=== PATIENT | female | born 1940 | race Caucasian/White ===

== ENCOUNTER → 2019-01-05 | Day surgery (SDC) | payer MEDICARE, BC ==
[~2019-01-05] MED LIST: Tropicamide 0.5% Ophth Soln 15 ML Bottle EYERT SCH
[2019-01-05] MEDS: Brimonidine 0.2% Ophth Soln 5 ML Bottle EYERT SCH ×2 (12:22→13:08)
[2019-01-05] MEDS: Tropicamide 1% Ophth Soln 15 ML Bottle EYERT SCH ×4 (12:23→12:35)
[2019-01-05] MEDS: Phenylephrine 2.5% Ophth Soln 2 ML Bot EYERT SCH ×4 (12:25→12:37)
== END ==
LOC: JD.SDS 11:11
PROVIDERS: ATTEND Ophthalmology
DX: H26.491 Other secondary cataract, right eye (principal); H16.223 Keratoconjunctivitis sicca, not specified as Sjogren's, bilateral; H16.103 Unspecified superficial keratitis, bilateral; H02.834 Dermatochalasis of left upper eyelid; H02.831 Dermatochalasis of right upper eyelid; M19.90 Unspecified osteoarthritis, unspecified site; E78.00 Pure hypercholesterolemia, unspecified; I10 Essential (primary) hypertension; Z98.41 Cataract extraction status, right eye; Z98.42 Cataract extraction status, left eye; Z96.1 Presence of intraocular lens; Z79.02 Long term (current) use of antithrombotics/antiplatelets; Z79.899 Other long term (current) drug therapy; Z87.891 Personal history of nicotine dependence; Z83.518 Family history of other specified eye disorder

== ENCOUNTER 2019-10-16 12:50 | Emergency (ER) | payer MEDICARE, BC ==
[2019-10-16] MEDS ORDERED: Sodium Chloride 0.9% 10 ML Syringe FLUSH PRN (12:59)
[2019-10-16 13:03] VITALS: BP 128/77; PULSE 55
--- NOTE | 2019-10-16 13:44 | CT ---
Head CT Technique: Multiple axial sections through the brain were obtained. Intravenous contrast was not utilized. Comparison: Prior head CT study of 02/27/16. Findings: Aneurysm clip is seen causing artifact. Cystic lesion is noted within the left thalamus measuring 2.5 cm x 2.0 cm. On prior head CT exam this measures 2.3 cm x 1.8 cm. This causes mass effect upon the adjacent left frontal horn as well as slight midline shift. Mild diminished density is noted within portions of the periventricular white matter compatible with small vessel ischemic demyelination change. No other abnormal parenchymal densities are seen. No evidence of intracranial hemorrhage. No midline shift or mass effect is seen. Bone window settings were reviewed which show no acute calvarial abnormality. Mastoid sinuses are clear. Slight mucosal thickening seen within the ethmoid sinuses felt to be chronic. Impression: 1. Aneurysm clip causing artifact. 2. Cystic lesion within the left thalamus identified on prior study and felt to be minimally increased in size. This causes mass effect upon the left frontal horn and mild midline shift. 3. Small vessel ischemic demyelination change. 4. Nothing acute is appreciated on noncontrast head CT exam. Diagnostic code #3 This report was dictated in [place] Standard Time
--- NOTE | 2019-10-16 14:32 | EDM.PDOC ---
ED HPI GENERAL MEDICAL PROBLEM - General Chief Complaint: Neurological Problem Stated Complaint: POSSIBLE STROKE SYMPTOMS Time Seen by Provider: 10/16/19 12:59 Source of Information: Reports: Patient, Family History Limitations: Reports: No Limitations - History of Present Illness INITIAL COMMENTS - FREE TEXT/NARRATIVE: The patient presents with confusion, left sided facial droop and left arm weakness. This has been going on for about 2 months. She has a history of an aneurysm in 2004. She was sent to [facility] and she had clips placed. She has been getting follow up CTs since then. She sends them to the clinic. Her last one was last year and she does not need another one for about 7 years. Her daughter is with her and her family has noticed some left arm weakness and facial drooping. The symptoms will come and go and for the past few days it is more constant. She will also walk with a shuffling gate. She was confused today and that is what prompted her family to bring her in. She denies a headache, fever, chills, cough, congestion, runny nose, chest pain, shortness of breath, abdominal pain, nausea, vomiting or dysuria. Onset: Gradual Duration: Week(s): Location: Reports: Face, Upper Extremity, Left, Lower Extremity, Left Severity: Moderate Improves with: Reports: None Worsens with: Reports: None Associated Symptoms: Reports: No Other Symptoms - Related Data Allergies Allergy/AdvReac Type Severity Reaction Status Date / Time No Known Allergies Allergy Verified 10/16/19 13:02 Home Meds: Home Meds Gabapentin 300 mg PO BEDTIME 06/01/16 [History] Anastrozole [Arimidex] 1 mg PO DAILY 01/04/19 [History] Clopidogrel Bisulfate [Clopidogrel] 75 mg PO DAILY 01/04/19 [History] Diltiazem HCl [Cardizem] 120 mg PO DAILY 01/04/19 [History] Imipramine HCl [Imipramine] 25 mg PO BEDTIME 01/04/19 [History] Lisinopril 30 mg PO DAILY 01/04/19 [History] Rosuvastatin [Crestor] 20 mg PO DAILY 01/04/19 [History] Sertraline [Zoloft] 100 mg PO DAILY 01/04/19 [History] Ascorbic Acid/Vitamin E/Biotin [Hair Skin Nails-Biotin Gummies] 1 tab PO TID [History] Aspirin 81 mg PO BEDTIME 10/16/19 [History] Calcium Carbonate [Calcium] 600 mg PO BID 10/16/19 [History] Dextrin [Fiber] 1 pack PO BID 10/16/19 [History] Fish Oil/Borage/Flax/Om3,6,9 1 [[place] 3-6-9 Complex Softgel] 1 tab PO DAILY [History] L.acidoph,Paracasei, B.lactis [Probiotic] 1 cap PO BID 10/16/19 [History] Metoprolol Succinate [Toprol Xl] 50 mg PO DAILY 10/16/19 [History] Multivitamin [Multivitamins] 1 cap PO DAILY 10/16/19 [History] Past Medical History HEENT History: Reports: Cataract, Impaired Vision Other HEENT History: wears glasses Cardiovascular History: Reports: High Cholesterol, Hypertension Respiratory History: Reports: COPD Genitourinary History: Reports: Urinary Incontinence 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: Musculoskeletal History: Reports: Arthritis, Neck Pain, Chronic Neurological History: Reports: Cerebral Aneurysms, CVA, Other (See Below) Other Neuro History: aneursym Psychiatric History: Reports: Anxiety Oncologic (Cancer) History: Reports: Breast - Infectious Disease History Infectious Disease History: Reports: Chicken Pox, Measles, Mumps - Past Surgical History HEENT Surgical History: Reports: Naso-Sinus Surgery GI Surgical History: Reports: Appendectomy, Cholecystectomy, Colonoscopy Neurological Surgical History: Reports: Other (See Below) Other Neurological Surgeries/Procedures: coil Musculoskeletal Surgical History: Reports: Shoulder Surgery, Other (See Below) Oncologic Surgical History: Reports: Mastectomy Social & Family History - Family History Family Medical History: Noncontributory - Tobacco Use Smoking Status *Q: Former Smoker Used Tobacco, but Quit: Yes Month/Year Tobacco Last Used: 1994 - Caffeine Use Caffeine Use: Reports: Coffee - Recreational Drug Use Recreational Drug Use: No - Living Situation & Occupation Living situation: Reports: Occupation: Retired ED ROS GENERAL - Review of Systems Review Of Systems: See Below Constitutional: Reports: No Symptoms HEENT: Reports: No Symptoms Respiratory: Reports: No Symptoms Cardiovascular: Reports: No Symptoms Endocrine: Reports: No Symptoms GI/Abdominal: Reports: No Symptoms : Reports: No Symptoms Musculoskeletal: Reports: No Symptoms Skin: Reports: No Symptoms Neurological: Reports: Weakness (Moderate weakness to left hand, mild weakness to left arm and left leg with mild facial droop) ED EXAM, NEURO - Physical Exam Exam: See Below Exam Limited By: No Limitations General Appearance: Alert, No Apparent Distress Ears: Normal External Exam Nose: Normal Inspection Head Exam: Atraumatic, Normocephalic Neck: Normal Inspection Respiratory/Chest: No Respiratory Distress, Lungs Clear, Normal Breath Sounds Cardiovascular: Regular Rate, Rhythm, No Edema, No Murmur GI/Abdominal: Soft, Non-Tender, No Organomegaly Neurological: Alert, Oriented x 3, Other (Moderate weakness to the left hand, mild weakness to the left arm and leg) Extremities: Normal Inspection EKG INTERPRETATION EKG Date: 10/16/19 Time: 13:50 Rhythm: Other (sinus bradycardia) Rate (Beats/Min): 58 [place]: Normal P-Wave: Present QRS: Normal ST-T: Normal QT: Normal Course - Vital Signs Last Recorded V/S: Last Vital Signs Temp 98.2 F 10/16/19 12:58 Pulse 55 L 10/16/19 12:58 Resp 19 10/16/19 12:58 BP 128/77 10/16/19 12:58 Pulse Ox 98 10/16/19 12:58 - Orders/Labs/Meds Orders: Active Orders 24 hr Category Date Time Status Cardiac Monitoring [RC] . DIRECTED Care 10/16/19 12:59 Active EKG Documentation Completion [RC] STAT Care 10/16/19 13:00 Active Peripheral IV Care [RC] . DIRECTED Care 10/16/19 13:00 Active Sodium Chloride 0.9% [Saline Flush] Med 10/16/19 12:59 Active 10 ml FLUSH ASDIRECTED PRN Peripheral IV Insertion Adult [OM.PC] Stat Oth 10/16/19 12:59 Ordered Medication Orders Sodium Chloride (Saline Flush) 10 ml FLUSH ASDIRECTED PRN PRN Reason: Keep Vein Open Last Admin: 10/16/19 13:37 Dose: 10 ml Labs: Laboratory Tests 10/16/19 10/16/19 10/16/19 Range/Units 13:35 13:35 13:35 WBC 3.58 L (3.98-10.04) K/mm3 RBC 4.04 (3.98-5.22) M/mm3 Hgb 10.9 L D (11.2-15.7) gm/dl Hct 34.3 (34.1-44.9) % MCV 84.9 (79.4-94.8) fl MCH 27.0 (25.6-32.2) pg MCHC 31.8 L (32.2-35.5) g/dl RDW Std Deviation 42.4 (36.4-46.3) fL Plt Count 154 L (182-369) K/mm3 MPV 9.6 (9.4-12.3) fl Neut % (Auto) 54.1 (34.0-71.1) % Lymph % (Auto) 31.3 (19.3-51.7) % [place] % (Auto) 11.2 (4.7-12.5) % Eos % (Auto) 2.5 (0.7-5.8) Baso % (Auto) 0.6 (0.1-1.2) % Neut # (Auto) 1.94 (1.56-6.13) K/mm3 Lymph # (Auto) 1.12 L (1.18-3.74) K/mm3 [place] # (Auto) 0.40 H (0.24-0.36) K/mm3 Eos # (Auto) 0.09 (0.04-0.36) K/mm3 Baso # (Auto) 0.02 (0.01-0.08) K/mm3 PT 12.6 H (9.7-12.0) SECONDS INR 1.17 APTT 24 (22-31) SECONDS Sodium 144 (136-145) mEq/L Potassium 3.2 L (3.5-5.1) mEq/L Chloride 108 H (98-107) mEq/L Carbon Dioxide 26 (21-32) mEq/L Anion Gap 13.2 (5-15) BUN 15 (7-18) mg/dL Creatinine 0.9 (0.55-1.02) mg/dL Est Cr Clr Drug Dosing TNP Estimated GFR (MDRD) > 60 (>60) mL/min BUN/Creatinine Ratio 16.7 (14-18) Glucose 123 H (83-115) mg/dL Calcium 8.7 (8.5-10.1) mg/dL Total Bilirubin 0.2 (0.2-1.0) mg/dL AST 20 (15-37) U/L ALT 21 (14-59) U/L Alkaline Phosphatase 90 (46-116) U/L Total Protein 6.5 (6.4-8.2) g/dl Albumin 3.2 L (3.4-5.0) g/dl Globulin 3.3 gm/dL Albumin/Globulin Ratio 1.0 (1-2) Urine Color (Yellow) Urine Appearance (Clear) Urine pH (5.0-8.0) Ur Specific [place] (1.005-1.030) Urine Protein (Negative) Urine Glucose (UA) (Negative) Urine Ketones (Negative) Urine Occult Blood (Negative) Urine Nitrite (Negative) Urine Bilirubin (Negative) Urine Urobilinogen (0.2-1.0) Ur Leukocyte Esterase (Negative) Urine RBC (0-5) /hpf Urine WBC (0-5) /hpf Ur Epithelial Cells (0-5) /hpf Urine Bacteria (FEW) /hpf Urine Mucus (FEW) /hpf 10/16/19 Range/Units 14:42 WBC (3.98-10.04) K/mm3 RBC (3.98-5.22) M/mm3 Hgb (11.2-15.7) gm/dl Hct (34.1-44.9) % MCV (79.4-94.8) fl MCH (25.6-32.2) pg MCHC (32.2-35.5) g/dl RDW Std Deviation (36.4-46.3) fL Plt Count (182-369) K/mm3 MPV (9.4-12.3) fl Neut % (Auto) (34.0-71.1) % Lymph % (Auto) (19.3-51.7) % [place] % (Auto) (4.7-12.5) % Eos % (Auto) (0.7-5.8) Baso % (Auto) (0.1-1.2) % Neut # (Auto) (1.56-6.13) K/mm3 Lymph # (Auto) (1.18-3.74) K/mm3 [place] # (Auto) (0.24-0.36) K/mm3 Eos # (Auto) (0.04-0.36) K/mm3 Baso # (Auto) (0.01-0.08) K/mm3 PT (9.7-12.0) SECONDS INR APTT (22-31) SECONDS Sodium (136-145) mEq/L Potassium (3.5-5.1) mEq/L Chloride (98-107) mEq/L Carbon Dioxide (21-32) mEq/L Anion Gap (5-15) BUN (7-18) mg/dL Creatinine (0.55-1.02) mg/dL Est Cr Clr Drug Dosing Estimated GFR (MDRD) (>60) mL/min BUN/Creatinine Ratio (14-18) Glucose (83-115) mg/dL Calcium (8.5-10.1) mg/dL Total Bilirubin (0.2-1.0) mg/dL AST (15-37) U/L ALT (14-59) U/L Alkaline Phosphatase (46-116) U/L Total Protein (6.4-8.2) g/dl Albumin (3.4-5.0) g/dl Globulin gm/dL Albumin/Globulin Ratio (1-2) Urine Color Yellow (Yellow) Urine Appearance Clear (Clear) Urine pH 7.0 (5.0-8.0) Ur Specific [place] 1.020 (1.005-1.030) Urine Protein Negative (Negative) Urine Glucose (UA) Negative (Negative) Urine Ketones Negative (Negative) Urine Occult Blood Negative (Negative) Urine Nitrite Negative (Negative) Urine Bilirubin Negative (Negative) Urine Urobilinogen 0.2 (0.2-1.0) Ur Leukocyte Esterase 2+ H (Negative) Urine RBC 0-5 (0-5) /hpf Urine WBC 5-10 H (0-5) /hpf Ur Epithelial Cells 5-10 H (0-5) /hpf Urine Bacteria Few (FEW) /hpf Urine Mucus Not seen (FEW) /hpf Meds: Medications Generic Name Dose Route Start Last Admin Trade Name Freq PRN Reason Stop Dose Admin Sodium Chloride 10 ml 10/16/19 12:59 10/16/19 13:37 Saline Flush FLUSH 10 ml ASDIRECTED PRN Administration Keep Vein Open - Re-Assessments/Exams Free Text/Narrative Re-Assessment/Exam: 10/16/19 14:39 A stroke alert was called and I went right into the room. Her last time known wall was about 2 months ago. These symptoms have been coming and going and more constant the past few days. She had some confusion this morning and that is what convinced her to come to the hospital. I have ordered labs, CT of her head and an EKG. The EKG shows a NSR with no acute changes. 10/16/19 14:41 Her CBC looks good. Her INR is 1.17. Her K was low at 3.2. Her glucose was elevated at 123. Her CT of her head shows aneurysm clip causing artifact. Cystic lesion within the left thalamus identified on prior study and felt to be minimally increased in size. This causes mass effect upon the left frontal horn and mild midline shift. Small vessel ischemic demyelination change. Nothing acute is appreciated on noncontrast head CT exam. I am concerned this cyst is causing the symptoms. I have called [facility] in [place] and they will call me back. 10/16/19 15:[address] Amaya the neurologist thermostatic controls supervisor and Dr Amaral the neurosurgeon. Neither of them felt that the cyst was the cause of her symptoms. Dr Amaral would not do anything surgical with her. Dr Amaya felt this could have been a stroke she had 2 months ago. What does not make sense is the waxing and waning of symptoms she had and now her symptoms are constant the past couple of days. I do not feel she is a candidate to stay here. They did accept her in [place]. I will be sending her to [facility] in [place]. Departure - Departure Time of Disposition: 15:40 Disposition: DC/Tfer to Acute Hospital 02 Condition: Fair Clinical Impression: Left-sided weakness, Intracranial arachnoid cyst - Discharge Information Referrals: Eliot Samuels MD [Primary Care Provider] - Forms: ED Department Discharge Sepsis Event Note - Evaluation Sepsis Screening Result: No Definite Risk - Focused Exam Vital Signs: Vital Signs Temp Pulse Resp BP Pulse Ox 10/16/19 12:58 98.2 F 55 L 19 128/77 98 Date Exam was Performed: 10/16/19 Time Exam was Performed: 15:37 - My Orders Last 24 Hours: My Active Orders 10/16/19 12:59 Cardiac Monitoring [RC] . DIRECTED Sodium Chloride 0.9% [Saline Flush] 10 ml FLUSH ASDIRECTED PRN Peripheral IV Insertion Adult [OM.PC] Stat 10/16/19 13:00 EKG Documentation Completion [RC] STAT Peripheral IV Care [RC] . DIRECTED - Assessment/Plan Last 24 Hours: My Active Orders 10/16/19 12:59 Cardiac Monitoring [RC] . DIRECTED Sodium Chloride 0.9% [Saline Flush] 10 ml FLUSH ASDIRECTED PRN Peripheral IV Insertion Adult [OM.PC] Stat 10/16/19 13:00 EKG Documentation Completion [RC] STAT Peripheral IV Care [RC] . DIRECTED
== END 2019-10-16 17:02 ==
LOC: JD.ED 12:50
DX: G93.0 Cerebral cysts (principal); R53.1 Weakness; I10 Essential (primary) hypertension; E78.00 Pure hypercholesterolemia, unspecified; J44.9 Chronic obstructive pulmonary disease, unspecified; M19.90 Unspecified osteoarthritis, unspecified site; F41.9 Anxiety disorder, unspecified; Z86.73 Personal history of transient ischemic attack (TIA), and cerebral infarction without residual deficits; Z87.891 Personal history of nicotine dependence; Z79.82 Long term (current) use of aspirin; Z79.02 Long term (current) use of antithrombotics/antiplatelets; Z79.899 Other long term (current) drug therapy
CPT/HCPCS: 36415; 70450; 70450-26; 80053; 81001; 82962; 85025; 85610; 85730; 93005; 93010; 99285; 99285-25

== ENCOUNTER 2019-11-05 21:48 | Emergency (ER) | payer MEDICARE, BC ==
[2019-11-05 22:13] VITALS: BP 129/78; PULSE 72
--- NOTE | 2019-11-05 23:06 | EDM.PDOC ---
ED HPI GENERAL MEDICAL PROBLEM - General Chief Complaint: Lower Extremity Injury/Pain Stated Complaint: FALL AT HOME CONFUSED Time Seen by Provider: 11/05/19 22:45 Source of Information: Reports: Patient, Family (Daughter, grandaukarena) History Limitations: Reports: No Limitations - History of Present Illness INITIAL COMMENTS - FREE TEXT/NARRATIVE: Mrs. 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 She states that she was getting up out of a chair, lost her balance, and slid to the floor, landing on her buttocks, around 20:00 this evening. She was able to get up, with difficulty, but now presents to the ED with a complaint of bilateral hip pain. No prior hip or pelvis fracture. She is otherwise uninjured. Her PCP is Dr. Eliot Foley. She does not recall the name of her Neurologist. Her Oncologist is Dr. Domenico Simental. She received an influenza vaccine this season. Left Hip Pain Score (Numeric/FACES): 7 - Related Data Allergies Allergy/AdvReac Type Severity Reaction Status Date / Time No Known Allergies Allergy Verified 10/16/19 13:02 Home Meds: Home Meds Gabapentin 300 mg PO BEDTIME 06/01/16 [History] Anastrozole [Arimidex] 1 mg PO DAILY 01/04/19 [History] Clopidogrel Bisulfate [Clopidogrel] 75 mg PO DAILY 01/04/19 [History] Diltiazem HCl [Cardizem] 120 mg PO DAILY 01/04/19 [History] Imipramine HCl [Imipramine] 25 mg PO BEDTIME 01/04/19 [History] Lisinopril 30 mg PO DAILY 01/04/19 [History] Rosuvastatin [Crestor] 20 mg PO DAILY 01/04/19 [History] Sertraline [Zoloft] 100 mg PO DAILY 01/04/19 [History] Ascorbic Acid/Vitamin E/Biotin [Hair Skin Nails-Biotin Gummies] 1 tab PO TID [History] Aspirin 81 mg PO BEDTIME 10/16/19 [History] Calcium Carbonate [Calcium] 600 mg PO BID 10/16/19 [History] Dextrin [Fiber] 1 pack PO BID 10/16/19 [History] Fish Oil/Borage/Flax/Om3,6,9 1 [[place] 3-6-9 Complex Softgel] 1 tab PO DAILY [History] L.acidoph,Paracasei, B.lactis [Probiotic] 1 cap PO BID 10/16/19 [History] Metoprolol Succinate [Toprol Xl] 50 mg PO DAILY 10/16/19 [History] Multivitamin [Multivitamins] 1 cap PO DAILY 10/16/19 [History] Past Medical History HEENT History: Reports: Impaired Vision Other HEENT History: wears glasses Cardiovascular History: Reports: High Cholesterol, Hypertension Respiratory History: Reports: COPD (suspected, not tested) Genitourinary History: Reports: Urinary Incontinence : 3 Para: 3 Musculoskeletal History: Reports: Arthritis, Osteoporosis Neurological History: Reports: Cerebral Aneurysms (s/p subarachnoid hemorrhage 2004 -> aneurysmal clips), Other (See Below) (Corticobasal degeneration) Psychiatric History: Reports: Anxiety Oncologic (Cancer) History: Reports: Breast (left) - Infectious Disease History Infectious Disease History: Reports: Chicken Pox, Measles, Mumps - Past Surgical History Head Surgeries/Procedures: Reports: Craniotomy (Cerebral aneurysmal clips) HEENT Surgical History: Reports: Cataract Surgery (bilateral), Naso-Sinus Surgery GI Surgical History: Reports: Appendectomy, Cholecystectomy (around 2009), Colonoscopy Musculoskeletal Surgical History: Reports: Shoulder Surgery (bilateral, open) Oncologic Surgical History: Reports: Mastectomy (left) Social & Family History - Family History Family Medical History: Noncontributory - Tobacco Use Smoking Status *Q: Former Smoker Years of Tobacco use: 35 Packs/Tins Daily: 3 Month/Year Tobacco Last Used: Quit 1994 - Caffeine Use Caffeine Use: Reports: Coffee - Alcohol Use Alcohol Use History: Yes Alcohol Use Frequency: Rarely - Recreational Drug Use Recreational Drug Use: No - Living Situation & Occupation Living situation: Reports: , Alone Occupation: Retired Review of Systems - Review of Systems Review Of Systems: Comprehensive ROS is negative, except as noted in HPI. Musculoskeletal: Reports: Neck Pain, Back Pain ED EXAM, GENERAL - Physical Exam Exam: See Below Exam Limited By: No Limitations General Appearance: Alert, WD/WN, No Apparent Distress Extremities: Other (No visible abnormality to either hip, such as swelling, erythema, ecchymosis, or abrasion. Minimal tenderness to palpation of the bilateral anterior hips, with no tenderness to palpation over either greater trochanter or to either posterior hip. I was able to flex the patient's left hip to 90, and internally and externally rotate the hip without pain. The patient experienced mild anterior pain when I lowered her hip, however, she was resisting the motion at the time, suggesting a musculoskeletal etiology. No pain with the same ROM on the right. Neurovascular status of both lower extremities is intact. No pain with compression of the pelvis, and no laxity felt.) Course - Vital Signs Last Recorded V/S: Last Vital Signs Temp 38.6 C H 11/05/19 22:11 Pulse 72 11/05/19 22:11 Resp 20 11/05/19 22:11 BP 129/78 11/05/19 22:11 Pulse Ox 94 L 11/05/19 22:11 - Orders/Labs/Meds Orders: Active Orders 24 hr Category Date Time Status Hip Min 2V or 3V Rt [CR] Stat Exams 11/05/19 23:01 Taken Hip Min 2V or 3V w Pelvis Lt [CR] Stat Exams 11/05/19 23:01 Taken - Re-Assessments/Exams Free Text/Narrative Re-Assessment/Exam: 11/05/19 23:04 My suspicion for a hip fracture is very low, although there is a small possibility that she could have a pelvic fracture. I have ordered x-rays of her bilateral hips and pelvis. The patient declined an offer for pain medication. 11/05/19 23:50 Radiographs of the bilateral hips and pelvis appear to demonstrate bilateral hip arthritic changes. There are bilateral trochanteric bone spurs. There is osteopenia. No fractures or dislocations identified. Pelvic phleboliths incidentally noted. Formal read per the Radiologist pending. 11/05/19 23:59 Test results discussed with the patient, her daughter, and granddaughter. The patient appears to have strained her left hip, but I do not see an indication for admission to the hospital. I did discuss that the patient's bones appear to have low density, and the patient confirmed that she has osteoporosis, which is being treated. We discussed the wisdom of her continuing to live alone, and I expressed some concern that because of her fall risk, she may be better off in assisted living. The family agreed that they will discuss this issue with Dr. Allie Jackson. For today's purposes, the patient will be discharged home. She may take [id number] Tylenol as needed for discomfort. Departure - Departure Time of Disposition: 00:01 Disposition: Home, Self-Care 01 Condition: Good Clinical Impression: Strain of left hip, Fall at home - Discharge Information *PRESCRIPTION DRUG MONITORING PROGRAM REVIEWED*: Not Applicable *COPY OF PRESCRIPTION DRUG MONITORING REPORT IN PATIENT FRANCISCA: Not Applicable Instructions: Muscle Strain, [id number] Referrals: Eliot Samuels MD [Primary Care Provider] - Domenico Simental MD [Ordering Only Provider] - Forms: ED Department Discharge Additional Instructions: You were seen in the emergency room after sliding off a chair as you were trying to get up, falling onto your buttocks. Workup in the ER included x-rays of both of her hips and your pelvis. Your x-rays show that you have arthritis in both of your hips, and that your bone density is low, however, no broken bones or dislocations were found. Based on your history, physical exam, and ER x-rays, you have most likely strained your left hip. We recommend that you take [id number] Tylenol as needed for discomfort. Consider using a walker at home. As discussed, we recommend that you follow-up with your PCP, Dr. Eliot Keller, to discuss the possibility of your moving into assisted living. If any other problems, please do not hesitate to return to the ER. Sepsis Event Note - Evaluation Sepsis Screening Result: No Definite Risk - Focused Exam Vital Signs: Vital Signs Temp Pulse Resp BP Pulse Ox 11/05/19 22:11 38.6 C H 72 20 129/78 94 L Date Exam was Performed: 11/06/19 Time Exam was Performed: 02:15 - My Orders Last 24 Hours: My Active Orders 11/05/19 23:01 Hip Min 2V or 3V Rt [CR] Stat Hip Min 2V or 3V w Pelvis Lt [CR] Stat - Assessment/Plan Last 24 Hours: My Active Orders 11/05/19 23:01 Hip Min 2V or 3V Rt [CR] Stat Hip Min 2V or 3V w Pelvis Lt [CR] Stat
--- NOTE | 2019-11-06 07:25 | CR ---
Right hip: AP and frog-leg lateral views of right hip were obtained. Mild degenerative change within the right hip is seen. Osteopenia is noted. No fracture or other bony abnormality is identified. Impression: 1. Mild degenerative change and osteopenia. 2. Nothing acute is seen on two-view right hip exam. Diagnostic code #2 This report was dictated in [place] Standard Time
--- NOTE | 2019-11-06 07:25 | CR ---
Pelvis and left hip: AP view of the pelvis was obtained as well as AP and frog-leg lateral views of the left hip. Comparison: No previous study. Degenerative change and scoliosis partially visualized within the spine. Bony structures are osteopenic. Mild degenerative change is noted within both hips. No acute fracture or dislocation is noted. Impression: 1. Degenerative change as noted above. 2. Osteopenia. Nothing acute is seen. Diagnostic code #2 This report was dictated in [place] Standard Time
== END 2019-11-06 00:10 | disposition home or self-care (01) ==
LOC: JD.ED 21:48
DX: S76.012A Strain of muscle, fascia and tendon of left hip, initial encounter (principal); M25.551 Pain in right hip; I10 Essential (primary) hypertension; Z79.82 Long term (current) use of aspirin; Z79.899 Other long term (current) drug therapy; Z98.49 Cataract extraction status, unspecified eye; Z90.49 Acquired absence of other specified parts of digestive tract; Z85.3 Personal history of malignant neoplasm of breast; Z87.891 Personal history of nicotine dependence; W07.XXXA Fall from chair, initial encounter; Y92.009 Unspecified place in unspecified non-institutional (private) residence as the place of occurrence of the external cause
CPT/HCPCS: 73502-26-LT; 73502-26-RT; 73502-LT; 73502-RT; 99282; 99283-25

== ENCOUNTER 2020-09-27 17:10 | Emergency (ER) | payer MEDICARE, BC ==
[2020-09-27 17:29] VITALS: BP 138/85; PULSE 82
--- NOTE | 2020-09-27 18:31 | EDM.PDOC ---
<Mikhail Calloway Rosita - Last Filed: 09/27/20 19:17> ED HPI GENERAL MEDICAL PROBLEM - General Chief Complaint: Cardiovascular Problem Stated Complaint: NECK PAIN AND NO BALANCE UNABLE TO STAND ALONE Time Seen by Provider: 09/27/20 17:26 Source of Information: Reports: Patient, RN Notes Reviewed - History of Present Illness INITIAL COMMENTS - FREE TEXT/NARRATIVE: 80 yr old female comes in with neck pain, balance difficulty. She does have hx of previous stroke. She also has hx of Parkinsons's Disease that involves her L hand and arm more than the right. She has no headache. Denies anything that sounds like vertigo or near syncope. No cough, chest pain or difficulty breathing. She states she had no neck pain any worse than usual yesterday, and states balance was OK yesterday. Neck Pain Score (Numeric/FACES): 1 - Related Data Allergies Allergy/AdvReac Type Severity Reaction Status Date / Time No Known Allergies Allergy Verified 09/27/20 17:29 Home Meds: Home Meds Gabapentin 300 mg PO BEDTIME 06/01/16 [History] Anastrozole [Arimidex] 1 mg PO DAILY 01/04/19 [History] Clopidogrel Bisulfate [Clopidogrel] 75 mg PO DAILY 01/04/19 [History] Lisinopril 30 mg PO DAILY 01/04/19 [History] Rosuvastatin [Crestor] 20 mg PO DAILY 01/04/19 [History] Sertraline [Zoloft] 100 mg PO DAILY 01/04/19 [History] dilTIAZem HCL [Cardizem] 120 mg PO DAILY 01/04/19 [History] Ascorbic Acid/Vitamin E/Biotin [Hair Skin Nails-Biotin Gummies] 1 tab PO TID 10/16/19 [History] Aspirin 81 mg PO BEDTIME 10/16/19 [History] Calcium Carbonate [Calcium] 600 mg PO BID 10/16/19 [History] Dextrin [Fiber] 1 pack PO BID 10/16/19 [History] Fish Oil/Borage/Flax/Om3,6,9 1 [[place] 3-6-9 Complex Softgel] 1 tab PO DAILY 10/16/19 [History] L.acidoph,Paracasei, B.lactis [Probiotic] 1 cap PO BID 10/16/19 [History] Metoprolol Succinate [Toprol Xl] 50 mg PO DAILY 10/16/19 [History] Multivitamin [Multivitamins] 1 cap PO DAILY 10/16/19 [History] Potassium Chloride 20 meq PO DAILY #30 tablet.er 09/27/20 [Rx] predniSONE [Prednisone] 20 mg PO BID #15 tablet 09/27/20 [Rx] Past Medical History HEENT History: Reports: Impaired Vision Other HEENT History: wears glasses Cardiovascular History: Reports: High Cholesterol, Hypertension Respiratory History: Reports: COPD Genitourinary History: Reports: Urinary Incontinence SUPERVISORY HISTORIAN History: Reports: Other SUPERVISORY HISTORIAN History: Musculoskeletal History: Reports: Arthritis, Osteoporosis Neurological History: Reports: Cerebral Aneurysms, Other (See Below) Other Neuro History: aneursym Psychiatric History: Reports: Anxiety Oncologic (Cancer) History: Reports: Breast - Infectious Disease History Infectious Disease History: Reports: Chicken Pox, Measles, Mumps - Past Surgical History Head Surgeries/Procedures: Reports: Craniotomy HEENT Surgical History: Reports: Cataract Surgery, Naso-Sinus Surgery GI Surgical History: Reports: Appendectomy, Cholecystectomy, Colonoscopy Neurological Surgical History: Reports: Other (See Below) Other Neurological Surgeries/Procedures: coil Musculoskeletal Surgical History: Reports: Shoulder Surgery Other Musculoskeletal Surgeries/Procedures:: left arm rods Oncologic Surgical History: Reports: Mastectomy Other Oncologic Surgeries/Procedures: LEFT Social & Family History - Family History Family Medical History: No Pertinent Family History - Tobacco Use Tobacco Use Status *Q: Never Tobacco User - Caffeine Use Caffeine Use: Reports: Coffee - Recreational Drug Use Recreational Drug Use: No - Living Situation & Occupation Living situation: Reports: , Alone Occupation: Retired ED ROS GENERAL - Review of Systems Review Of Systems: See Below Constitutional: Denies: Fever, Chills HEENT: Reports: No Symptoms Respiratory: Denies: Shortness of Breath, Cough Cardiovascular: Denies: Chest Pain GI/Abdominal: Denies: Abdominal Pain, Diarrhea, Nausea, Vomiting Musculoskeletal: Denies: Neck Pain, Shoulder Pain Skin: Reports: No Symptoms Neurological: Reports: Difficulty Walking (due to balance difficulty). Denies: Headache ED EXAM, GENERAL - Physical Exam Exam: See Below General Appearance: Alert Head: Atraumatic Neck: Supple, Tender Lateral (R post lat. ), Tender Midline Respiratory/Chest: No Respiratory Distress, Lungs Clear, Normal Breath Sounds. No: Rhonchi, Wheezing Cardiovascular: Regular Rate, Rhythm GI/Abdominal: Soft, Non-Tender Extremities: Normal Inspection. No: Leg Pain, Increased Warmth, Redness Neurological: Alert, Oriented, Other (She has contracture (chronic) L hand and to a lesser extent L forearm at the elbow joint. There is no obvious acute focal weakness upper or lower extrem on exam. No facial droop, no speech difficulty. ) Skin Exam: Warm, Dry, Normal Color #1 Interpretation EKG Date: 09/27/20 Rhythm: NSR [place]: Normal P-Wave: Present QRS: Normal ST-T: Other (nonspecific partial t wave inversions V 4-6.) Course - Re-Assessments/Exams Free Text/Narrative Re-Assessment/Exam: 09/27/20 19:[address] shows no acute intracranial process. 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 S/P aneurysm coiling. ] CT of C spine shows a lot degenerative changes. Multiple small CYSTIC LESIONs present, correlate clinically for multiple myeloma. K+ is low at 3.0. Will also check UTI to make sure that she does not have UTI. Change of shift, will transfer care to Dr Batres. Departure - Departure Disposition: Home, Self-Care 01 Clinical Impression: Degenerative arthritis of cervical spine Qualifiers: Spinal osteoarthritis complication: without myelopathy or radiculopathy Qualified Code(s): M47.812 - Spondylosis without myelopathy or radiculopathy, cervical region Prescriptions: Potassium Chloride 20 meq PO DAILY #30 tablet.er predniSONE [Prednisone] 20 mg PO BID #15 tablet Referrals: Eliot Samuels MD [Primary Care Provider] - Forms: ED Department Discharge Additional Instructions: Evaluation in the emergency room today in regards to increasing severe pain left side of the neck. Associated generalized weakness and poor balance. Poor balance appears to be secondary to advanced degenerative arthritis in the cervical spine or neck bones. This is causing some compression of the vertebral arteries that deliver blood supply to the back of the brain which coordinates your balance. Looking upwards will kink the blood vessels and potentially cause you to fall. Similarly looking down a steep stairwell or a deep hole could make you fall forwards. Currently severe inflammation is localized to the left side of your neck. You were given a small dose of pain medication and initial dose of steroid dexamethasone in the emergency room tonight. Suggest continuing prednisone 20 mg tablet with breakfast and supper for 5 days and then once in the morning only for another 5 days to start to realleviate inflammation in the left side of your neck. Your potassium was also found to be quite low in the emergency room and you will need a potassium pill called Slow-K once tablet in the morning daily. Looking at your medication list I would also advise you to discontinue medication called imipramine which you will likely been on for many years. It carries a host of side effects which can include loss of balance and dizziness dry mouth visual changes constipation etc. Suggest stopping this medication for the next 2 to 3 weeks and after visit with your doctor in the next week to 10 days discuss whether you were missing this medication at all. You should make an appointment to follow-up with your doctor in the clinic sometime in the next 7 to 10 days. Before Sig[facility]. Sepsis Event Note (ED) - Evaluation Sepsis Screening Result: No Definite Risk <Angel aBtres - Last Filed: 09/27/20 21:34> Course - Vital Signs Last Recorded V/S: Last Vital Signs Temp 36.8 C 09/27/20 17:22 Pulse 82 09/27/20 17:22 Resp 15 09/27/20 17:22 BP 138/85 09/27/20 17:22 Pulse Ox 98 09/27/20 17:22 - Orders/Labs/Meds Orders: Active Orders 24 hr Category Date Time Status EKG Documentation Completion [RC] STAT Care 09/27/20 17:32 Active Cervical Spine wo Cont [CT] Stat Exams 09/27/20 17:55 Taken Chest 1V Frontal [CR] Stat Exams 09/27/20 20:02 Taken Head wo Cont [CT] Stat Exams 09/27/20 17:52 Taken Sodium Chloride 0.9% [Normal Saline] 1,000 ml Med 09/27/20 18:45 Active IV ASDIRECTED Medication Orders Sodium Chloride (Normal Saline) 1,000 mls @ 75 mls/hr IV ASDIRECTED ANGEL Last Admin: 09/27/20 18:45 Dose: 75 mls/hr Documented by: CHASE Labs: Laboratory Tests 09/27/20 09/27/20 09/27/20 Range/Units 17:30 17:30 17:30 WBC 6.61 (3.98-10.04) K/mm3 RBC 4.29 (3.98-5.22) M/mm3 Hgb 11.2 (11.2-15.7) gm/dl Hct 35.3 (34.1-44.9) % MCV 82.3 (79.4-94.8) fl MCH 26.1 (25.6-32.2) pg MCHC 31.7 L (32.2-35.5) g/dl RDW Std Deviation 39.8 (36.4-46.3) fL Plt Count 190 (182-369) K/mm3 MPV 9.9 (9.4-12.3) fl Neut % (Auto) 80.9 H (34.0-71.1) % Lymph % (Auto) 9.5 L (19.3-51.7) % [place] % (Auto) 9.2 (4.7-12.5) % Eos % (Auto) 0.2 L (0.7-5.8) Baso % (Auto) 0.0 L (0.1-1.2) % Neut # (Auto) 5.35 (1.56-6.13) K/mm3 Lymph # (Auto) 0.63 L (1.18-3.74) K/mm3 [place] # (Auto) 0.61 H (0.24-0.36) K/mm3 Eos # (Auto) 0.01 L (0.04-0.36) K/mm3 Baso # (Auto) 0.00 L (0.01-0.08) K/mm3 Manual Slide Review Abnormal smear D-Dimer, Quantitative (0.19-0.50) mg/L Sodium 136 (136-145) mEq/L Potassium 3.0 L (3.5-5.1) mEq/L Chloride 98 (98-107) mEq/L Carbon Dioxide 28 (21-32) mEq/L Anion Gap 13.0 (5-15) BUN 27 H (7-18) mg/dL Creatinine 1.0 (0.55-1.02) mg/dL Est Cr Clr Drug Dosing 36.08 mL/min Estimated GFR (MDRD) 53 (>60) mL/min BUN/Creatinine Ratio 27.0 H (14-18) Glucose 127 H (83-115) mg/dL Calcium 9.2 (8.5-10.1) mg/dL Magnesium 1.8 (1.8-2.4) mg/dl Ferritin (8-252) ng/ml Total Bilirubin 0.5 (0.2-1.0) mg/dL AST 18 (15-37) U/L ALT 18 (14-59) U/L Alkaline Phosphatase 86 (46-116) U/L Lactate Dehydrogenase (81-234) U/L C-Reactive Protein 14.3 H* (<1.0) mg/dL Total Protein 8.0 (6.4-8.2) g/dl Albumin 3.5 (3.4-5.0) g/dl Globulin 4.5 gm/dL Albumin/Globulin Ratio 0.8 L (1-2) Urine Color (Yellow) Urine Appearance (Clear) Urine pH (5.0-8.0) Ur Specific [place] (1.005-1.030) Urine Protein (Negative) Urine Glucose (UA) (Negative) Urine Ketones (Negative) Urine Occult Blood (Negative) Urine Nitrite (Negative) Urine Bilirubin (Negative) Urine Urobilinogen (0.2-1.0) Ur Leukocyte Esterase (Negative) Urine RBC (0-5) /hpf Urine WBC (0-5) /hpf Ur Epithelial Cells (0-5) /hpf Urine Bacteria (FEW) /hpf Urine Mucus (FEW) /hpf 09/27/20 09/27/20 09/27/20 Range/Units 17:30 17:30 17:30 WBC (3.98-10.04) K/mm3 RBC (3.98-5.22) M/mm3 Hgb (11.2-15.7) gm/dl Hct (34.1-44.9) % MCV (79.4-94.8) fl MCH (25.6-32.2) pg MCHC (32.2-35.5) g/dl RDW Std Deviation (36.4-46.3) fL Plt Count (182-369) K/mm3 MPV (9.4-12.3) fl Neut % (Auto) (34.0-71.1) % Lymph % (Auto) (19.3-51.7) % [place] % (Auto) (4.7-12.5) % Eos % (Auto) (0.7-5.8) Baso % (Auto) (0.1-1.2) % Neut # (Auto) (1.56-6.13) K/mm3 Lymph # (Auto) (1.18-3.74) K/mm3 [place] # (Auto) (0.24-0.36) K/mm3 Eos # (Auto) (0.04-0.36) K/mm3 Baso # (Auto) (0.01-0.08) K/mm3 Manual Slide Review D-Dimer, Quantitative 1.43 H (0.19-0.50) mg/L Sodium (136-145) mEq/L Potassium (3.5-5.1) mEq/L Chloride (98-107) mEq/L Carbon Dioxide (21-32) mEq/L Anion Gap (5-15) BUN (7-18) mg/dL Creatinine (0.55-1.02) mg/dL Est Cr Clr Drug Dosing mL/min Estimated GFR (MDRD) (>60) mL/min BUN/Creatinine Ratio (14-18) Glucose (83-115) mg/dL Calcium (8.5-10.1) mg/dL Magnesium (1.8-2.4) mg/dl Ferritin 331 H (8-252) ng/ml Total Bilirubin (0.2-1.0) mg/dL AST (15-37) U/L ALT (14-59) U/L Alkaline Phosphatase (46-116) U/L Lactate Dehydrogenase 209 (81-234) U/L C-Reactive Protein (<1.0) mg/dL Total Protein (6.4-8.2) g/dl Albumin (3.4-5.0) g/dl Globulin gm/dL Albumin/Globulin Ratio (1-2) Urine Color (Yellow) Urine Appearance (Clear) Urine pH (5.0-8.0) Ur Specific [place] (1.005-1.030) Urine Protein (Negative) Urine Glucose (UA) (Negative) Urine Ketones (Negative) Urine Occult Blood (Negative) Urine Nitrite (Negative) Urine Bilirubin (Negative) Urine Urobilinogen (0.2-1.0) Ur Leukocyte Esterase (Negative) Urine RBC (0-5) /hpf Urine WBC (0-5) /hpf Ur Epithelial Cells (0-5) /hpf Urine Bacteria (FEW) /hpf Urine Mucus (FEW) /hpf 09/27/20 Range/Units 19:35 WBC (3.98-10.04) K/mm3 RBC (3.98-5.22) M/mm3 Hgb (11.2-15.7) gm/dl Hct (34.1-44.9) % MCV (79.4-94.8) fl MCH (25.6-32.2) pg MCHC (32.2-35.5) g/dl RDW Std Deviation (36.4-46.3) fL Plt Count (182-369) K/mm3 MPV (9.4-12.3) fl Neut % (Auto) (34.0-71.1) % Lymph % (Auto) (19.3-51.7) % [place] % (Auto) (4.7-12.5) % Eos % (Auto) (0.7-5.8) Baso % (Auto) (0.1-1.2) % Neut # (Auto) (1.56-6.13) K/mm3 Lymph # (Auto) (1.18-3.74) K/mm3 [place] # (Auto) (0.24-0.36) K/mm3 Eos # (Auto) (0.04-0.36) K/mm3 Baso # (Auto) (0.01-0.08) K/mm3 Manual Slide Review D-Dimer, Quantitative (0.19-0.50) mg/L Sodium (136-145) mEq/L Potassium (3.5-5.1) mEq/L Chloride (98-107) mEq/L Carbon Dioxide (21-32) mEq/L Anion Gap (5-15) BUN (7-18) mg/dL Creatinine (0.55-1.02) mg/dL Est Cr Clr Drug Dosing mL/min Estimated GFR (MDRD) (>60) mL/min BUN/Creatinine Ratio (14-18) Glucose (83-115) mg/dL Calcium (8.5-10.1) mg/dL Magnesium (1.8-2.4) mg/dl Ferritin (8-252) ng/ml Total Bilirubin (0.2-1.0) mg/dL AST (15-37) U/L ALT (14-59) U/L Alkaline Phosphatase (46-116) U/L Lactate Dehydrogenase (81-234) U/L C-Reactive Protein (<1.0) mg/dL Total Protein (6.4-8.2) g/dl Albumin (3.4-5.0) g/dl Globulin gm/dL Albumin/Globulin Ratio (1-2) Urine Color Yellow (Yellow) Urine Appearance Clear (Clear) Urine pH 7.0 (5.0-8.0) Ur Specific [place] 1.020 (1.005-1.030) Urine Protein 1+ H (Negative) Urine Glucose (UA) Negative (Negative) Urine Ketones 2+ H (Negative) Urine Occult Blood Negative (Negative) Urine Nitrite Negative (Negative) Urine Bilirubin Negative (Negative) Urine Urobilinogen 0.2 (0.2-1.0) Ur Leukocyte Esterase Negative (Negative) Urine RBC Not seen (0-5) /hpf Urine WBC Not seen (0-5) /hpf Ur Epithelial Cells 0-5 (0-5) /hpf Urine Bacteria Rare (FEW) /hpf Urine Mucus Not seen (FEW) /hpf Meds: Medications Generic Name Dose Route Start Last Admin Trade Name Rudolph PRN Reason Stop Dose Admin Sodium Chloride 1,000 mls @ 75 mls/hr 09/27/20 18:45 09/27/20 18:45 Normal Saline IV 75 mls/hr ASDIRECTED ANGEL Administration Discontinued Medications Generic Name Dose Route Start Last Admin Trade Name Rudolph PRN Reason Stop Dose Admin Dexamethasone 8 mg 09/27/20 20:20 09/27/20 20:41 Decadron IVPUSH 09/27/20 20:21 8 mg ONETIME ONE Administration Hydromorphone HCl 0.25 mg 09/27/20 20:21 09/27/20 20:42 Dilaudid IVPUSH 09/27/20 20:22 0.25 mg ONETIME ONE Administration Potassium Chloride 10 meq/ 100 mls @ 50 mls/hr 09/27/20 18:35 09/27/20 18:40 Premix IV 09/27/20 20:34 50 mls/hr ASDIRECTED ONE Administration Sodium Chloride Confirm 09/27/20 18:42 09/27/20 18:47 Normal Saline Administered 09/27/20 18:43 Not Given Dose 1,000 mls @ as directed .ROUTE .STK-MED ONE - Re-Assessments/Exams Free Text/Narrative Re-Assessment/Exam: 09/27/20 20:01 Urinalysis shows 1+ proteinuria 2+ ketones. There is no signs of urinary tract infection. CRP is markedly elevated at 14.3. Suggesting underlying infective process. Plan portable chest x-ray to be done. This patient has been assumed from Dr. Calloway at change of shift. A urinalysis was performed by catheterized specimen. I am going to look for a another source of infection due to markedly elevated CRP at 14.3. Serum LDH, D-dimer, serum ferritin will be ordered and a portable chest x-ray. On examination the patient has exquisite tenderness throughout all of the paraspinal musculature adjacent to the left side of her neck. She states intermittently it will generate a severe sharp stabbing lancinating pain that travels into her left upper shoulder in the distribution of the superior belly of the trapezius muscle. She is afraid to look forwards and upwards at times due to setting off the pain. I am going to her 0.25 mg of Dilaudid IV for pain relief with dexamethasone 8 mg IV for relief of acute inflammation. 09/27/20 20:21 portable chest x-ray reveals mildly hyperinflated lung juárez bilaterally. There is absence of the left breast. Cardiac silhouette is upper limits of normal. Tortuous thoracic aorta appreciated. Mediastinum normal. No pleural effusion no pneumothorax. She has multiple screws and plates in her proximal left humerus. 09/27/20 20:39 D-dimer has returned and is elevated at 1.43 presumably due to an under lying inflammatory process or cancer. Less likely would be COVID-19 illness. 09/27/20 21:24 Further lab test revealed a serum ferritin slightly elevated at 331 with normal being up to 52. LDH is normal at 209. Patient has no other risk factors or signs or symptoms of COVID-19 illness and at this time refuses Covid screening. I am therefore going to discharge her to home on Slow-K 20 mEq tablet once daily to improve her potassium and prednisone 20 mg in the a.m. and p.m. for 5 days and then once in the morning only for another 5 days to relieve pain and inflammation of her cervical spine. She will continue to use Tylenol on a as needed basis for pain relief. The other thing we discussed was discontinuing imipramine due to its very severe side effect profile with anticholinergic side effects for elderly folks. She cannot remember why she is taking it it is probably placed to try and help her sleep at night. She states she sleeps great. Therefore imipramine will be discontinued at this time at least on a trial basis for 2 to 3 weeks and it could always be reinstated if she requires it. Insert is identified with an elevated D-dimer and elevated CRP that she may have metastatic cancer. Departure - Departure Time of Disposition: 21:24 Reason for Transfer *Q: Other Condition: Fair Sepsis Event Note (ED) - Focused Exam Vital Signs: Vital Signs Temp Pulse Resp BP Pulse Ox 09/27/20 17:22 36.8 C 82 15 138/85 98 - My Orders Last 24 Hours: My Active Orders 09/27/20 20:02 Chest 1V Frontal [CR] Stat - Assessment/Plan Last 24 Hours: My Active Orders 09/27/20 20:02 Chest 1V Frontal [CR] Stat
[2020-09-27] MEDS ORDERED: Potassium Chloride 10 MEQ in Premix Bag 1 BAG IV ONE (18:35)
[2020-09-27] MEDS ORDERED: Sodium Chloride 0.9% 1,000 ML ONE (18:42)
[2020-09-27] MEDS ORDERED: Sodium Chloride 0.9% 1,000 ML IV SCH (18:45)
[2020-09-27] MEDS ORDERED: Dexamethasone 10 MG/ML SDV IVPUSH ONE (20:20)
[2020-09-27] MEDS ORDERED: HYDROmorphone 0.5 MG/0.5 ML Syringe IVPUSH ONE (20:21)
--- NOTE | 2020-09-28 09:31 | CR ---
Chest: Portable view of the chest was obtained. Comparison: Prior CT study of 06/21/19. Findings: Lungs are slightly hyperinflated presumably due to emphysematous change. Previous left mastectomy is noted with axillary clips being seen within the left side due to axillary lymph node dissection. No acute parenchymal change is seen. Heart size is normal. Slight tortuosity of the thoracic aorta is seen. Previous surgery is noted within the proximal left humerus compatible with healing fracture. No acute osseous finding is appreciated. Impression: 1. Nothing acute is seen on portable chest x-ray. Diagnostic code #2 I agree with preliminary report from [facility], finalized on 09/27/20, 9:32 PM [employer]
--- NOTE | 2020-09-28 09:35 | CT ---
CT cervical spine Technique: Axial sections were obtained above C1 inferiorly through the posterior T2-3 disc. Reconstructed coronal and sagittal images were also obtained. Comparison: Prior MRI cervical spine study of 03/14/14. Findings: Degenerative change is noted between the dens and anterior arch of C1. C3-4: Mild disc space narrowing is seen. Diffuse posterior disc bulge is seen causing minimal central canal stenosis. Left neural foramen is patent. Very minimal right-sided neural foraminal stenosis is seen. C4-5: Moderate right-sided neural foraminal stenosis is seen. Left neural foramen is patent. No central canal stenosis is seen. C5-6: Minimal spondylolisthesis is seen due to degenerative apophyseal change. Severe right-sided and left-sided neural foraminal stenosis. Mild diffuse posterior disc bulge and posterior spurring is seen. Minimal central canal stenosis is noted. C6-7: Moderate disc space narrowing is seen. Moderate left-sided neural foraminal stenosis is noted. Right neural foramen appears patent. No definite central canal stenosis is seen. C7-T1: No central canal stenosis or neural foraminal stenosis is seen. T1-2: No central canal stenosis or neural foraminal stenosis is seen. T2-3: Posterior disc appears maintained. No central canal stenosis or neural foraminal stenosis is seen. Diffuse degenerative apophyseal change is seen throughout the cervical spine. No acute fracture is seen. Impression: 1. Diffuse degenerative change. Multiple levels of neural foraminal stenosis is seen. 2. No acute fracture is appreciated. Diagnostic code #2 I agree with preliminary report from [facility], finalized on 09/27/20, 8:02 PM [employer]
--- NOTE | 2020-09-28 09:36 | CT ---
Head CT Technique: Multiple axial sections through the brain were obtained. Intravenous contrast not utilized. Reconstructed coronal and sagittal images were also obtained. Comparison: Prior head CT study of 10/16/19. Findings: Ventricles along with basal cisterns and sulci over the convexities are prominent. Cystic lesion is seen within the left thalamus. This is believed to cause mass-effect into the left lateral ventricle and is stable from prior study and therefore believed to be incidental. Artifact is noted from prior aneurysm surgery within the right suprasellar cistern. Mild areas of diminished density are scattered within the periventricular and cerebellar white matter which are chronic. There is minimal midline shift being seen which is stable. No acute parenchymal hemorrhage is seen. No additional midline shift or mass-effect is seen. Bone window settings were reviewed. No acute calvarial finding is seen. Mild areas of mucosal thickening are seen within the ethmoid sinuses. Mastoid sinuses are clear. Impression: 1. Cystic lesion as noted above which is stable. 2. Previous aneurysm surgery. 3. Senescent change. Nothing acute is appreciated. Diagnostic code #2 I agree with preliminary report from [facility], finalized on 09/27/20, 7:56 PM ARCHITECT INTERN
== END 2020-09-27 21:55 | disposition home or self-care (01) ==
LOC: JD.ED 17:10
DX: M47.812 Spondylosis without myelopathy or radiculopathy, cervical region (principal); I10 Essential (primary) hypertension; E78.00 Pure hypercholesterolemia, unspecified; J44.9 Chronic obstructive pulmonary disease, unspecified; F41.9 Anxiety disorder, unspecified; G20 Parkinson's disease; Z79.02 Long term (current) use of antithrombotics/antiplatelets; Z79.82 Long term (current) use of aspirin; Z90.49 Acquired absence of other specified parts of digestive tract; Z79.899 Other long term (current) drug therapy
CPT/HCPCS: 36415; 70450; 71045; 72125; 80053; 81001; 82728; 83615; 83735; 85025; 85379; 86140; 93005; 96365; 96366; 96375; 99284; J1100; J1170; J3480; J7030; 93010

== ENCOUNTER 2020-10-14 18:59 | Inpatient (IN) | payer MEDICARE, BC ==
[2020-10-14] MEDS ORDERED: Sodium Chloride 0.9% 1,000 ML IV SCH (20:15)
--- NOTE | 2020-10-14 20:20 | EDM.PDOC ---
ED HPI GENERAL MEDICAL PROBLEM - General Chief Complaint: Fever Stated Complaint: [facility] Time Seen by Provider: 10/14/20 19:16 Source of Information: Reports: Patient History Limitations: Reports: No Limitations - History of Present Illness INITIAL COMMENTS - FREE TEXT/NARRATIVE: Mrs. Santana is a most pleasant 80-year-old woman who is now brought to the ED from [facility] assisted living by EMS after she skipped dinner, then was found to have a fever of 102.9 degrees. She was found to be generally weak, having difficulty drinking out of a straw. The patient states that she is not sure exactly when she started feeling weak, but it was probably sometime after noon today. She denies associated chills, cough, dyspnea, chest pain, palpitations, nausea, vomiting, constipation, diarrhea, abdominal pain, or urinary symptoms. She denies prior similar symptoms. The patient acknowledges that she fell while trying to get into bed this past weekend, bruising her left hip. She denies any other injuries. Here in the ED, the patient is found to have a fever of 101.1 degrees, otherwise, she is hemodynamically stable, with an oxygen saturation of 95% on room air. The patient was diagnosed with COVID-19 in August 2020. Otherwise, prior to noon today, the patient denies having a recent fever, chills, sore throat, ear pain, nasal or sinus congestion, cough, dyspnea, chest pain, palpitations, nausea, vomiting, constipation, diarrhea, abdominal pain, urinary symptoms, recent weight gain or weight loss, recent bloody bowel movements or black bowel movements, recent joint aches, headaches, or rashes. The patient's PCP is Dr. Eliot Foley. Her Oncologist is Dr. Domenico Simental. She does not recall the name of her Neurologist. She already received an influenza vaccine this season. - Related Data Allergies Allergy/AdvReac Type Severity Reaction Status Date / Time No Known Allergies Allergy Verified 10/14/20 19:01 Home Meds: Home Meds Gabapentin 300 mg PO BEDTIME 06/01/16 [History] Clopidogrel Bisulfate [Clopidogrel] 75 mg PO DAILY 01/04/19 [History] Rosuvastatin [Crestor] 20 mg PO DAILY 01/04/19 [History] Sertraline [Zoloft] 100 mg PO DAILY 01/04/19 [History] Ascorbic Acid/Vitamin E/Biotin [Hair Skin Nails-Biotin Gummies] 1 tab PO TID 10/16/19 [History] Aspirin 81 mg PO BEDTIME 10/16/19 [History] Calcium Carbonate [Calcium] 600 mg PO BID 10/16/19 [History] Dextrin [Fiber] 1 pack PO BID 10/16/19 [History] Fish Oil/Borage/Flax/Om3,6,9 1 [Nash 3-6-9 Complex Softgel] 1 tab PO DAILY 10/16/19 [History] L.acidoph,Paracasei, B.lactis [Probiotic] 1 cap PO BID 10/16/19 [History] Metoprolol Succinate [Toprol Xl] 50 mg PO DAILY 10/16/19 [History] Multivitamin [Multivitamins] 1 cap PO DAILY 10/16/19 [History] Potassium Chloride 20 meq PO DAILY #30 tablet.er 09/27/20 [Rx] Acetaminophen [Pain Relief] 650 mg PO ASDIRECTED PRN 10/14/20 [History] Clotrimazole [Clotrimazole 1%] 1 dose TOP DAILY 10/14/20 [History] Imipramine HCl [Imipramine] 25 mg PO QPM PRN 10/14/20 [History] Lactulose [Generlac] 5 ml PO DAILY 10/14/20 [History] Lidocaine [Aspercreme Lidocaine] 1 applic TOP DAILY PRN 10/14/20 [History] Magnesium Oxide 200 mg PO DAILY 10/14/20 [History] Past Medical History HEENT History: Reports: Impaired Vision (wears glasses) Cardiovascular History: Reports: High Cholesterol, Hypertension Respiratory History: Reports: COPD (suspected, not tested) Genitourinary History: Reports: Urinary Incontinence Musculoskeletal History: Reports: Arthritis, Osteoporosis Neurological History: Reports: Cerebral Aneurysms (subarachnoid hemorrhage -> s/p clipping), CVA (right hemiparesis), Other (See Below) (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)) Psychiatric History: Reports: Anxiety Oncologic (Cancer) History: Reports: Breast (left, s/p mastectomy), Lung (dx'd Aug 2020, receiving RTx) - Infectious Disease History Infectious Disease History: Reports: Chicken Pox, Measles, Mumps, Novel Coronavirus (dx'd Aug 2020) - Past Surgical History Head Surgeries/Procedures: Reports: Craniotomy (Cerebral aneurysm clipping) HEENT Surgical History: Reports: Cataract Surgery (bilateral), Naso-Sinus Surgery GI Surgical History: Reports: Appendectomy, Cholecystectomy (around 2009), Colonoscopy Musculoskeletal Surgical History: Reports: Shoulder Surgery (bilateral, open) Oncologic Surgical History: Reports: Mastectomy (left) Social & Family History - Tobacco Use Tobacco Use Status *Q: Never Tobacco User Years of Tobacco use: 35 Packs/Tins Daily: 3 Month/Year Tobacco Last Used: Quit 1994 - Caffeine Use Caffeine Use: Reports: None - Alcohol Use Alcohol Use History: No - Recreational Drug Use Recreational Drug Use: No - Living Situation & Occupation Living situation: Reports: , Assisted Living ([facility]) Occupation: Retired ED ROS GENERAL - Review of Systems Review Of Systems: Comprehensive ROS is negative, except as noted in HPI. ED EXAM, GENERAL - Physical Exam Exam: See Below Exam Limited By: No Limitations General Appearance: Alert, WD/WN, No Apparent Distress Eye Exam: Bilateral Eye: EOMI, Normal Inspection (s/p cataract surgery) Ears: Normal External Exam, Hearing Grossly Normal Nose: Normal Inspection Throat/Mouth: Normal Voice, No Airway Compromise, Other (Wearing a mask) Head: Atraumatic, Normocephalic Neck: Normal Inspection, Full Range of Motion Respiratory/Chest: No Respiratory Distress, Lungs Clear, Normal Breath Sounds, No Accessory Muscle Use Cardiovascular: Normal Peripheral Pulses, No Edema, No Gallop, No JVD, No Murmur, No Rub, Other (Regularly irregular pulse) Peripheral Pulses: 3+: Radial (L), Radial (R) GI/Abdominal: Normal Bowel Sounds, Soft, Non-Tender, No Organomegaly, No Distention, No Abnormal Bruit, No Mass Back Exam: Normal Inspection, Full Range of Motion, NT Extremities: Normal Inspection, Normal Range of Motion, No Pedal Edema, Normal Capillary Refill Neurological: Alert, Oriented, Normal Cognition, Other (Left upper extremity spastic paralysis) Psychiatric: Normal Affect Skin Exam: Warm (tactile fever), Dry, Intact, Normal Color, No Rash #1 Interpretation EKG Date: 10/14/20 Time: 20:31 Rhythm: NSR Rate (Beats/Min): 99 [place]: Normal P-Wave: Variable (NSR with paired PACs) QRS: Normal ST-T: Normal QT: Prolonged (QTc 501 ms) Comparison: Change From Previous EKG (No PACs, QTc WNLs on 09/27/2020) Course - Vital Signs Last Recorded V/S: Last Vital Signs Temp 38.4 C H 10/14/20 19:01 Pulse 93 10/14/20 19:01 Resp 13 10/14/20 19:01 BP 129/75 10/14/20 19:01 Pulse Ox 95 10/14/20 19:01 - Orders/Labs/Meds Orders: Active Orders 24 hr Category Date Time Status EKG Documentation Completion [RC] STAT Care 10/14/20 20:13 Active Ang Chest [CT] Stat Exams 10/14/20 21:28 Taken Chest 1V Frontal [CR] Stat Exams 10/14/20 20:12 Taken CULTURE BLOOD [BC] Stat Lab 10/14/20 20:40 Received CULTURE BLOOD [BC] Stat Lab 10/14/20 20:46 Received Sodium Chloride 0.9% [Normal Saline] 1,000 ml Med 10/14/20 20:15 Active IV ASDIRECTED Blood Culture x2 Reflex Set [OM.PC] Stat Oth 10/14/20 20:14 Ordered Medication Orders Sodium Chloride (Normal Saline) 1,000 mls @ 100 mls/hr IV ASDIRECTED ANGEL Last Admin: 10/14/20 20:41 Dose: 100 mls/hr Documented by: RAFITA Labs: Laboratory Tests 10/14/20 10/14/20 10/14/20 Range/Units 20:40 20:40 20:40 WBC 9.96 (3.98-10.04) K/mm3 RBC 4.23 (3.98-5.22) M/mm3 Hgb 11.2 (11.2-15.7) gm/dl Hct 35.2 (34.1-44.9) % MCV 83.2 (79.4-94.8) fl MCH 26.5 (25.6-32.2) pg MCHC 31.8 L (32.2-35.5) g/dl RDW Std Deviation 43.5 (36.4-46.3) fL Plt Count 148 L (182-369) K/mm3 MPV 10.4 (9.4-12.3) fl Neutrophils % (Manual) 93 H (40-60) % Band Neutrophils % 0 (0-10) % Lymphocytes % (Manual) 5 L (20-40) % Atypical Lymphs % 0 % Monocytes % (Manual) 2 (2-10) % Eosinophils % (Manual) 0 L (0.7-5.8) % Basophils % (Manual) 0 L (0.1-1.2) Platelet Estimate Adequate RBC Morph Comment Normal D-Dimer, Quantitative 2.03 H (0.19-0.50) mg/L Sodium 137 (136-145) mEq/L Potassium 4.0 (3.5-5.1) mEq/L Chloride 102 (98-107) mEq/L Carbon Dioxide 25 (21-32) mEq/L Anion Gap 14.0 (5-15) BUN 20 H (7-18) mg/dL Creatinine 0.9 (0.55-1.02) mg/dL Est Cr Clr Drug Dosing 43.77 mL/min Estimated GFR (MDRD) > 60 (>60) mL/min BUN/Creatinine Ratio 22.2 H (14-18) Glucose 107 (83-115) mg/dL Lactic Acid (0.4-2.0) mmol/L Calcium 9.1 (8.5-10.1) mg/dL Magnesium 2.0 (1.8-2.4) mg/dl Total Bilirubin 0.5 (0.2-1.0) mg/dL AST 34 (15-37) U/L ALT 27 (14-59) U/L Alkaline Phosphatase 73 (46-116) U/L Total Protein 7.9 (6.4-8.2) g/dl Albumin 3.4 (3.4-5.0) g/dl Globulin 4.5 gm/dL Albumin/Globulin Ratio 0.8 L (1-2) Urine Color (Yellow) Urine Appearance (Clear) Urine pH (5.0-8.0) Ur Specific [place] (1.005-1.030) Urine Protein (Negative) Urine Glucose (UA) (Negative) Urine Ketones (Negative) Urine Occult Blood (Negative) Urine Nitrite (Negative) Urine Bilirubin (Negative) Urine Urobilinogen (0.2-1.0) Ur Leukocyte Esterase (Negative) Urine RBC (0-5) /hpf Urine WBC (0-5) /hpf Ur Squamous Epith Cells (0-5) /hpf Urine Bacteria (FEW) /hpf Urine Mucus (FEW) /hpf Influenza Type A RNA (NEGATIVE) Influenza Type B RNA (NEGATIVE) SARS-CoV-2 RNA (DONNY) (NEGATIVE) 10/14/20 10/14/20 10/14/20 Range/Units 20:40 20:45 20:58 WBC (3.98-10.04) K/mm3 RBC (3.98-5.22) M/mm3 Hgb (11.2-15.7) gm/dl Hct (34.1-44.9) % MCV (79.4-94.8) fl MCH (25.6-32.2) pg MCHC (32.2-35.5) g/dl RDW Std Deviation (36.4-46.3) fL Plt Count (182-369) K/mm3 MPV (9.4-12.3) fl Neutrophils % (Manual) (40-60) % Band Neutrophils % (0-10) % Lymphocytes % (Manual) (20-40) % Atypical Lymphs % % Monocytes % (Manual) (2-10) % Eosinophils % (Manual) (0.7-5.8) % Basophils % (Manual) (0.1-1.2) Platelet Estimate RBC Morph Comment D-Dimer, Quantitative (0.19-0.50) mg/L Sodium (136-145) mEq/L Potassium (3.5-5.1) mEq/L Chloride (98-107) mEq/L Carbon Dioxide (21-32) mEq/L Anion Gap (5-15) BUN (7-18) mg/dL Creatinine (0.55-1.02) mg/dL Est Cr Clr Drug Dosing mL/min Estimated GFR (MDRD) (>60) mL/min BUN/Creatinine Ratio (14-18) Glucose (83-115) mg/dL Lactic Acid 1.0 (0.4-2.0) mmol/L Calcium (8.5-10.1) mg/dL Magnesium (1.8-2.4) mg/dl Total Bilirubin (0.2-1.0) mg/dL AST (15-37) U/L ALT (14-59) U/L Alkaline Phosphatase (46-116) U/L Total Protein (6.4-8.2) g/dl Albumin (3.4-5.0) g/dl Globulin gm/dL Albumin/Globulin Ratio (1-2) Urine Color Yellow (Yellow) Urine Appearance Clear (Clear) Urine pH 7.0 (5.0-8.0) Ur Specific [place] 1.020 (1.005-1.030) Urine Protein 1+ H (Negative) Urine Glucose (UA) Negative (Negative) Urine Ketones 1+ H (Negative) Urine Occult Blood Negative (Negative) Urine Nitrite Negative (Negative) Urine Bilirubin Negative (Negative) Urine Urobilinogen 0.2 (0.2-1.0) Ur Leukocyte Esterase Negative (Negative) Urine RBC 0-5 (0-5) /hpf Urine WBC 0-5 (0-5) /hpf Ur Squamous Epith Cells Not seen (0-5) /hpf Urine Bacteria Occasional (FEW) /hpf Urine Mucus Not seen (FEW) /hpf Influenza Type A RNA Negative (NEGATIVE) Influenza Type B RNA Negative (NEGATIVE) SARS-CoV-2 RNA (DONNY) Negative (NEGATIVE) Meds: Medications Generic Name Dose Route Start Last Admin Trade Name Freq PRN Reason Stop Dose Admin Sodium Chloride 1,000 mls @ 100 mls/hr 10/14/20 20:15 10/14/20 20:41 Normal Saline IV 100 mls/hr ASDIRECTED [facility] Administration - Re-Assessments/Exams Free Text/Narrative Re-Assessment/Exam: 10/14/20 20:15 As above, the patient has a fever and generalized weakness, but no other complaints. I have ordered a work-up that includes several blood tests, 2 sets of blood cultures, a urinalysis by quick catheter, and influenza/COVID-19 swab, and a portable chest x-ray. Because she has a regularly irregular pulse, I ordered an ECG. In the meantime, the patient will be given gentle IV fluid. 10/14/20 21:28 The patient's CBC is remarkable for mild thrombocytopenia of 140,000, and is otherwise unremarkable. Her CMP is remarkable for a BUN slightly elevated 20, with a Cr normal at 0.9, and the remainder of her CMP being unremarkable. Her magnesium level is within normal limits at 2.0. Her lactic acid level is within normal limits at 1.0. Her D-dimer is elevated at 2.03. Based on the above, I have ordered a CT angiogram of the chest to evaluate for PE. 10/14/20 22:23 Portable chest radiograph reviewed. The cardiac silhouette is within normal limits. No pulmonary vascular congestion. No pleural effusions seen on this AP view. No focal infiltrate. No pneumothorax. There is hyperinflation and bilateral diaphragmatic flattening, consistent with COPD. Status post left mastectomy. Mild thoracic scoliosis noted. Status post proximal left humerus ORIF. Formal read per the Radiologist pending. The patient's urinalysis is unremarkable. Her influenza swab returned negative. Her swab for the SARS-CoV-2 virus returned negative. 10/14/20 22:56 CT angiogram of the chest is read by [facility] as: 1. No evidence of pulmonary embolism. 2. Mucous plugging with patchy ground-glass and tree-in-bud opacities in the right lower lobe suspicious for infectious pneumonia. Based on the above, I will start the patient on a 5-day course of oral Augmentin and oral azithromycin. Unfortunately, the patient is too weak to go home, therefore I will place her into observation. 10/14/20 23:09 The above plan was discussed with the patient, who is agreeable. Departure - Departure Time of Disposition: 23:09 Disposition: Refer to Observation Condition: Good Clinical Impression: Right lower lobe pneumonia - Discharge Information *PRESCRIPTION DRUG MONITORING PROGRAM REVIEWED*: Not Applicable *COPY OF PRESCRIPTION DRUG MONITORING REPORT IN PATIENT FRANCISCA: Not Applicable Referrals: Eliot Samuels MD [Primary Care Provider] - Domenico Simental MD [Ordering Only Provider] - Forms: ED Department Discharge Sepsis Event Note (ED) - Evaluation Sepsis Screening Result: No Definite Risk - Focused Exam Vital Signs: Vital Signs Temp Pulse Resp BP Pulse Ox 10/14/20 19:01 38.4 C H 93 13 129/75 95 - My Orders Last 24 Hours: My Active Orders 10/14/20 20:12 Chest 1V Frontal [CR] Stat 10/14/20 20:13 EKG Documentation Completion [RC] STAT 10/14/20 20:14 Blood Culture x2 Reflex Set [OM.PC] Stat 10/14/20 20:15 Sodium Chloride 0.9% [Normal Saline] 1,000 ml IV ASDIRECTED 10/14/20 20:40 CULTURE BLOOD [BC] Stat 10/14/20 20:46 CULTURE BLOOD [BC] Stat 10/14/20 21:28 Ang Chest [CT] Stat - Assessment/Plan Last 24 Hours: My Active Orders 10/14/20 20:12 Chest 1V Frontal [CR] Stat 10/14/20 20:13 EKG Documentation Completion [RC] STAT 10/14/20 20:14 Blood Culture x2 Reflex Set [OM.PC] Stat 10/14/20 20:15 Sodium Chloride 0.9% [Normal Saline] 1,000 ml IV ASDIRECTED 10/14/20 20:40 CULTURE BLOOD [BC] Stat 10/14/20 20:46 CULTURE BLOOD [BC] Stat 10/14/20 21:28 Ang Chest [CT] Stat
[2020-10-14 21:47] LABS: CORONAVIRUS COVID-19 NAA NEGATIVE (NEGATIVE)
[2020-10-14] MEDS ORDERED: Amoxicillin/Clavulanate K 875-125 MG Tab PO STA (22:59)
[2020-10-14] MEDS ORDERED: Azithromycin 250 MG Tab PO STA (23:00)
[2020-10-14] MEDS ORDERED: Amoxicillin/Clavulanate K 600-42.9 MG/5 ML Susp 125 ML Bottle PO STA (23:04)
--- NOTE | 2020-10-15 08:09 | PCM.HP.2 ---
H&P History of Present Illness - General Date of Service: 10/15/20 Admit Problem/Dx: Admission Diagnosis/Problem Admission Diagnosis/Problem Pneumonia Source of Information: Patient, Old Records, Provider, RN, RN Notes Reviewed History Limitations: Reports: No Limitations - History of Present Illness Initial Comments - Free Text/Narative: This is a 80-year-old female who resides at [facility] who presents to our ED via [facility] with fever of 102.9 and weakness. She denies any associated chills, cough, dyspnea, chest pain, palpitations, nausea, vomiting, constipation, diarrhea, levi pain, urinary symptoms, or prior similar symptoms. She reports that her weakness has been gradually increasing and she was noted to fall attempting to get into bed over the weekend injuring her left hip. In the ED she is found to have a temp of 101.1 degrees but she has oxygen saturations 95% on room air. She was diagnosed with COVID-19 in August 2020 and reports she was feeling pretty good up until the day she came to the emergency room. In the ED twelve-lead EKG is obtained showing a sinus rhythm at 99 bpm with pairs of PACs and prolonged QTC. This is a change from earlier twelve-lead obtained on 09/27/2020. Labs were obtained with a WBC of 9.96. Hemoglobin 11.2. She is normocytic. Platelets are low at 140,000. Neutrophils are elevated at 93%. There is no bandemia. D-dimer is elevated 2.03. Sodium is 137. Potassium 4.0. Chloride is 102. Carbon oxide 25. Anion gap is 14.0. BUN is 20. Creatinine 0.9. GFR is greater than 60. Calcium is 8.1. Magnesium is 2.0. Bilirubin 0.5. AST 34, ALT 27, alkaline phosphatase 73. Albumin is 3.4. Lactic acid is 1.0. UA is obtained and is negative however 1+ ketones, and occasional bacteria are noted. Influenza and SARS-CoV-2 RNA test are all negative. Chest x-rays obtained and shows slight nodularity in right lung base. Given elevated D-dimer CTA is obtained and interpreted by Dr. Lim as 1. No findings of pulmonary embolism. 2. 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 3. Slightly prominent subcarinal lymph nodes are seen as described above. These are most likely reactive. 4. Emphysematous change within both lungs. 5. Patchy area of increased density within the right lung base likely related to early area of pneumonia. 6. Other findings as noted above which are nonacute. The patient is started on a 5-day course of p.o. Augmentin and azithromycin. First dose is given in the ED. Plan was to discharge patient home however becomes apparent the patient is too weak to go home. She is therefore admitted to the floor observation status for management of her pneumonia and generalized weakness. 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 She is a former smoker. Her PCP is Dr. Foley. Her oncologist is Dr. Simental. She is a full code. - Related Data Allergies/Adverse Reactions: Allergies Allergy/AdvReac Type Severity Reaction Status Date / Time No Known Allergies Allergy Verified 10/14/20 19:01 Home Medications: Home Meds Gabapentin 300 mg PO BEDTIME 06/01/16 [History] Clopidogrel Bisulfate [Clopidogrel] 75 mg PO DAILY 01/04/19 [History] Rosuvastatin [Crestor] 20 mg PO DAILY 01/04/19 [History] Sertraline [Zoloft] 100 mg PO DAILY 01/04/19 [History] Aspirin 81 mg PO BEDTIME 10/16/19 [History] Fish Oil/Borage/Flax/Om3,6,9 1 [[place] 3-6-9 Complex Softgel] 1 tab PO DAILY 10/16/19 [History] Metoprolol Succinate [Toprol Xl] 50 mg PO DAILY 10/16/19 [History] Multivitamin [Multivitamins] 1 cap PO DAILY 10/16/19 [History] Potassium Chloride 20 meq PO DAILY #30 tablet.er 09/27/20 [Rx] Acetaminophen [Pain Relief] 650 mg PO ASDIRECTED PRN 10/14/20 [History] Clotrimazole [Clotrimazole 1%] 1 dose TOP BID 10/14/20 [History] Imipramine HCl [Imipramine] 25 mg PO QPM 10/14/20 [History] Lactulose [Generlac] 5 ml PO DAILY 10/14/20 [History] Lidocaine [Aspercreme Lidocaine] 1 applic TOP DAILY PRN 10/14/20 [History] Magnesium Oxide 400 mg PO DAILY 10/14/20 [History] Anastrozole [Arimidex] 1 mg PO DAILY 10/15/20 [History] Calcium Carbonate [Tums] 400 mg PO 6XDAY PRN MDD 15 tabs 10/15/20 [History] Cholecalciferol (Vitamin D3) [Vitamin D3] 2,000 unit PO DAILY 10/15/20 [History] calcium polycarbophiL [Fiber Tabs] 1,250 mg PO BID 10/15/20 [History] Past Medical History HEENT History: Reports: Impaired Vision Other HEENT History: wears glasses Cardiovascular History: Reports: High Cholesterol, Hypertension Respiratory History: Reports: COPD Gastrointestinal History: Reports: None Genitourinary History: Reports: Urinary Incontinence [employer] History: Reports: Other OB/BYN History: Musculoskeletal History: Reports: Arthritis, Osteoporosis Neurological History: Reports: Cerebral Aneurysms, CVA, Other (See Below) Other Neuro History: aneursym Psychiatric History: Reports: Anxiety Endocrine/Metabolic History: Reports: None Oncologic (Cancer) History: Reports: Breast, Lung - Infectious Disease History Infectious Disease History: Reports: Chicken Pox, Measles, Mumps, Novel Coronavirus - Past Surgical History Head Surgeries/Procedures: Reports: Craniotomy HEENT Surgical History: Reports: Cataract Surgery, Naso-Sinus Surgery Cardiovascular Surgical History: Reports: None Respiratory Surgical History: Reports: None GI Surgical History: Reports: Appendectomy, Cholecystectomy, Colonoscopy Female Surgical History: Reports: None Neurological Surgical History: Reports: Other (See Below) Other Neurological Surgeries/Procedures: coil Musculoskeletal Surgical History: Reports: Shoulder Surgery Other Musculoskeletal Surgeries/Procedures:: left arm rods Oncologic Surgical History: Reports: Mastectomy Other Oncologic Surgeries/Procedures: LEFT Social & Family History - Family History Family Medical History: No Pertinent Family History - Tobacco Use Tobacco Use Status *Q: Former Tobacco User Years of Tobacco use: 20 Packs/Tins Daily: 3 Used Tobacco, but Quit: Yes Month/Year Tobacco Last Used: 1963 Second Hand Smoke Exposure: No - Caffeine Use Caffeine Use: Reports: None - Recreational Drug Use Recreational Drug Use: No - Living Situation & Occupation Living situation: Reports: , [facility] Occupation: Retired H&P Review of Systems - Review of Systems: Review Of Systems: See Below General: Reports: No Symptoms, Fever, Malaise, Weakness, Fatigue. Denies: Chills HEENT: Reports: No Symptoms. Denies: Headaches, Sore Throat Pulmonary: Reports: No Symptoms. Denies: Shortness of Breath, Wheezing, Pleuritic Chest Pain, Cough, Sputum Cardiovascular: Reports: No Symptoms. Denies: Chest Pain, Palpitations, Edema Gastrointestinal: Reports: No Symptoms. Denies: Abdominal Pain, Constipation, Diarrhea, Nausea, Vomiting Genitourinary: Reports: No Symptoms. Denies: Pain Musculoskeletal: Reports: No Symptoms Skin: Reports: No Symptoms. Denies: Cyanosis Psychiatric: Reports: No Symptoms. Denies: Confusion Neurological: Reports: Pre-Existing Deficit (LUE paralysis ), Difficulty W alking, Weakness, Gait Disturbance. Denies: Confusion, Dizziness, Headache, Numbness, Seizure, Syncope, Tingling, Trouble Speaking Hematologic/Lymphatic: Reports: No Symptoms Immunologic: Reports: No Symptoms Exam - Exam Exam: See Below - Vital Signs Vital Signs: Last Vital Signs Temp 98.8 F 10/15/20 03:17 Pulse 88 10/15/20 03:17 Resp 16 10/15/20 03:17 BP 157/85 H 10/15/20 03:17 Pulse Ox 98 10/15/20 03:17 Weight: 124 lb - Exam Quality Assessment: DVT Prophylaxis. No: Supplemental Oxygen General: Alert, Oriented, Cooperative. No: Mild Distress HEENT: Conjunctiva Clear, EACs Clear, Mucosa Moist & [place], Posterior Pharynx Clear Neck: Supple, Trachea Midline Lungs: Clear to Auscultation, Normal Respiratory Effort Cardiovascular: Regular Rate, Regular Rhythm GI/Abdominal Exam: Normal Bowel Sounds, Soft, Non-Tender, No Distention (Female) Exam: Deferred Rectal (Female) Exam: Deferred Back Exam: Normal Inspection, Full Range of Motion Extremities: Normal Inspection, Non-Tender, No Pedal Edema, Normal Capillary Refill, Limited Range of Motion (LUE paralysis ) Skin: Warm, Dry, Intact Neurological: Cranial Nerves Intact (Grossly ) - Patient Data Lab Results Last 24 hrs: Laboratory Results - last 24 hr 10/14/20 10/14/20 10/14/20 Range/Units 20:40 20:40 20:40 WBC 9.96 (3.98-10.04) K/mm3 RBC 4.23 (3.98-5.22) M/mm3 Hgb 11.2 (11.2-15.7) gm/dl Hct 35.2 (34.1-44.9) % MCV 83.2 (79.4-94.8) fl MCH 26.5 (25.6-32.2) pg MCHC 31.8 L (32.2-35.5) g/dl RDW Std Deviation 43.5 (36.4-46.3) fL Plt Count 148 L (182-369) K/mm3 MPV 10.4 (9.4-12.3) fl Neutrophils % (Manual) 93 H (40-60) % Band Neutrophils % 0 (0-10) % Lymphocytes % (Manual) 5 L (20-40) % Atypical Lymphs % 0 % Monocytes % (Manual) 2 (2-10) % Eosinophils % (Manual) 0 L (0.7-5.8) % Basophils % (Manual) 0 L (0.1-1.2) Platelet Estimate Adequate RBC Morph Comment Normal D-Dimer, Quantitative 2.03 H (0.19-0.50) mg/L Sodium 137 (136-145) mEq/L Potassium 4.0 (3.5-5.1) mEq/L Chloride 102 (98-107) mEq/L Carbon Dioxide 25 (21-32) mEq/L Anion Gap 14.0 (5-15) BUN 20 H (7-18) mg/dL Creatinine 0.9 (0.55-1.02) mg/dL Est Cr Clr Drug Dosing 43.77 mL/min Estimated GFR (MDRD) > 60 (>60) mL/min BUN/Creatinine Ratio 22.2 H (14-18) Glucose 107 (83-115) mg/dL Lactic Acid (0.4-2.0) mmol/L Calcium 9.1 (8.5-10.1) mg/dL Magnesium 2.0 (1.8-2.4) mg/dl Total Bilirubin 0.5 (0.2-1.0) mg/dL AST 34 (15-37) U/L ALT 27 (14-59) U/L Alkaline Phosphatase 73 (46-116) U/L Total Protein 7.9 (6.4-8.2) g/dl Albumin 3.4 (3.4-5.0) g/dl Globulin 4.5 gm/dL Albumin/Globulin Ratio 0.8 L (1-2) Urine Color (Yellow) Urine Appearance (Clear) Urine pH (5.0-8.0) Ur Specific [place] (1.005-1.030) Urine Protein (Negative) Urine Glucose (UA) (Negative) Urine Ketones (Negative) Urine Occult Blood (Negative) Urine Nitrite (Negative) Urine Bilirubin (Negative) Urine Urobilinogen (0.2-1.0) Ur Leukocyte Esterase (Negative) Urine RBC (0-5) /hpf Urine WBC (0-5) /hpf Ur Squamous Epith Cells (0-5) /hpf Urine Bacteria (FEW) /hpf Urine Mucus (FEW) /hpf Influenza Type A RNA (NEGATIVE) Influenza Type B RNA (NEGATIVE) SARS-CoV-2 RNA (DONNY) (NEGATIVE) MRSA (PCR) 10/14/20 10/14/20 10/14/20 Range/Units 20:40 20:45 20:58 WBC (3.98-10.04) K/mm3 RBC (3.98-5.22) M/mm3 Hgb (11.2-15.7) gm/dl Hct (34.1-44.9) % MCV (79.4-94.8) fl MCH (25.6-32.2) pg MCHC (32.2-35.5) g/dl RDW Std Deviation (36.4-46.3) fL Plt Count (182-369) K/mm3 MPV (9.4-12.3) fl Neutrophils % (Manual) (40-60) % Band Neutrophils % (0-10) % Lymphocytes % (Manual) (20-40) % Atypical Lymphs % % Monocytes % (Manual) (2-10) % Eosinophils % (Manual) (0.7-5.8) % Basophils % (Manual) (0.1-1.2) Platelet Estimate RBC Morph Comment D-Dimer, Quantitative (0.19-0.50) mg/L Sodium (136-145) mEq/L Potassium (3.5-5.1) mEq/L Chloride (98-107) mEq/L Carbon Dioxide (21-32) mEq/L Anion Gap (5-15) BUN (7-18) mg/dL Creatinine (0.55-1.02) mg/dL Est Cr Clr Drug Dosing mL/min Estimated GFR (MDRD) (>60) mL/min BUN/Creatinine Ratio (14-18) Glucose (83-115) mg/dL Lactic Acid 1.0 (0.4-2.0) mmol/L Calcium (8.5-10.1) mg/dL Magnesium (1.8-2.4) mg/dl Total Bilirubin (0.2-1.0) mg/dL AST (15-37) U/L ALT (14-59) U/L Alkaline Phosphatase (46-116) U/L Total Protein (6.4-8.2) g/dl Albumin (3.4-5.0) g/dl Globulin gm/dL Albumin/Globulin Ratio (1-2) Urine Color Yellow (Yellow) Urine Appearance Clear (Clear) Urine pH 7.0 (5.0-8.0) Ur Specific [place] 1.020 (1.005-1.030) Urine Protein 1+ H (Negative) Urine Glucose (UA) Negative (Negative) Urine Ketones 1+ H (Negative) Urine Occult Blood Negative (Negative) Urine Nitrite Negative (Negative) Urine Bilirubin Negative (Negative) Urine Urobilinogen 0.2 (0.2-1.0) Ur Leukocyte Esterase Negative (Negative) Urine RBC 0-5 (0-5) /hpf Urine WBC 0-5 (0-5) /hpf Ur Squamous Epith Cells Not seen (0-5) /hpf Urine Bacteria Occasional (FEW) /hpf Urine Mucus Not seen (FEW) /hpf Influenza Type A RNA Negative (NEGATIVE) Influenza Type B RNA Negative (NEGATIVE) SARS-CoV-2 RNA (DONNY) Negative (NEGATIVE) MRSA (PCR) 10/15/20 Range/Units 00:55 WBC (3.98-10.04) K/mm3 RBC (3.98-5.22) M/mm3 Hgb (11.2-15.7) gm/dl Hct (34.1-44.9) % MCV (79.4-94.8) fl MCH (25.6-32.2) pg MCHC (32.2-35.5) g/dl RDW Std Deviation (36.4-46.3) fL Plt Count (182-369) K/mm3 MPV (9.4-12.3) fl Neutrophils % (Manual) (40-60) % Band Neutrophils % (0-10) % Lymphocytes % (Manual) (20-40) % Atypical Lymphs % % Monocytes % (Manual) (2-10) % Eosinophils % (Manual) (0.7-5.8) % Basophils % (Manual) (0.1-1.2) Platelet Estimate RBC Morph Comment D-Dimer, Quantitative (0.19-0.50) mg/L Sodium (136-145) mEq/L Potassium (3.5-5.1) mEq/L Chloride (98-107) mEq/L Carbon Dioxide (21-32) mEq/L Anion Gap (5-15) BUN (7-18) mg/dL Creatinine (0.55-1.02) mg/dL Est Cr Clr Drug Dosing mL/min Estimated GFR (MDRD) (>60) mL/min BUN/Creatinine Ratio (14-18) Glucose (83-115) mg/dL Lactic Acid (0.4-2.0) mmol/L Calcium (8.5-10.1) mg/dL Magnesium (1.8-2.4) mg/dl Total Bilirubin (0.2-1.0) mg/dL AST (15-37) U/L ALT (14-59) U/L Alkaline Phosphatase (46-116) U/L Total Protein (6.4-8.2) g/dl Albumin (3.4-5.0) g/dl Globulin gm/dL Albumin/Globulin Ratio (1-2) Urine Color (Yellow) Urine Appearance (Clear) Urine pH (5.0-8.0) Ur Specific [place] (1.005-1.030) Urine Protein (Negative) Urine Glucose (UA) (Negative) Urine Ketones (Negative) Urine Occult Blood (Negative) Urine Nitrite (Negative) Urine Bilirubin (Negative) Urine Urobilinogen (0.2-1.0) Ur Leukocyte Esterase (Negative) Urine RBC (0-5) /hpf Urine WBC (0-5) /hpf Ur Squamous Epith Cells (0-5) /hpf Urine Bacteria (FEW) /hpf Urine Mucus (FEW) /hpf Influenza Type A RNA (NEGATIVE) Influenza Type B RNA (NEGATIVE) SARS-CoV-2 RNA (DONNY) (NEGATIVE) MRSA (PCR) Negative Result Diagrams: 12/28/20 20:40 10/14/20 20:40 Sepsis Event Note - Evaluation Sepsis Screening Result: No Definite Risk - Focused Exam Vital Signs: Vital Signs Temp Temp Pulse Pulse Resp BP BP 10/15/20 03:17 98.8 F 88 16 157/85 H 10/15/20 00:29 98.2 F 65 16 135/77 10/15/20 00:05 99.7 F 90 20 138/75 Pulse Ox 10/15/20 03:17 98 10/15/20 00:29 95 10/15/20 00:05 93 L - Problem List (1) Generalized weakness SNOMED Code(s): 70277264 ICD Code: R53.1 - WEAKNESS Status: Acute Priority: High Current Visit: Yes (2) HLD (hyperlipidemia) SNOMED Code(s): 97876285 ICD Code: E78.5 - HYPERLIPIDEMIA, UNSPECIFIED Status: Chronic Priority: Low Current Visit: No Qualifiers: Hyperlipidemia type: unspecified Qualified Code(s): E78.5 - Hyperlipidemia, unspecified (3) HTN (hypertension) SNOMED Code(s): 49037178 ICD Code: I10 - ESSENTIAL (PRIMARY) HYPERTENSION Status: Chronic Priority: Medium Current Visit: No Qualifiers: Hypertension type: unspecified Qualified Code(s): I10 - Essential (primary) hypertension (4) Osteoporosis SNOMED Code(s): 89125660 ICD Code: M81.0 - AGE-RELATED OSTEOPOROSIS W/O CURRENT PATHOLOGICAL FRACTURE Status: Chronic Priority: Low Current Visit: No Qualifiers: Osteoporosis type: unspecified Presence of current pathological fracture: without current pathological fracture Qualified Code(s): M81.0 - Age-related osteoporosis without current pathological fracture (5) Arthritis SNOMED Code(s): 0897190 ICD Code: M19.90 - UNSPECIFIED OSTEOARTHRITIS, UNSPECIFIED SITE Status: Chronic Priority: Low Current Visit: No (6) History of cerebral aneurysm repair SNOMED Code(s): 314118857 ICD Code: Z98.890 - OTHER SPECIFIED POSTPROCEDURAL STATES; Z86.79 - PERSONAL HISTORY OF OTHER DISEASES OF THE CIRCULATORY SYSTEM Status: Chronic Priority: Low Current Visit: No (7) History of CVA with residual deficit SNOMED Code(s): 588920491 ICD Code: I69.30 - UNSPECIFIED SEQUELAE OF CEREBRAL INFARCTION Status: Chronic Priority: Medium Current Visit: No (8) Anxiety SNOMED Code(s): 90397892 ICD Code: F41.9 - ANXIETY DISORDER, UNSPECIFIED Status: Chronic Priority: Low Current Visit: No (9) History of breast cancer SNOMED Code(s): 502920877 ICD Code: Z85.3 - PERSONAL HISTORY OF MALIGNANT NEOPLASM OF BREAST Status: Chronic Priority: Low Current Visit: No (10) History of mastectomy SNOMED Code(s): 277874653, 469607819 ICD Code: Z90.10 - ACQUIRED ABSENCE OF UNSPECIFIED BREAST AND NIPPLE Status: Chronic Priority: Low Current Visit: No (11) Lung cancer SNOMED Code(s): 836122816 ICD Code: C34.90 - MALIGNANT NEOPLASM OF UNSP PART OF UNSP BRONCHUS OR LUNG Status: Chronic Priority: High Current Visit: Yes Qualifiers: Laterality: unspecified laterality Lung location: unspecified part of lung Qualified Code(s): C34.90 - Malignant neoplasm of unspecified part of unspecified bronchus or lung (12) Right lower lobe pneumonia SNOMED Code(s): 603834740 ICD Code: J18.9 - PNEUMONIA, UNSPECIFIED ORGANISM Status: Acute Priority: High Current Visit: Yes Qualifiers: Pneumonia type: due to unspecified organism Qualified Code(s): J18.9 - Pneumonia, unspecified organism Problem List Initiated/Reviewed/Updated: Yes Orders Last 24hrs: Active Orders 24 hr Category Date Time Status Patient Status [ADT] Routine ADT 10/14/20 23:27 Active Up ad Marizol [RC] QSHIFT Care 10/15/20 02:28 Active Regular Diet [DIET] Diet 10/15/20 Breakfast Active Ang Chest [CT] Stat Exams 10/14/20 21:28 Taken Chest 1V Frontal [CR] Stat Exams 10/14/20 20:12 Taken CULTURE BLOOD [BC] Stat Lab 10/14/20 20:40 Received CULTURE BLOOD [BC] Stat Lab 10/14/20 20:46 Received Amoxicillin/Clavulanate K [Augmentin 600-42.9 MG/5 ML Med 10/15/20 09:00 A ctive Susp] 2,000 mg PO BID Azithromycin [Zithromax] Med 10/15/20 21:00 Active 250 mg PO BEDTIME Sodium Chloride 0.9% [Normal Saline] 1,000 ml Med 10/14/20 20:15 Active IV ASDIRECTED Blood Culture x2 Reflex Set [OM.PC] Stat Oth 10/14/20 20:14 Ordered Code Status [Resuscitation Status] Routine Resus Stat 10/15/20 02:26 Ordered Medication Orders Amoxicillin/Clavulanate Potassium (Augmentin 600-42.9 Mg/5 Ml Susp) 2,000 mg PO BID ANGEL Azithromycin (Zithromax) 250 mg PO BEDTIME ANGEL Sodium Chloride (Normal Saline) 1,000 mls @ 100 mls/hr IV ASDIRECTED ANGEL Last Admin: 10/14/20 20:41 Dose: 100 mls/hr Documented by: RAFITA Assessment/Plan Comment:: Assessment - 10/15/2020 (admitted late night on 10/14/2020) * 80yo female presents to ED via [place] [facility] with weakness and fever * Reports fever at home was 10.29, in ED noted to be 101.1 * History of COVID-19 infection diagnosed in August 2020 * Reports no other symptoms, acknowledges fall this past weekend leading to hip bruising * History of suspected COPD, CVA with right hemipareses, Cervicobasilar degeneration, Left breast cancer with mastectomy, Lung Ca diagnosed August 2020 and currently being treated by Dr. Simental. Former smoker * 12-lead EKG in ED showed NSR with Paired PACs. Prolonged QTc. This was a change from prior EKG * CXR shows slight nodularity in right lung base * CTA shows: * 1. No findings of pulmonary embolism. * 2. 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 * 3. Slightly prominent subcarinal lymph nodes are seen as described above. These are most likely reactive. * 4. Emphysematous change within both lungs. * 5. Patchy area of increased density within the right lung base likely related to early area of pneumonia. * 6. Other findings as noted above which are nonacute. * Labs: * WBC 9.96 * Hgb 11.2 * Plt 148 * Neutrophils 93% with no bandemia * D-Dimer 2.03 * Sodium 137 * Potassium 4.0 * Anion gap 14.0 * BUN 20 * Creatinine 0.9 * GFR >60 * Lactic acid 1.0 * Magnesium 2.0 * AST 34, ALT 27, Alk Phos 73 * Albumin 3.4 * Negative Influenza A and B, Negative COVID-19, Negative MRSA * Given Oral Augmentin and azithromycin in ED with plan to discharge home * Noted to be too weak to return home * Admitted to M/S/P observation status for management of PNA and generalized weaknes * Upgraded to inpatient on 10/15/2020 Right lower lobe pneumonia Generalized weakness Lung cancer * IS/Acapella * RT consultation * PRN duonebs * Droplet isolation * Stop Augmentin and start 2gm Rocephin * Continue PO azithromycin * Sputum culture if able * Oxygen as needed * PT/OT evaluation * CM/SW consultation * PRN Robitussin DM * Blood cultures pending * Daily labs * Check TSH, Vitamin D * Mycoplasma, Strep PNA * Droplet precautions HLD (hyperlipidemia) HTN (hypertension) Osteoporosis Arthritis History of cerebral aneurysm repair History of CVA with residual deficit - LUE Anxiety History of breast cancer History of mastectomy * Home medications as ordered * Monitor Code Status: Full code PCP: Dr. Foley Oncologis: Dr. Simental DVT Prophylaxis: Lovenox, Plavix and aspirin Social: Patient is . She lives at [facility]. Disposition: Admitted to floor observation status. Will upgrade to inpatient status given PNA and worsening weakness - Mortality Measure Prognosis:: Good
[2020-10-15] MEDS ORDERED: Ondansetron 4 MG/2 ML SDV IV PRN (08:14)
[2020-10-15] MEDS ORDERED: Acetaminophen 325 MG Tab PO PRN (08:14)
[2020-10-15] MEDS ORDERED: Albuterol/Ipratropium 3.0-0.5 MG/3 ML Neb Soln NEB PRN (08:17)
[2020-10-15] MEDS ORDERED: Lidocaine 4% 1 each Patch TOP PRN (08:17)
--- NOTE | 2020-10-15 08:37 | CT ---
CT chest Technique: Multiple axial sections through the chest are obtained. Intravenous contrast was utilized. Study has been performed as a pulmonary angiogram protocol. Findings: Pulmonary arteries are well opacified. No filling defects are seen to indicate pulmonary embolism. Comparison: Prior CT chest study of 06/21/19. Ascending aorta is mildly ectatic at 3.7 cm. Mild atherosclerotic change is seen. No mediastinal adenopathy is appreciated. No hilar adenopathy is appreciated. There is mild increased subcarinal lymph nodes being seen which measure up to 3.5 cm in size. Overall size is similar to prior exam but AP dimension appears minimally increased. Findings are most likely due to reactive change. Heart shows no pericardial effusion. Prior cholecystectomy is seen. Cyst is noted within the left kidney measuring 3.3 cm in size which extends within the cortex and within the intrapelvic region. Small nodule is noted within the left adrenal gland measuring 1.0 cm which is felt to be incidental. Emphysematous change is present. Small density is noted within the right upper lung believed to be similar to prior study. Patchy areas of increased density are noted within the right lung base suspicious for early pneumonia. Atherosclerotic calcification is partially visualized within the coronary arteries. Impression: 1. No findings of pulmonary embolism. 2. 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 3. Slightly prominent subcarinal lymph nodes are seen as described above. These are most likely reactive. 4. Emphysematous change within both lungs. 5. Patchy area of increased density within the right lung base likely relating to early area of pneumonia. 6. Other findings as noted above which are nonacute. Diagnostic code #3 I agree with preliminary report from [facility], finalized on 10/14/20, 11:37 PM BENEFIT DIRECTOR.
[2020-10-15] MEDS ORDERED: Enoxaparin 40 MG/0.4 ML Syringe SUBCUT SCH (09:00)
[2020-10-15] MEDS ORDERED: CLOTRIMAZOLE TOP SCH (09:00)
[2020-10-15] MEDS ORDERED: Amoxicillin/Clavulanate K 600-42.9 MG/5 ML Susp 125 ML Bottle PO SCH (09:00)
[2020-10-15] MEDS ORDERED: Clopidogrel 75 MG Tab PO SCH (09:00)
[2020-10-15] MEDS ORDERED: Metoprolol Succinate 25 MG Tab.ER PO SCH (09:00)
--- NOTE | 2020-10-15 09:31 | CR ---
Chest: Portable view of the chest was obtained. Comparison: Prior chest x-ray of 09/27/20. Subsequent CT exam performed on the same day. Findings: Heart size is slightly enlarged. Tortuous thoracic aorta is noted. Plate and screws are noted within the proximal left humerus. Slight nodularity is noted within the right lung base. Lungs otherwise are clear. Surgical clips are seen within the left axillary region. Impression: 1. Slight nodularity within the right lung base possibly due to minimal pneumonia as noted on subsequent CT study. 2. Other findings believed to be incidental. Diagnostic code #3
[2020-10-15] MEDS: cefTRIAXone 2 GM in Sodium Chloride 0.9% 100 ML IV SCH (09:41)
[2020-10-15] MEDS: Magnesium Oxide 400 MG Tab PO SCH (09:45)
[2020-10-15] MEDS: Multivitamins,Therapeutic Tab PO SCH (09:45)
[2020-10-15] MEDS: Cholecalciferol (Vitamin D3) 25 MCG Tab PO SCH (09:45)
[2020-10-15] MEDS: Calcium Polycarbophil 625 MG Tab PO SCH ×2 (09:45→20:17)
[2020-10-15 10:08] LABS: VITAMIN D,25-HYDROXY 90.1 ng/ml (30.0-100.0)
[2020-10-15] MEDS: Anastrozole 1 MG Tab PO SCH (11:29)
[2020-10-15] MEDS ORDERED: Metoprolol Succinate 25 MG Tab.ER PO ONE (11:30)
[2020-10-15] MEDS ORDERED: Clopidogrel 75 MG Tab PO ONE (11:30)
[2020-10-15] MEDS ORDERED: guaiFENesin/Dextromethorphan 100-10 MG/5 ML Soln 5 ML Cup PO PRN (14:00)
[2020-10-15] MEDS: Aspirin 81 MG Tab.Chew PO SCH (20:17)
[2020-10-15] MEDS: Gabapentin 300 MG Cap PO SCH (20:18)
[2020-10-15] MEDS ORDERED: Azithromycin 250 MG Tab PO SCH (21:00)
[2020-10-15] MEDS: Azithromycin 250 MG Tab PO SCH (22:24)
[2020-10-16] MEDS: cefTRIAXone 2 GM in Sodium Chloride 0.9% 100 ML IV SCH (08:05)
[2020-10-16] MEDS: Enoxaparin 40 MG/0.4 ML Syringe SUBCUT SCH (08:07)
[2020-10-16] MEDS: Lactulose Soln 10 GM/15 ML 30 ML UD Cup PO SCH (08:08)
[2020-10-16] MEDS: Sertraline 50 MG Tab PO SCH (08:09)
[2020-10-16] MEDS: Metoprolol Succinate 25 MG Tab.ER PO SCH (08:09)
[2020-10-16] MEDS: Multivitamins,Therapeutic Tab PO SCH (08:10)
[2020-10-16] MEDS: Calcium Polycarbophil 625 MG Tab PO SCH ×2 (08:10→20:44)
[2020-10-16] MEDS: Cholecalciferol (Vitamin D3) 25 MCG Tab PO SCH (08:10)
[2020-10-16] MEDS: Potassium Chloride 20 MEQ Tab.ER PO SCH ×2 (08:10→20:44)
[2020-10-16] MEDS: Clopidogrel 75 MG Tab PO SCH (08:10)
[2020-10-16] MEDS: Magnesium Oxide 400 MG Tab PO SCH (08:10)
[2020-10-16] MEDS: Anastrozole 1 MG Tab PO SCH (08:11)
[2020-10-16] MEDS ORDERED: Potassium Chloride 20 MEQ Tab.ER PO SCH (09:00)
--- NOTE | 2020-10-16 10:27 | PCM.PN ---
<David Szymanski - Last Filed: 10/16/20 11:22> - General Info Date of Service: 10/16/20 Admission Dx/Problem (Free Text): Admission Diagnosis/Problem Admission Diagnosis/Problem Pneumonia Functional Status: Reports: Pain Controlled, Tolerating Diet, Ambulating, Urinating, Incentive Spirometry, Other (acapella ). Denies: New Symptoms - Review of Systems General: Reports: Weakness (improved ). Denies: Fever, Fatigue, Malaise, Chills HEENT: Reports: No Symptoms. Denies: Headaches, Sore Throat Pulmonary: Reports: Shortness of Breath (improved ), Cough. Denies: Sputum, Wheezing Cardiovascular: Reports: No Symptoms, Dyspnea on Exertion. Denies: Chest Pain, Palpitations Gastrointestinal: Reports: No Symptoms. Denies: Abdominal Pain, Constipation, Diarrhea, Nausea, Vomiting Genitourinary: Reports: No Symptoms. Denies: Pain Musculoskeletal: Reports: No Symptoms Skin: Reports: No Symptoms. Denies: Cyanosis Neurological: Reports: Pre-Existing Deficit (LUE spastic paralysis ), Difficulty Walking, Weakness. Denies: Confusion, Gait Disturbance Psychiatric: Reports: No Symptoms - Patient Data Vitals - Most Recent: Last Vital Signs Temp 97.9 F 10/16/20 07:49 Pulse 88 10/16/20 08:09 Resp 16 10/16/20 07:49 BP 127/82 10/16/20 08:09 Pulse Ox 95 10/16/20 07:49 Weight - Most Recent: 56.245 kg I&O - Last 24 Hours: Intake & Output 10/15/20 10/16/20 10/16/20 22:59 06:59 14:59 Intake Total 1660 900 Output Total 800 800 Balance 860 100 Lab Results Last 24 Hours: Laboratory Results - last 24 hr 10/16/20 10/16/20 Range/Units 04:15 04:15 WBC 5.28 (3.98-10.04) K/mm3 RBC 3.71 L (3.98-5.22) M/mm3 Hgb 9.8 L (11.2-15.7) gm/dl Hct 30.8 L (34.1-44.9) % MCV 83.0 (79.4-94.8) fl MCH 26.4 (25.6-32.2) pg MCHC 31.8 L (32.2-35.5) g/dl RDW Std Deviation 43.3 (36.4-46.3) fL Plt Count 136 L (182-369) K/mm3 MPV 10.1 (9.4-12.3) fl Neut % (Auto) 81.4 H (34.0-71.1) % Lymph % (Auto) 11.2 L (19.3-51.7) % [place] % (Auto) 6.3 (4.7-12.5) % Eos % (Auto) 0.9 (0.7-5.8) Baso % (Auto) 0.2 (0.1-1.2) % Neut # (Auto) 4.30 (1.56-6.13) K/mm3 Lymph # (Auto) 0.59 L (1.18-3.74) K/mm3 [place] # (Auto) 0.33 (0.24-0.36) K/mm3 Eos # (Auto) 0.05 (0.04-0.36) K/mm3 Baso # (Auto) 0.01 (0.01-0.08) K/mm3 Sodium 140 (136-145) mEq/L Potassium 3.1 L (3.5-5.1) mEq/L Chloride 104 (98-107) mEq/L Carbon Dioxide 23 (21-32) mEq/L Anion Gap 16.1 H (5-15) BUN 10 (7-18) mg/dL Creatinine 0.7 (0.55-1.02) mg/dL Est Cr Clr Drug Dosing 56.27 mL/min Estimated GFR (MDRD) > 60 (>60) mL/min BUN/Creatinine Ratio 14.3 (14-18) Glucose 90 (83-115) mg/dL Calcium 8.4 L (8.5-10.1) mg/dL Magnesium 2.0 (1.8-2.4) mg/dl C-Reactive Protein 17.8 H* (<1.0) mg/dL [facility] Results Last 24 Hours: Microbiology 10/14/20 20:46 Aerobic Blood Culture - Preliminary Blood - Venous NO GROWTH AFTER 1 DAY Anaerobic Blood Culture - Preliminary NO GROWTH AFTER 1 DAY 10/14/20 20:40 Aerobic Blood Culture - Preliminary Blood - Venous - Lab Draw NO GROWTH AFTER 1 DAY Anaerobic Blood Culture - Preliminary NO GROWTH AFTER 1 DAY Med Orders - Current: Current Medications Acetaminophen (Tylenol) 650 mg PO Q4H PRN PRN Reason: Pain (Mild 1-3)/fever Albuterol/Ipratropium (Duoneb 3.0-0.5 Mg/3 Ml) 3 ml NEB Q6HRRT PRN PRN Reason: wheezing/SOB/cough Anastrozole (Arimidex) 1 mg PO DAILY [facility] Last Admin: 10/16/20 08:11 Dose: 1 mg Documented by: Aspirin (Aspirin) 81 mg PO BEDTIME [facility] Last Admin: 10/15/20 20:17 Dose: 81 mg Documented by: Azithromycin (Zithromax) 500 mg PO 2300 [facility] Last Admin: 10/15/20 22:24 Dose: 500 mg Documented by: Calcium Polycarbophil (Fibercon) 1,250 mg PO BID [facility] Last Admin: 10/16/20 08:10 Dose: 1,250 mg Documented by: Cholecalciferol (Vitamin D3) 50 mcg PO DAILY [facility] Last Admin: 10/16/20 08:10 Dose: 50 mcg Documented by: Clopidogrel Bisulfate (Plavix) 75 mg PO DAILY [facility] Last Admin: 10/16/20 08:10 Dose: 75 mg Documented by: Enoxaparin Sodium (Lovenox) 40 mg SUBCUT DAILY [facility] Last Admin: 10/16/20 08:07 Dose: 40 mg Documented by: Gabapentin (Neurontin) 300 mg PO BEDTIME [facility] Last Admin: 10/15/20 20:18 Dose: 300 mg Documented by: Guaifenesin/Phenylephrine HCl (Robitussin Dm) 10 ml PO TID@0700,1400,2100 PRN PRN Reason: Cough Ceftriaxone Sodium 2 gm/ (Sodium Chloride) 100 mls @ 200 mls/hr IV Q24H [facility] Last Admin: 10/16/20 08:05 Dose: 200 mls/hr Documented by: Imipramine HCl (Imipramine Hcl) 25 mg PO QPM [facility] Last Admin: 10/15/20 17:27 Dose: 25 mg Documented by: Lactulose (Cephulac) 3.35 gm PO DAILY [facility] Last Admin: 10/16/20 08:08 Dose: 3.35 gm Documented by: Lidocaine (Aspercreme 4%) 1 each TOP DAILY PRN PRN Reason: Pain Last Admin: 10/15/20 09:46 Dose: 1 each Documented by: Magnesium Oxide (Magnesium Oxide) 400 mg PO DAILY [facility] Last Admin: 10/16/20 08:10 Dose: 400 mg Documented by: Metoprolol Succinate (Toprol Xl) 50 mg PO DAILY [facility] Last Admin: 10/16/20 08:09 Dose: 50 mg Documented by: Miscellaneous Information (Remove Patch) 1 ea TRDERM DAILY PRN PRN Reason: REMOVE PATCH Last Admin: 10/15/20 21:46 Dose: 1 ea Documented by: Multivitamins (Thera) 1 each PO DAILY [facility] Last Admin: 10/16/20 08:10 Dose: 1 each Documented by: Ondansetron HCl (Zofran) 4 mg IV Q6H PRN PRN Reason: Nausea/Vomiting Potassium Chloride (Klor-Con M20) 40 meq PO BID [facility] Stop: 10/16/20 21:01 Last Admin: 10/16/20 08:10 Dose: 40 meq Documented by: Sertraline HCl (Zoloft) 100 mg PO DAILY [facility] Last Admin: 10/16/20 08:09 Dose: 100 mg Documented by: Discontinued Medications Amoxicillin/Clavulanate Potassium (Augmentin 875 Mg/125 Mg) 1 tab PO ONETIME STA Stop: 10/14/20 23:00 Last Admin: 10/15/20 04:16 Dose: Not Given Documented by: Amoxicillin/Clavulanate Potassium (Augmentin 600-42.9 Mg/5 Ml Susp) 2,000 mg PO ONETIME STA Stop: 10/14/20 23:05 Last Admin: 10/14/20 23:18 Dose: 16.6 ml Documented by: Amoxicillin/Clavulanate Potassium (Augmentin 600-42.9 Mg/5 Ml Susp) 2,000 mg PO BID [facility] Azithromycin (Zithromax) 500 mg PO ONETIME STA Stop: 10/14/20 23:01 Last Admin: 10/14/20 23:19 Dose: 500 mg Documented by: Azithromycin (Zithromax) 250 mg PO BEDTIME [facility] Clopidogrel Bisulfate (Plavix) 75 mg PO DAILY [facility] Last Admin: 10/15/20 11:24 Dose: Not Given Documented by: Clopidogrel Bisulfate (Plavix) 75 mg PO ONETIME ONE Stop: 10/15/20 11:31 Last Admin: 10/15/20 11:29 Dose: 75 mg Documented by: Enoxaparin Sodium (Lovenox) 40 mg SUBCUT DAILY [facility] Last Admin: 10/15/20 09:44 Dose: 40 mg Documented by: Sodium Chloride (Normal Saline) 1,000 mls @ 100 mls/hr IV ASDIRECTED [facility] Last Admin: 10/14/20 20:41 Dose: 100 mls/hr Documented by: Metoprolol Succinate (Toprol Xl) 50 mg PO DAILY [facility] Last Admin: 10/15/20 11:23 Dose: Not Given Documented by: Metoprolol Succinate (Toprol Xl) 50 mg PO ONETIME ONE Stop: 10/15/20 11:31 Last Admin: 10/15/20 11:28 Dose: 50 mg Documented by: Non-Formulary Medication (Clotrimazole) 1 dose TOP BID [facility] Last Admin: 10/15/20 11:21 Dose: Not Given Documented by: Potassium Chloride (Klor-Con M20) 20 meq PO DAILY [facility] - Exam Quality Assessment: DVT Prophylaxis. No: Supplemental Oxygen, Urine Catheter General: Alert, Oriented, Cooperative, No Acute Distress HEENT: Pupils Equal, Pupils Reactive, Mucous Membr. 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 ) Skin: Warm, Dry, Intact Neurological: No New Focal Deficit Psy/Mental Status: Alert, Normal Affect, Normal Mood Sepsis Event Note - Evaluation Sepsis Screening Result: No Definite Risk - Focused Exam Vital Signs: Vital Signs Temp Pulse Resp BP Pulse Ox 10/16/20 08:09 88 127/82 10/16/20 07:49 97.9 F 88 16 127/82 95 10/16/20 04:20 98.2 F 76 16 137/80 94 L 10/16/20 00:43 98.1 F 80 16 141/73 H 96 - Problem List & Annotations (1) Generalized weakness SNOMED Code(s): 46418092 Code(s): R53.1 - WEAKNESS Status: Acute Priority: High Current Visit: Yes (2) HLD (hyperlipidemia) SNOMED Code(s): 94739409 Code(s): E78.5 - HYPERLIPIDEMIA, UNSPECIFIED Status: Chronic Priority: Low Current Visit: No Qualifiers: Hyperlipidemia type: unspecified Qualified Code(s): E78.5 - Hyperlipidemia, unspecified (3) HTN (hypertension) SNOMED Code(s): 30851717 Code(s): I10 - ESSENTIAL (PRIMARY) HYPERTENSION Status: Chronic Priority: Medium Current Visit: No Qualifiers: Hypertension type: unspecified Qualified Code(s): I10 - Essential (primary) hypertension (4) Osteoporosis SNOMED Code(s): 58190962 Code(s): M81.0 - AGE-RELATED OSTEOPOROSIS W/O CURRENT PATHOLOGICAL FRACTURE Status: Chronic Priority: Low Current Visit: No Qualifiers: Osteoporosis type: unspecified Presence of current pathological fracture: without current pathological fracture Qualified Code(s): M81.0 - Age-related osteoporosis without current pathological fracture (5) Arthritis SNOMED Code(s): 4206169 Code(s): M19.90 - UNSPECIFIED OSTEOARTHRITIS, UNSPECIFIED SITE Status: Chronic Priority: Low Current Visit: No (6) History of cerebral aneurysm repair SNOMED Code(s): 488280141 Code(s): Z98.890 - OTHER SPECIFIED POSTPROCEDURAL STATES; Z86.79 - PERSONAL HISTORY OF OTHER DISEASES OF THE CIRCULATORY SYSTEM Status: Chronic Priority: Low Current Visit: No (7) History of CVA with residual deficit SNOMED Code(s): 341510541 Code(s): I69.30 - UNSPECIFIED SEQUELAE OF CEREBRAL INFARCTION Status: Chronic Priority: Medium Current Visit: No (8) Anxiety SNOMED Code(s): 30162156 Code(s): F41.9 - ANXIETY DISORDER, UNSPECIFIED Status: Chronic Priority: Low Current Visit: No (9) History of breast cancer SNOMED Code(s): 174191212 Code(s): Z85.3 - PERSONAL HISTORY OF MALIGNANT NEOPLASM OF BREAST Status: Chronic Priority: Low Current Visit: No (10) History of mastectomy SNOMED Code(s): 956128486, 161454837 Code(s): Z90.10 - ACQUIRED ABSENCE OF UNSPECIFIED BREAST AND NIPPLE Status: Chronic Priority: Low Current Visit: No (11) Lung cancer SNOMED Code(s): 403408313 Code(s): C34.90 - MALIGNANT NEOPLASM OF UNSP PART OF UNSP BRONCHUS OR LUNG Status: Chronic Priority: High Current Visit: Yes Qualifiers: Laterality: unspecified laterality Lung location: unspecified part of lung Qualified Code(s): C34.90 - Malignant neoplasm of unspecified part of unspecified bronchus or lung (12) Right lower lobe pneumonia SNOMED Code(s): 492506667 Code(s): J18.9 - PNEUMONIA, UNSPECIFIED ORGANISM Status: Acute Priority: High Current Visit: Yes Qualifiers: Pneumonia type: due to unspecified organism Qualified Code(s): J18.9 - Pneumonia, unspecified organism (13) Hypokalemia SNOMED Code(s): 73660150 Code(s): E87.6 - HYPOKALEMIA Status: Acute Priority: High Current Visit: Yes - Problem List Review Problem List Initiated/Reviewed/Updated: Yes - My Orders Last 24 Hours: My Active Orders 10/15/20 10:30 Anastrozole [Arimidex] 1 mg PO DAILY 10/15/20 14:00 Dextromethorphan/guaiFENesin [Robitussin DM] 10 ml PO TID@0700,1400,2100 PRN 10/15/20 18:00 Imipramine HCl 25 mg PO QPM 10/15/20 21:00 Aspirin 81 mg PO BEDTIME Gabapentin [Neurontin] 300 mg PO BEDTIME 10/15/20 23:00 Azithromycin [Zithromax] 500 mg PO 2300 10/16/20 00:55 STREP PNEUMONIAE ANTIGEN [MREF] Routine 10/16/20 09:00 Clopidogrel [Plavix] 75 mg PO DAILY Enoxaparin [Lovenox] 40 mg SUBCUT DAILY Lactulose [Cephulac] 3.35 gm PO DAILY Metoprolol Succinate [Toprol XL] 50 mg PO DAILY Potassium Chloride [Klor-Con M20] 40 meq PO BID Sertraline [Zoloft] 100 mg PO DAILY 10/17/20 05:11 BASIC METABOLIC PANEL,BMP [CHEM] AM CBC WITH AUTO DIFF [HEME] AM CRP [C-REACTIVE PROTEIN] [CHEM] AM MAGNESIUM [CHEM] AM 10/18/20 05:11 BASIC METABOLIC PANEL,BMP [CHEM] AM CBC WITH AUTO DIFF [HEME] AM CRP [C-REACTIVE PROTEIN] [CHEM] AM MAGNESIUM [CHEM] AM 10/19/20 05:11 BASIC METABOLIC PANEL,BMP [CHEM] AM CBC WITH AUTO DIFF [HEME] AM CRP [C-REACTIVE PROTEIN] [CHEM] AM MAGNESIUM [CHEM] AM - Assessment Assessment:: Assessment - 10/15/2020 (admitted late night on 10/14/2020) * 80yo female presents to ED via [facility] with weakness and fever * Reports fever at home was 10.29, in ED noted to be 101.1 * History of COVID-19 infection diagnosed in August 2020 * Reports no other symptoms, acknowledges fall this past weekend leading to hip bruising * History of suspected COPD, CVA with right hemipareses, Cervicobasilar degeneration, Left breast cancer with mastectomy, Lung Ca diagnosed August 2020 and currently being treated by Dr. Simental. Former smoker * 12-lead EKG in ED showed NSR with Paired PACs. Prolonged QTc. This was a change from prior EKG * CXR shows slight nodularity in right lung base * CTA shows: * 1. No findings of pulmonary embolism. * 2. 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 * 3. Slightly prominent subcarinal lymph nodes are seen as described above. These are most likely reactive. * 4. Emphysematous change within both lungs. * 5. Patchy area of increased density within the right lung base likely related to early area of pneumonia. * 6. Other findings as noted above which are nonacute. * Labs: * WBC 9.96 * Hgb 11.2 * Plt 148 * Neutrophils 93% with no bandemia * D-Dimer 2.03 * Sodium 137 * Potassium 4.0 * Anion gap 14.0 * BUN 20 * Creatinine 0.9 * GFR >60 * Lactic acid 1.0 * Magnesium 2.0 * AST 34, ALT 27, Alk Phos 73 * Albumin 3.4 * Negative Influenza A and B, Negative COVID-19, Negative MRSA * Given Oral Augmentin and azithromycin in ED with plan to discharge home * Noted to be too weak to return home * Admitted to M/S/P observation status for management of PNA and generalized weaknes * Upgraded to inpatient on 10/15/2020 10/16/2020 * Reports she feels much better today * Potassium low and supplemented * Remains off of oxygen * Blood cultures negative * Continues to work with PT/OT * Labs: * WBC 5.28 * Hemoglobin 9.8 * Platelet 136 * Neutrophils 81.4% * Sodium 140 * Potassium 3.1 * Anion gap 16.1 * GFR greater than 60 * CRP 17.8 * Vitamin D 90.1 * TSH 3.357 * Mycoplasma Negative * Continue current treatment plan * Hopeful for discharge back to [facility] tomorrow pending acceptance and continued improvement. - Plan Plan:: Right lower lobe pneumonia Generalized weakness Lung cancer * IS/Acapella * RT consultation * PRN duonebs * Droplet isolation * Continue 2gm Rocephin * Continue PO azithromycin * Sputum culture if able * Oxygen as needed * PT/OT evaluation * CM/SW consultation * PRN Robitussin DM * Blood cultures pending * Daily labs * Strep PNA * Droplet precautions Hypokalemia * Supplement HLD (hyperlipidemia) HTN (hypertension) Osteoporosis Arthritis History of cerebral aneurysm repair History of CVA with residual deficit - LUE Anxiety History of breast cancer History of mastectomy * Home medications as ordered * Monitor Code Status: Full code PCP: Dr. Foley Oncologis: Dr. Simental DVT Prophylaxis: Lovenox, Plavix and aspirin Social: Patient is . She lives at [facility]. Disposition: Admitted to floor observation status. Will upgrade to inpatient status given PNA and worsening weakness <Cristino Espinal - Last Filed: 10/16/20 15:55> - Patient Data Vitals - Most Recent: Last Vital Signs Temp 36.8 C 10/16/20 15:02 Pulse 71 10/16/20 15:02 Resp 16 10/16/20 15:02 BP 156/126 H 10/16/20 15:02 Pulse Ox 100 10/16/20 15:02 I&O - Last 24 Hours: Intake & Output 10/16/20 10/16/20 10/16/20 06:59 14:59 22:59 Intake Total 900 600 Output Total 800 1000 Balance 100 -400 Lab Results Last 24 Hours: Laboratory Results - last 24 hr 10/16/20 10/16/20 Range/Units 04:15 04:15 WBC 5.28 (3.98-10.04) K/mm3 RBC 3.71 L (3.98-5.22) M/mm3 Hgb 9.8 L (11.2-15.7) gm/dl Hct 30.8 L (34.1-44.9) % MCV 83.0 (79.4-94.8) fl MCH 26.4 (25.6-32.2) pg MCHC 31.8 L (32.2-35.5) g/dl RDW Std Deviation 43.3 (36.4-46.3) fL Plt Count 136 L (182-369) K/mm3 MPV 10.1 (9.4-12.3) fl Neut % (Auto) 81.4 H (34.0-71.1) % Lymph % (Auto) 11.2 L (19.3-51.7) % [place] % (Auto) 6.3 (4.7-12.5) % Eos % (Auto) 0.9 (0.7-5.8) Baso % (Auto) 0.2 (0.1-1.2) % Neut # (Auto) 4.30 (1.56-6.13) K/mm3 Lymph # (Auto) 0.59 L (1.18-3.74) K/mm3 [place] # (Auto) 0.33 (0.24-0.36) K/mm3 Eos # (Auto) 0.05 (0.04-0.36) K/mm3 Baso # (Auto) 0.01 (0.01-0.08) K/mm3 Sodium 140 (136-145) mEq/L Potassium 3.1 L (3.5-5.1) mEq/L Chloride 104 (98-107) mEq/L Carbon Dioxide 23 (21-32) mEq/L Anion Gap 16.1 H (5-15) BUN 10 (7-18) mg/dL Creatinine 0.7 (0.55-1.02) mg/dL Est Cr Clr Drug Dosing 56.27 mL/min Estimated GFR (MDRD) > 60 (>60) mL/min BUN/Creatinine Ratio 14.3 (14-18) Glucose 90 (83-115) mg/dL Calcium 8.4 L (8.5-10.1) mg/dL Magnesium 2.0 (1.8-2.4) mg/dl C-Reactive Protein 17.8 H* (<1.0) mg/dL [place] Results Last 24 Hours: Microbiology 10/14/20 20:46 Aerobic Blood Culture - Preliminary Blood - Venous NO GROWTH AFTER 1 DAY Anaerobic Blood Culture - Preliminary NO GROWTH AFTER 1 DAY 10/14/20 20:40 Aerobic Blood Culture - Preliminary Blood - Venous - Lab Draw NO GROWTH AFTER 1 DAY Anaerobic Blood Culture - Preliminary NO GROWTH AFTER 1 DAY Med Orders - Current: Current Medications Acetaminophen (Tylenol) 650 mg PO Q4H PRN PRN Reason: Pain (Mild 1-3)/fever Albuterol/Ipratropium (Duoneb 3.0-0.5 Mg/3 Ml) 3 ml NEB Q6HRRT PRN PRN Reason: wheezing/SOB/cough Anastrozole (Arimidex) 1 mg PO DAILY [facility] Last Admin: 10/16/20 08:11 Dose: 1 mg Documented by: Aspirin (Aspirin) 81 mg PO BEDTIME [facility] Last Admin: 10/15/20 20:17 Dose: 81 mg Documented by: Azithromycin (Zithromax) 500 mg PO 2300 [facility] Last Admin: 10/15/20 22:24 Dose: 500 mg Documented by: Calcium Polycarbophil (Fibercon) 1,250 mg PO BID [facility] Last Admin: 10/16/20 08:10 Dose: 1,250 mg Documented by: Cholecalciferol (Vitamin D3) 50 mcg PO DAILY [facility] Last Admin: 10/16/20 08:10 Dose: 50 mcg Documented by: Clopidogrel Bisulfate (Plavix) 75 mg PO DAILY [facility] Last Admin: 10/16/20 08:10 Dose: 75 mg Documented by: Enoxaparin Sodium (Lovenox) 40 mg SUBCUT DAILY [facility] Last Admin: 10/16/20 08:07 Dose: 40 mg Documented by: Gabapentin (Neurontin) 300 mg PO BEDTIME [facility] Last Admin: 10/15/20 20:18 Dose: 300 mg Documented by: Guaifenesin/Phenylephrine HCl (Robitussin Dm) 10 ml PO TID@0700,1400,2100 PRN PRN Reason: Cough Ceftriaxone Sodium 2 gm/ (Sodium Chloride) 100 mls @ 200 mls/hr IV Q24H [facility] Last Admin: 10/16/20 08:05 Dose: 200 mls/hr Documented by: Imipramine HCl (Imipramine Hcl) 25 mg PO QPM [facility] Last Admin: 10/15/20 17:27 Dose: 25 mg Documented by: Lactulose (Cephulac) 3.35 gm PO DAILY [facility] Last Admin: 10/16/20 08:08 Dose: 3.35 gm Documented by: Lidocaine (Aspercreme 4%) 1 each TOP DAILY PRN PRN Reason: Pain Last Admin: 10/15/20 09:46 Dose: 1 each Documented by: Magnesium Oxide (Magnesium Oxide) 400 mg PO DAILY [facility] Last Admin: 10/16/20 08:10 Dose: 400 mg Documented by: Metoprolol Succinate (Toprol Xl) 50 mg PO DAILY [facility] Last Admin: 10/16/20 08:09 Dose: 50 mg Documented by: Miscellaneous Information (Remove Patch) 1 ea TRDERM DAILY PRN PRN Reason: REMOVE PATCH Last Admin: 10/15/20 21:46 Dose: 1 ea Documented by: Multivitamins (Thera) 1 each PO DAILY [facility] Last Admin: 10/16/20 08:10 Dose: 1 each Documented by: Ondansetron HCl (Zofran) 4 mg IV Q6H PRN PRN Reason: Nausea/Vomiting Potassium Chloride (Klor-Con M20) 40 meq PO BID [facility] Stop: 10/16/20 21:01 Last Admin: 10/16/20 08:10 Dose: 40 meq Documented by: Sertraline HCl (Zoloft) 100 mg PO DAILY [facility] Last Admin: 10/16/20 08:09 Dose: 100 mg Documented by: Discontinued Medications Amoxicillin/Clavulanate Potassium (Augmentin 875 Mg/125 Mg) 1 tab PO ONETIME [facility] Stop: 10/14/20 23:00 Last Admin: 10/15/20 04:16 Dose: Not Given Documented by: Amoxicillin/Clavulanate Potassium (Augmentin 600-42.9 Mg/5 Ml Susp) 2,000 mg PO ONETIME [facility] Stop: 10/14/20 23:05 Last Admin: 10/14/20 23:18 Dose: 16.6 ml Documented by: Amoxicillin/Clavulanate Potassium (Augmentin 600-42.9 Mg/5 Ml Susp) 2,000 mg PO BID [facility] Azithromycin (Zithromax) 500 mg PO ONETIME [facility] Stop: 10/14/20 23:01 Last Admin: 10/14/20 23:19 Dose: 500 mg Documented by: Azithromycin (Zithromax) 250 mg PO BEDTIME [facility] Clopidogrel Bisulfate (Plavix) 75 mg PO DAILY [facility] Last Admin: 10/15/20 11:24 Dose: Not Given Documented by: Clopidogrel Bisulfate (Plavix) 75 mg PO ONETIME ONE Stop: 10/15/20 11:31 Last Admin: 10/15/20 11:29 Dose: 75 mg Documented by: Enoxaparin Sodium (Lovenox) 40 mg SUBCUT DAILY [facility] Last Admin: 10/15/20 09:44 Dose: 40 mg Documented by: Sodium Chloride (Normal Saline) 1,000 mls @ 100 mls/hr IV ASDIRECTED [facility] Last Admin: 10/14/20 20:41 Dose: 100 mls/hr Documented by: Metoprolol Succinate (Toprol Xl) 50 mg PO DAILY [facility] Last Admin: 10/15/20 11:23 Dose: Not Given Documented by: Metoprolol Succinate (Toprol Xl) 50 mg PO ONETIME ONE Stop: 10/15/20 11:31 Last Admin: 10/15/20 11:28 Dose: 50 mg Documented by: Non-Formulary Medication (Clotrimazole) 1 dose TOP BID [facility] Last Admin: 10/15/20 11:21 Dose: Not Given Documented by: Potassium Chloride (Klor-Con M20) 20 meq PO DAILY [facility] Sepsis Event Note - Focused Exam Vital Signs: Vital Signs Temp Pulse Resp BP Pulse Ox 10/16/20 15:02 36.8 C 71 16 156/126 H 100 10/16/20 11:44 36.4 C 69 18 143/88 H 99 10/16/20 08:09 88 127/82 10/16/20 07:49 36.6 C 88 16 127/82 95 10/16/20 04:20 36.8 C 76 16 137/80 94 L - Plan Plan:: I have seen and evaluated the patient independently of David Szymanski PA-C. I have reviewed and agree with the plan of care as outlined by him for this patient. Please see orders.
[2020-10-16] MEDS: Aspirin 81 MG Tab.Chew PO SCH (20:44)
[2020-10-16] MEDS: Gabapentin 300 MG Cap PO SCH (20:45)
[2020-10-16] MEDS: Azithromycin 250 MG Tab PO SCH (22:31)
--- NOTE | 2020-10-17 09:25 | PCM.DCSUM1 ---
<David Szymanski - Last Filed: 10/17/20 15:05> Discharge Summary - Hospital Course HPI Initial Comments: This is a 80-year-old female who resides at [facility] who presents to our ED via [place] [facility] with fever of 102.9 and weakness. She denies any associated chills, cough, dyspnea, chest pain, palpitations, nausea, vomiting, constipation, diarrhea, levi pain, urinary symptoms, or prior similar symptoms. She reports that her weakness has been gradually increasing and she was noted to fall attempting to get into bed over the weekend injuring her left hip. In the ED she is found to have a temp of 101.1 degrees but she has oxygen saturations 95% on room air. She was diagnosed with COVID-19 in August 2020 and reports she was feeling pretty good up until the day she came to the emergency room. In the ED twelve-lead EKG is obtained showing a sinus rhythm at 99 bpm with p airs of PACs and prolonged QTC. This is a change from earlier twelve-lead obtained on 09/27/2020. Labs were obtained with a WBC of 9.96. Hemoglobin 11.2. She is normocytic. Platelets are low at 140,000. Neutrophils are elevated at 93%. There is no bandemia. D-dimer is elevated 2.03. Sodium is 137. Potassium 4.0. Chloride is 102. Carbon oxide 25. Anion gap is 14.0. BUN is 20. Creatinine 0.9. GFR is greater than 60. Calcium is 8.1. Magnesium is 2.0. Bilirubin 0.5. AST 34, ALT 27, alkaline phosphatase 73. Albumin is 3.4. Lactic acid is 1.0. UA is obtained and is negative however 1+ ketones, and occasional bacteria are noted. Influenza and SARS-CoV-2 RNA test are all negative. Chest x-rays obtained and shows slight nodularity in right lung base. Given elevated D-dimer CTA is obtained and interpreted by Dr. Lim as 1. No findings of pulmonary embolism. 2. 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 3. Slightly prominent subcarinal lymph nodes are seen as described above. These are most likely reactive. 4. Emphysematous change within both lungs. 5. Patchy area of increased density within the right lung base likely related to early area of pneumonia. 6. Other findings as noted above which are nonacute. The patient is started on a 5-day course of p.o. Augmentin and azithromycin. First dose is given in the ED. Plan was to discharge patient home however becomes apparent the patient is too weak to go home. She is therefore admitted to the floor observation status for management of her pneumonia and generalized weakness. 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 She is a former smoker. Her PCP is Dr. Foley. Her oncologist is Dr. Simental. She is a full code. Diagnosis: Stroke: No - Discharge Data Discharge Date: 10/17/20 (Admit date: 10/14/2020) Discharge Disposition: DC/Tfer to Other 70 Condition: Good - Referral to Home Health Primary Care Physician: Eliot Samuels MD - Discharge Diagnosis/Problem(s) (1) Generalized weakness SNOMED Code(s): 98817557 ICD Code: R53.1 - WEAKNESS Status: Acute Priority: High (2) HLD (hyperlipidemia) SNOMED Code(s): 17018192 ICD Code: E78.5 - HYPERLIPIDEMIA, UNSPECIFIED Status: Chronic Priority: Low Qualifiers: Hyperlipidemia type: unspecified Qualified Code(s): E78.5 - Hyperlipidemia, unspecified (3) HTN (hypertension) SNOMED Code(s): 03175558 ICD Code: I10 - ESSENTIAL (PRIMARY) HYPERTENSION Status: Chronic Priority: Medium Qualifiers: Hypertension type: unspecified Qualified Code(s): I10 - Essential (primary) hypertension (4) Osteoporosis SNOMED Code(s): 68646094 ICD Code: M81.0 - AGE-RELATED OSTEOPOROSIS W/O CURRENT PATHOLOGICAL FRACTURE Status: Chronic Priority: Low Qualifiers: Osteoporosis type: unspecified Presence of current pathological fracture: without current pathological fracture Qualified Code(s): M81.0 - Age-related osteoporosis without current pathological fracture (5) Arthritis SNOMED Code(s): 3769153 ICD Code: M19.90 - UNSPECIFIED OSTEOARTHRITIS, UNSPECIFIED SITE Status: Chronic Priority: Low (6) History of cerebral aneurysm repair SNOMED Code(s): 494079890 ICD Code: Z98.890 - OTHER SPECIFIED POSTPROCEDURAL STATES; Z86.79 - PERSONAL HISTORY OF OTHER DISEASES OF THE CIRCULATORY SYSTEM Status: Chronic Priority: Low (7) History of CVA with residual deficit SNOMED Code(s): 112441981 ICD Code: I69.30 - UNSPECIFIED SEQUELAE OF CEREBRAL INFARCTION Status: Chronic Priority: Medium (8) Anxiety SNOMED Code(s): 82434497 ICD Code: F41.9 - ANXIETY DISORDER, UNSPECIFIED Status: Chronic Priority: Low (9) History of breast cancer SNOMED Code(s): 096581677 ICD Code: Z85.3 - PERSONAL HISTORY OF MALIGNANT NEOPLASM OF BREAST Status: Chronic Priority: Low (10) History of mastectomy SNOMED Code(s): 888039189, 917697579 ICD Code: Z90.10 - ACQUIRED ABSENCE OF UNSPECIFIED BREAST AND NIPPLE Status: Chronic Priority: Low (11) Lung cancer SNOMED Code(s): 194890139 ICD Code: C34.90 - MALIGNANT NEOPLASM OF UNSP PART OF UNSP BRONCHUS OR LUNG Status: Chronic Priority: High Qualifiers: Laterality: unspecified laterality Lung location: unspecified part of lung Qualified Code(s): C34.90 - Malignant neoplasm of unspecified part of unspecified bronchus or lung (12) Right lower lobe pneumonia SNOMED Code(s): 003375012 ICD Code: J18.9 - PNEUMONIA, UNSPECIFIED ORGANISM Status: Acute Priority: High Qualifiers: Pneumonia type: due to unspecified organism Qualified Code(s): J18.9 - Pneumonia, unspecified organism (13) Hypokalemia SNOMED Code(s): 24848101 ICD Code: E87.6 - HYPOKALEMIA Status: Acute Priority: High - Patient Summary/Data Consults: Consultations 10/15/20 08:14 Consult to Case Management/Cafeteria Monitor [CONS] Routine Consult to Spiritual Care [CONS] Routine OT Evaluation and Treatment [CONS] Routine PT Evaluation and Treatment [CONS] Routine Respiratory Care Assess and Treatment [CONS] Routine Labs Pending at D/C: Sputum culture Recommended Follow-up Testing/Procedures: Recommend follow-up with PCP within 7-10 days of discharge, sooner if needed. Hospital Course: Nany was admitted to the M/S/P floor overnight on 10/14/2020 with weakness and fever. She had previously had a COVID-19 infection which was diagnosed in August 2020 and she had recovered. She has a history of COPD, CVA with right hemiparesis, cervicobasilar degeneration, left breast cancer with mastectomy, and lung cancer that was diagnosed on August 2020. She was undergoing treatment by Dr. Simental for this. CTA obtained in the ED due to elevated D-dimer noted no signs of pulmonary embolism. 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 Slightly prominent subcarinal lymph nodes are seen as described above. These are most likely reactive. Emphysematous change within both lungs. Patchy area of increased density within the right lung base likely related area of early pneumonia. Another findings which are nonacute. She was given oral Augmentin and azithromycin in the ED and the plan was to discharge home however she was noted to be too weak to return there. She was then admitted to the floor observation status and upgraded to inpatient. Electrolytes were supplemented. Blood cultures remain negative. She was not requiring oxygen. No leukocytosis was ever noted. She was switched to 2 g IV Rocephin on the floor and this was changed to p.o. Keflex at discharge. She was also continued to receive her p.o. azithromycin. She is utilizing her incentive spirometer and Acapella. She was evaluated by PT and OT who recommended return home to [facility]. Her symptoms greatly improved throughout her stay. She reported that only minimal weakness and minimal shortness of breath remained. Wound culture was obtained and results are still pending. Mycoplasma, strep pneumonia, SARS-CoV-2 RNA, and MRSA were all negative. Influenza A and B were also negative. She was discharged back to [facility] today she was given a 4-day's course of 500 mg every 8 hour Keflex. She completed 3 days worth of azithromycin prior to discharge. She was instructed to continue to utilize her incentive spirometer and Acapella at discharge for 1 to 2 weeks or until symptoms resolve. She instructed to follow-up with her primary care provider within 7 to 10 days of discharge. She should follow-up with her oncologist as scheduled. She was instructed to return to the emergency room or contact her primary care provider if symptoms return or worsen. - Patient Instructions Diet: Usual Diet as Tolerated Activity: As Tolerated Driving: Do Not Drive Showering/Bathing: May Shower Notify Provider of: Fever, Increased Pain, Nausea and/or Vomiting Other/Special Instructions: Follow-up with primary care provider within 7-10 days of discharge, sooner if needed. Follow-up with Dr. Simental as scheduled. You recieved a dose of IV antbiotic today before you left. This is good for 24 hours. You were prescribed an antibiotic (Keflex) which is a pill. You should take your first pill on the morning of 10/18/2020 and every 8 hours after that until gone (4 days). Resume home medications as directed. Continue to utilize your incentive spirometer (clear/blue device you inhale through) and acapella (green tube you blow through) for 1-2 weeks or until symptoms resolve. Continue PT/OT at [facility]. Should symptoms return or worsen, contact primary care provider or return to the Emergency Department. - Discharge Plan *PRESCRIPTION DRUG MONITORING PROGRAM REVIEWED*: Not Applicable *COPY OF PRESCRIPTION DRUG MONITORING REPORT IN PATIENT FRANCISCA: Not Applicable Prescriptions/Med Rec: cephALEXin [Keflex] 500 mg PO Q8H #12 capsule Home Medications: Home Meds Gabapentin 300 mg PO BEDTIME 06/01/16 [History] Clopidogrel Bisulfate [Clopidogrel] 75 mg PO DAILY 01/04/19 [History] Rosuvastatin [Crestor] 20 mg PO DAILY 01/04/19 [History] Sertraline [Zoloft] 100 mg PO DAILY 01/04/19 [History] Aspirin 81 mg PO BEDTIME 10/16/19 [History] Fish Oil/Borage/Flax/Om3,6,9 1 [[place] 3-6-9 Complex Softgel] 1 tab PO DAILY 10/16/19 [History] Metoprolol Succinate [Toprol Xl] 50 mg PO DAILY 10/16/19 [History] Multivitamin [Multivitamins] 1 cap PO DAILY 10/16/19 [History] Potassium Chloride 20 meq PO DAILY #30 tablet.er 09/27/20 [Rx] Acetaminophen [Pain Relief] 650 mg PO ASDIRECTED PRN 10/14/20 [History] Clotrimazole [Clotrimazole 1%] 1 dose TOP BID 10/14/20 [History] Imipramine HCl [Imipramine] 25 mg PO QPM 10/14/20 [History] Lactulose [Generlac] 5 ml PO DAILY 10/14/20 [History] Lidocaine [Aspercreme Lidocaine] 1 applic TOP DAILY PRN 10/14/20 [History] Magnesium Oxide 400 mg PO DAILY 10/14/20 [History] Anastrozole [Arimidex] 1 mg PO DAILY 10/15/20 [History] Calcium Carbonate [Tums] 400 mg PO 6XDAY PRN MDD 15 tabs 10/15/20 [History] Cholecalciferol (Vitamin D3) [Vitamin D3] 2,000 unit PO DAILY 10/15/20 [History] calcium polycarbophiL [Fiber Tabs] 1,250 mg PO BID 10/15/20 [History] cephALEXin [Keflex] 500 mg PO Q8H #12 capsule 10/17/20 [Rx] Oxygen Therapy Mode: Room Air Patient Handouts: Weakness, [id number], Community-Acquired Pneumonia, Adult, [id number], Sepsis, Self Care, Adult Forms: ED Department Discharge Referrals: Eliot Samuels MD [Primary Care Provider] - 10/28/20 9:30 am (come 15 minutes early to register) Domenico Simental MD [Ordering Only Provider] - - Discharge Summary/Plan Comment DC Time >30 min.: Yes (45 mins ) - General Info Date of Service: 10/17/20 Admission Dx/Problem (Free Text: Admission Diagnosis/Problem Admission Diagnosis/Problem Pneumonia Functional Status: Reports: Pain Controlled, Tolerating Diet, Ambulating, Urinating, New Symptoms, Incentive Spirometry, Other (Acapella ) - Review of Systems General: Reports: Weakness (minimal - improved ). Denies: Fever, Fatigue, Malaise, Chills HEENT: Reports: No Symptoms. Denies: Headaches, Sore Throat Pulmonary: Reports: Shortness of Breath (mild ), Cough (minimal ). Denies: Pleuritic Chest Pain, Sputum, Wheezing Cardiovascular: Reports: Dyspnea on Exertion. Denies: Chest Pain Gastrointestinal: Reports: No Symptoms. Denies: Abdominal Pain, Constipation, Diarrhea, Nausea, Vomiting Genitourinary: Reports: No Symptoms. Denies: Pain Musculoskeletal: Reports: No Symptoms Skin: Reports: No Symptoms. Denies: Cyanosis Neurological: Reports: Pre-Existing Deficit (right arm spastic paralysis ). Denies: Confusion, Numbness, Tingling, Difficulty Walking, Weakness, Gait Disturbance Psychiatric: Reports: No Symptoms - Patient Data Vitals - Most Recent: Last Vital Signs Temp 98.4 F 10/17/20 07:51 Pulse 77 10/17/20 07:51 Resp 18 10/17/20 07:51 BP 123/77 10/17/20 07:51 Pulse Ox 100 10/17/20 07:51 Weight - Most Recent: 55.883 kg I&O - Last 24 hours: Intake & Output 10/16/20 10/17/20 10/17/20 22:59 06:59 14:59 Intake Total 880 700 Output Total 1000 1000 Balance -120 -300 Lab Results - Last 24 hrs: Laboratory Results - last 24 hr 10/17/20 10/17/20 Range/Units 04:40 04:40 WBC 3.25 L (3.98-10.04) K/mm3 RBC 4.06 (3.98-5.22) M/mm3 Hgb 10.5 L (11.2-15.7) gm/dl Hct 33.9 L (34.1-44.9) % MCV 83.5 (79.4-94.8) fl MCH 25.9 (25.6-32.2) pg MCHC 31.0 L (32.2-35.5) g/dl RDW Std Deviation 43.3 (36.4-46.3) fL Plt Count 161 L (182-369) K/mm3 MPV 10.5 (9.4-12.3) fl Neut % (Auto) 69.9 (34.0-71.1) % Lymph % (Auto) 17.2 L (19.3-51.7) % Sunflower % (Auto) 9.8 (4.7-12.5) % Eos % (Auto) 2.5 (0.7-5.8) Baso % (Auto) 0.3 (0.1-1.2) % Neut # (Auto) 2.27 (1.56-6.13) K/mm3 Lymph # (Auto) 0.56 L (1.18-3.74) K/mm3 Sunflower # (Auto) 0.32 (0.24-0.36) K/mm3 Eos # (Auto) 0.08 (0.04-0.36) K/mm3 Baso # (Auto) 0.01 (0.01-0.08) K/mm3 Sodium 139 (136-145) mEq/L Potassium 4.0 (3.5-5.1) mEq/L Chloride 104 (98-107) mEq/L Carbon Dioxide 23 (21-32) mEq/L Anion Gap 16.0 H (5-15) BUN 11 (7-18) mg/dL Creatinine 0.8 (0.55-1.02) mg/dL Est Cr Clr Drug Dosing 49.24 mL/min Estimated GFR (MDRD) > 60 (>60) mL/min BUN/Creatinine Ratio 13.8 L (14-18) Glucose 84 (83-115) mg/dL Calcium 8.9 (8.5-10.1) mg/dL Magnesium 2.0 (1.8-2.4) mg/dl C-Reactive Protein 11.5 H* (<1.0) mg/dL JEM Results - Last 24 hrs: Microbiology 10/16/20 00:55 Streptococcus pneumoniae Antigen (M - Final Urine 10/14/20 20:46 Aerobic Blood Culture - Preliminary Blood - Venous NO GROWTH AFTER 2 DAYS Anaerobic Blood Culture - Preliminary NO GROWTH AFTER 2 DAYS 10/14/20 20:40 Aerobic Blood Culture - Preliminary Blood - Venous - Lab Draw NO GROWTH AFTER 2 DAYS Anaerobic Blood Culture - Preliminary NO GROWTH AFTER 2 DAYS 10/16/20 18:30 Gram Stain - Preliminary Sputum - Expectorated Med Orders - Current: Current Medications Acetaminophen (Tylenol) 650 mg PO Q4H PRN PRN Reason: Pain (Mild 1-3)/fever Albuterol/Ipratropium (Duoneb 3.0-0.5 Mg/3 Ml) 3 ml NEB Q6HRRT PRN PRN Reason: wheezing/SOB/cough Anastrozole (Arimidex) 1 mg PO DAILY [facility] Last Admin: 10/16/20 08:11 Dose: 1 mg Documented by: Aspirin (Aspirin) 81 mg PO BEDTIME [facility] Last Admin: 10/16/20 20:44 Dose: 81 mg Documented by: Azithromycin (Zithromax) 500 mg PO 2300 [facility] Last Admin: 10/16/20 22:31 Dose: 500 mg Documented by: Calcium Polycarbophil (Fibercon) 1,250 mg PO BID [facility] Last Admin: 10/16/20 20:44 Dose: 1,250 mg Documented by: Cholecalciferol (Vitamin D3) 50 mcg PO DAILY [facility] Last Admin: 10/16/20 08:10 Dose: 50 mcg Documented by: Clopidogrel Bisulfate (Plavix) 75 mg PO DAILY [facility] Last Admin: 10/16/20 08:10 Dose: 75 mg Documented by: Enoxaparin Sodium (Lovenox) 40 mg SUBCUT DAILY [facility] Last Admin: 10/16/20 08:07 Dose: 40 mg Documented by: Gabapentin (Neurontin) 300 mg PO BEDTIME [facility] Last Admin: 10/16/20 20:45 Dose: 300 mg Documented by: Guaifenesin/Phenylephrine HCl (Robitussin Dm) 10 ml PO TID@0700,1400,2100 PRN PRN Reason: Cough Ceftriaxone Sodium 2 gm/ (Sodium Chloride) 100 mls @ 200 mls/hr IV Q24H [facility] Last Admin: 10/16/20 08:05 Dose: 200 mls/hr Documented by: Imipramine HCl (Imipramine Hcl) 25 mg PO QPM [facility] Last Admin: 10/16/20 18:02 Dose: 25 mg Documented by: Lactulose (Cephulac) 3.35 gm PO DAILY [facility] Last Admin: 10/16/20 08:08 Dose: 3.35 gm Documented by: Lidocaine (Aspercreme 4%) 1 each TOP DAILY PRN PRN Reason: Pain Last Admin: 10/15/20 09:46 Dose: 1 each Documented by: Magnesium Oxide (Magnesium Oxide) 400 mg PO DAILY [facility] Last Admin: 10/16/20 08:10 Dose: 400 mg Documented by: Metoprolol Succinate (Toprol Xl) 50 mg PO DAILY [facility] Last Admin: 10/16/20 08:09 Dose: 50 mg Documented by: Miscellaneous Information (Remove Patch) 1 ea TRDERM DAILY PRN PRN Reason: REMOVE PATCH Last Admin: 10/15/20 21:46 Dose: 1 ea Documented by: Multivitamins (Thera) 1 each PO DAILY [facility] Last Admin: 10/16/20 08:10 Dose: 1 each Documented by: Ondansetron HCl (Zofran) 4 mg IV Q6H PRN PRN Reason: Nausea/Vomiting Sertraline HCl (Zoloft) 100 mg PO DAILY [facility] Last Admin: 10/16/20 08:09 Dose: 100 mg Documented by: Discontinued Medications Amoxicillin/Clavulanate Potassium (Augmentin 875 Mg/125 Mg) 1 tab PO ONETIME STA Stop: 10/14/20 23:00 Last Admin: 10/15/20 04:16 Dose: Not Given Documented by: Amoxicillin/Clavulanate Potassium (Augmentin 600-42.9 Mg/5 Ml Susp) 2,000 mg PO ONETIME STA Stop: 10/14/20 23:05 Last Admin: 10/14/20 23:18 Dose: 16.6 ml Documented by: Amoxicillin/Clavulanate Potassium (Augmentin 600-42.9 Mg/5 Ml Susp) 2,000 mg PO BID [facility] Azithromycin (Zithromax) 500 mg PO ONETIME STA Stop: 10/14/20 23:01 Last Admin: 10/14/20 23:19 Dose: 500 mg Documented by: Azithromycin (Zithromax) 250 mg PO BEDTIME [facility] Clopidogrel Bisulfate (Plavix) 75 mg PO DAILY [facility] Last Admin: 10/15/20 11:24 Dose: Not Given Documented by: Clopidogrel Bisulfate (Plavix) 75 mg PO ONETIME ONE Stop: 10/15/20 11:31 Last Admin: 10/15/20 11:29 Dose: 75 mg Documented by: Enoxaparin Sodium (Lovenox) 40 mg SUBCUT DAILY [facility] Last Admin: 10/15/20 09:44 Dose: 40 mg Documented by: Sodium Chloride (Normal Saline) 1,000 mls @ 100 mls/hr IV ASDIRECTED [facility] Last Admin: 10/14/20 20:41 Dose: 100 mls/hr Documented by: Metoprolol Succinate (Toprol Xl) 50 mg PO DAILY [facility] Last Admin: 10/15/20 11:23 Dose: Not Given Documented by: Metoprolol Succinate (Toprol Xl) 50 mg PO ONETIME ONE Stop: 10/15/20 11:31 Last Admin: 10/15/20 11:28 Dose: 50 mg Documented by: Non-Formulary Medication (Clotrimazole) 1 dose TOP BID [facility] Last Admin: 10/15/20 11:21 Dose: Not Given Documented by: Potassium Chloride (Klor-Con M20) 20 meq PO DAILY [facility] Potassium Chloride (Klor-Con M20) 40 meq PO BID [facility] Stop: 10/16/20 21:01 Last Admin: 10/16/20 20:44 Dose: 40 meq Documented by: - Exam Quality Assessment: Reports: DVT Prophylaxis. Denies: Supplemental Oxygen General: Reports: Alert, Oriented, Cooperative, No Acute Distress HEENT: Reports: Pupils Equal, Pupils Reactive, Mucous Membr. Moist/[place] Neck: Reports: Supple, Trachea Midline Lungs: Reports: Clear to Auscultation, Normal Respiratory Effort, Decreased Breath Sounds Cardiovascular: Reports: Regular Rate, Regular Rhythm GI/Abdominal Exam: Normal Bowel Sounds, Soft, Non-Tender, No Distention (Female) Exam: Deferred Rectal (Female) Exam: Normal Exam, Normal Rectal Tone Back Exam: Reports: Normal Inspection, Full Range of Motion Extremities: Normal Inspection, Non-Tender, No Pedal Edema, Normal Capillary Refill, Limited Range of Motion (left upper extremity spastic paralysis ) Skin: Reports: Warm, Dry, Intact Neurological: Reports: No New Focal Deficit Psy/Mental Status: Reports: Alert, Normal Affect, Normal Mood <Cristino Espinal - Last Filed: 10/17/20 18:29> Discharge Summary - Referral to Home Health Primary Care Physician: Eliot Samuels MD - Patient Summary/Data Consults: Consultations 10/15/20 08:14 Consult to Case Management/Cafeteria Monitor [CONS] Routine Consult to Spiritual Care [CONS] Routine OT Evaluation and Treatment [CONS] Routine PT Evaluation and Treatment [CONS] Routine Respiratory Care Assess and Treatment [CONS] Routine Hospital Course: I have seen and evaluated the patient independent of David Szymanski PA-C. I have reviewed and agree with the plan of care as outlined for this patient by him. I have discussed the case with David. Please see orders. - Patient Data Vitals - Most Recent: Last Vital Signs Temp 36.3 C 10/17/20 12:32 Pulse 102 H 10/17/20 12:32 Resp 16 10/17/20 12:32 BP 112/77 10/17/20 12:32 Pulse Ox 99 10/17/20 12:32 I&O - Last 24 hours: Intake & Output 10/17/20 10/17/20 10/17/20 06:59 14:59 22:59 Intake Total 700 180 Output Total 1000 Balance -300 180 Lab Results - Last 24 hrs: Laboratory Results - last 24 hr 10/17/20 10/17/20 Range/Units 04:40 04:40 WBC 3.25 L (3.98-10.04) K/mm3 RBC 4.06 (3.98-5.22) M/mm3 Hgb 10.5 L (11.2-15.7) gm/dl Hct 33.9 L (34.1-44.9) % MCV 83.5 (79.4-94.8) fl MCH 25.9 (25.6-32.2) pg MCHC 31.0 L (32.2-35.5) g/dl RDW Std Deviation 43.3 (36.4-46.3) fL Plt Count 161 L (182-369) K/mm3 MPV 10.5 (9.4-12.3) fl Neut % (Auto) 69.9 (34.0-71.1) % Lymph % (Auto) 17.2 L (19.3-51.7) % Sunflower % (Auto) 9.8 (4.7-12.5) % Eos % (Auto) 2.5 (0.7-5.8) Baso % (Auto) 0.3 (0.1-1.2) % Neut # (Auto) 2.27 (1.56-6.13) K/mm3 Lymph # (Auto) 0.56 L (1.18-3.74) K/mm3 Sunflower # (Auto) 0.32 (0.24-0.36) K/mm3 Eos # (Auto) 0.08 (0.04-0.36) K/mm3 Baso # (Auto) 0.01 (0.01-0.08) K/mm3 Sodium 139 (136-145) mEq/L Potassium 4.0 (3.5-5.1) mEq/L Chloride 104 (98-107) mEq/L Carbon Dioxide 23 (21-32) mEq/L Anion Gap 16.0 H (5-15) BUN 11 (7-18) mg/dL Creatinine 0.8 (0.55-1.02) mg/dL Est Cr Clr Drug Dosing 49.24 mL/min Estimated GFR (MDRD) > 60 (>60) mL/min BUN/Creatinine Ratio 13.8 L (14-18) Glucose 84 (83-115) mg/dL Calcium 8.9 (8.5-10.1) mg/dL Magnesium 2.0 (1.8-2.4) mg/dl C-Reactive Protein 11.5 H* (<1.0) mg/dL JEM Results - Last 24 hrs: Microbiology 10/16/20 18:30 Gram Stain - Preliminary Sputum - Expectorated 10/16/20 00:55 Streptococcus pneumoniae Antigen (M - Final Urine 10/14/20 20:46 Aerobic Blood Culture - Preliminary Blood - Venous NO GROWTH AFTER 2 DAYS Anaerobic Blood Culture - Preliminary NO GROWTH AFTER 2 DAYS 10/14/20 20:40 Aerobic Blood Culture - Preliminary Blood - Venous - Lab Draw NO GROWTH AFTER 2 DAYS Anaerobic Blood Culture - Preliminary NO GROWTH AFTER 2 DAYS Med Orders - Current: Current Medications Discontinued Medications Acetaminophen (Tylenol) 650 mg PO Q4H PRN PRN Reason: Pain (Mild 1-3)/fever Albuterol/Ipratropium (Duoneb 3.0-0.5 Mg/3 Ml) 3 ml NEB Q6HRRT PRN PRN Reason: wheezing/SOB/cough Amoxicillin/Clavulanate Potassium (Augmentin 875 Mg/125 Mg) 1 tab PO ONETIME STA Stop: 10/14/20 23:00 Last Admin: 10/15/20 04:16 Dose: Not Given Documented by: Amoxicillin/Clavulanate Potassium (Augmentin 600-42.9 Mg/5 Ml Susp) 2,000 mg PO ONETIME STA Stop: 10/14/20 23:05 Last Admin: 10/14/20 23:18 Dose: 16.6 ml Documented by: Amoxicillin/Clavulanate Potassium (Augmentin 600-42.9 Mg/5 Ml Susp) 2,000 mg PO BID [facility] Anastrozole (Arimidex) 1 mg PO DAILY [facility] Last Admin: 10/17/20 09:40 Dose: 1 mg Documented by: Aspirin (Aspirin) 81 mg PO BEDTIME [facility] Last Admin: 10/16/20 20:44 Dose: 81 mg Documented by: Azithromycin (Zithromax) 500 mg PO ONETIME STA Stop: 10/14/20 23:01 Last Admin: 10/14/20 23:19 Dose: 500 mg Documented by: Azithromycin (Zithromax) 250 mg PO BEDTIME [facility] Azithromycin (Zithromax) 500 mg PO 2300 [facility] [facility] Last Admin: 10/16/20 22:31 Dose: 500 mg Documented by: Calcium Polycarbophil (Fibercon) 1,250 mg PO BID [facility] Last Admin: 10/17/20 09:39 Dose: 1,250 mg Documented by: Cholecalciferol (Vitamin D3) 50 mcg PO DAILY [facility] Last Admin: 10/17/20 09:40 Dose: 50 mcg Documented by: Clopidogrel Bisulfate (Plavix) 75 mg PO DAILY [facility] Last Admin: 10/15/20 11:24 Dose: Not Given Documented by: Clopidogrel Bisulfate (Plavix) 75 mg PO DAILY [facility] Last Admin: 10/17/20 09:39 Dose: 75 mg Documented by: Clopidogrel Bisulfate (Plavix) 75 mg PO ONETIME ONE Stop: 10/15/20 11:31 Last Admin: 10/15/20 11:29 Dose: 75 mg Documented by: Enoxaparin Sodium (Lovenox) 40 mg SUBCUT DAILY [facility] Last Admin: 10/15/20 09:44 Dose: 40 mg Documented by: Enoxaparin Sodium (Lovenox) 40 mg SUBCUT DAILY [facility] Last Admin: 10/17/20 09:37 Dose: 40 mg Documented by: Gabapentin (Neurontin) 300 mg PO BEDTIME [facility] Last Admin: 10/16/20 20:45 Dose: 300 mg Documented by: Guaifenesin/Phenylephrine HCl (Robitussin Dm) 10 ml PO TID@0700,1400,2100 PRN PRN Reason: Cough Sodium Chloride (Normal Saline) 1,000 mls @ 100 mls/hr IV ASDIRECTED [facility] Last Admin: 10/14/20 20:41 Dose: 100 mls/hr Documented by: Ceftriaxone Sodium 2 gm/ (Sodium Chloride) 100 mls @ 200 mls/hr IV Q24H [facility] Last Admin: 10/17/20 09:29 Dose: 200 mls/hr Documented by: Imipramine HCl (Imipramine Hcl) 25 mg PO QPM [facility] Last Admin: 10/16/20 18:02 Dose: 25 mg Documented by: Lactulose (Cephulac) 3.35 gm PO DAILY [facility] Last Admin: 10/17/20 09:37 Dose: 3.35 gm Documented by: Lidocaine (Aspercreme 4%) 1 each TOP DAILY PRN PRN Reason: Pain Last Admin: 10/15/20 09:46 Dose: 1 each Documented by: Magnesium Oxide (Magnesium Oxide) 400 mg PO DAILY [facility] Last Admin: 10/17/20 09:40 Dose: 400 mg Documented by: Metoprolol Succinate (Toprol Xl) 50 mg PO DAILY [facility] Last Admin: 10/15/20 11:23 Dose: Not Given Documented by: Metoprolol Succinate (Toprol Xl) 50 mg PO DAILY [facility] Last Admin: 10/17/20 09:38 Dose: 50 mg Documented by: Metoprolol Succinate (Toprol Xl) 50 mg PO ONETIME ONE Stop: 10/15/20 11:31 Last Admin: 10/15/20 11:28 Dose: 50 mg Documented by: Miscellaneous Information (Remove Patch) 1 ea TRDERM DAILY PRN PRN Reason: REMOVE PATCH Last Admin: 10/15/20 21:46 Dose: 1 ea Documented by: Multivitamins (Thera) 1 each PO DAILY [facility] Last Admin: 10/17/20 09:40 Dose: 1 each Documented by: Non-Formulary Medication (Clotrimazole) 1 dose TOP BID [facility] Last Admin: 10/15/20 11:21 Dose: Not Given Documented by: Ondansetron HCl (Zofran) 4 mg IV Q6H PRN PRN Reason: Nausea/Vomiting Potassium Chloride (Klor-Con M20) 20 meq PO DAILY [facility] Potassium Chloride (Klor-Con M20) 40 meq PO BID [facility] Stop: 10/16/20 21:01 Last Admin: 10/16/20 20:44 Dose: 40 meq Documented by: Sertraline HCl (Zoloft) 100 mg PO DAILY [facility] Last Admin: 10/17/20 09:38 Dose: 100 mg Documented by:
[2020-10-17] MEDS: cefTRIAXone 2 GM in Sodium Chloride 0.9% 100 ML IV SCH (09:29)
[2020-10-17] MEDS: Lactulose Soln 10 GM/15 ML 30 ML UD Cup PO SCH (09:37)
[2020-10-17] MEDS: Enoxaparin 40 MG/0.4 ML Syringe SUBCUT SCH (09:37)
[2020-10-17] MEDS: Sertraline 50 MG Tab PO SCH (09:38)
[2020-10-17] MEDS: Metoprolol Succinate 25 MG Tab.ER PO SCH (09:38)
[2020-10-17] MEDS: Calcium Polycarbophil 625 MG Tab PO SCH (09:39)
[2020-10-17] MEDS: Clopidogrel 75 MG Tab PO SCH (09:39)
[2020-10-17] MEDS: Multivitamins,Therapeutic Tab PO SCH (09:40)
[2020-10-17] MEDS: Anastrozole 1 MG Tab PO SCH (09:40)
[2020-10-17] MEDS: Cholecalciferol (Vitamin D3) 25 MCG Tab PO SCH (09:40)
[2020-10-17] MEDS: Magnesium Oxide 400 MG Tab PO SCH (09:40)
[2020-10-17 13:47] VITALS: BP 112/77; PULSE 102
== END 2020-10-17 13:10 | disposition other institution (70) | DRG 194 ==
LOC: JD.ED 18:59 → JD.MS 23:27 → OBSVTOIN 10-15 08:11
PROVIDERS: ADMIT Family Medicine; ATTEND Family Medicine
PROC: 8E0ZXY6 Isolation (ICD-10-PCS; principal; 2020-10-15)
DX: J18.9 Pneumonia, unspecified organism (principal); R53.1 Weakness; I69.951 Hemiplegia and hemiparesis following unspecified cerebrovascular disease affecting right dominant side; C34.90 Malignant neoplasm of unspecified part of unspecified bronchus or lung; E78.5 Hyperlipidemia, unspecified; I10 Essential (primary) hypertension; Z86.73 Personal history of transient ischemic attack (TIA), and cerebral infarction without residual deficits; R32 Unspecified urinary incontinence; E87.6 Hypokalemia; I77.819 Aortic ectasia, unspecified site; J43.9 Emphysema, unspecified; Z90.10 Acquired absence of unspecified breast and nipple; M81.0 Age-related osteoporosis without current pathological fracture; Z79.02 Long term (current) use of antithrombotics/antiplatelets; M19.90 Unspecified osteoarthritis, unspecified site; F41.9 Anxiety disorder, unspecified; Z85.3 Personal history of malignant neoplasm of breast; Z85.118 Personal history of other malignant neoplasm of bronchus and lung; Z90.12 Acquired absence of left breast and nipple; Z87.891 Personal history of nicotine dependence; Z98.890 Other specified postprocedural states; Z79.82 Long term (current) use of aspirin; Z79.899 Other long term (current) drug therapy; Z20.828 Contact with and (suspected) exposure to other viral communicable diseases
CPT/HCPCS: 0240U; 36415; 71045; 71275; 80048; 80053; 81001; 82306; 83605; 83735; 84443; 85007; 85025; 85027; 85379; 86140; 86738; 87040; 87070; 87205; 87641; 87899; 93005; 94667; 96365; 96372; 97110; 97116; 97162; 97165; 97530; 97535; 99285; 87106; 93010; 99284; A9270-GY; G0378; J0696; J1650; J7030; J7050

== ENCOUNTER 2020-11-15 07:38 | Emergency (ER) | payer MEDICARE, BC ==
--- NOTE | 2020-11-15 07:58 | EDM.PDOC ---
ED HPI GENERAL MEDICAL PROBLEM - General Chief Complaint: Neuro Symptoms/Deficits Stated Complaint: [facility] Time Seen by Provider: 11/15/20 07:38 Source of Information: Reports: Patient, EMS, Family (Daughter reported that she seemed to be much more weak today.) History Limitations: Reports: No Limitations - History of Present Illness INITIAL COMMENTS - FREE TEXT/NARRATIVE: 80-year-old female presents to the ED per [facility]. Apparently she is a patient at [facility] and is out on pass with her daughter for the weekend. Upon awakening this morning was felt that she was exhibiting increased weakness and difficulty with her balance. Patient has had a previous CVA with left-sided hemiparesis. Speech is normal. She is alert oriented and answers a ll questions appropriately. Is unclear exactly why she is in the ED. Apparently there is some increased weakness but it is unclear where this weakness occurred from. Daughter is on her way in to provide further information. Exam reveals a irregular irregular heartbeat with frequent ectopic beats. Heart rate was estimated to be about 110/min. Initial O2 sats were low at 90% once we removed some of her nail comoran O2 sats improved to 95%. Initial BP was 101/69. Of note the patient is on sedative medications sertraline 100 mg at bedtime with gabapentin 300 mg at bedtime and imipramine 25 mg in the evening. Daughter is here now and indicates that when they got her up to the bathroom this morning I she usually is able to ambulate fairly well with her left leg in spite of a dense hemiparesis of the left upper extremity. But she almost froze in place and she could not walk. At 1 point they had her letter down to the floor which time they made the decision to call for the ambulance. Patient has no history of diabetes. There are states that there was some suggestion of a low-grade fever last evening. Onset: Today, Unknown/Unsure Duration: Minutes: Location: Reports: Generalized (Seem to have sense of generalized weakness with difficulty ambulating as per her norm. Seem to freeze in place and not be able to move her feet normally.) Quality: Reports: Other (Difficulty walking this morning) Severity: Moderate Improves with: Reports: None Worsens with: Reports: None Context: Reports: Other (Therefore the ambulance was called). Denies: Activity, Exercise, Lifting, Sick Contact, Trauma Associated Symptoms: Reports: Confusion, Malaise, Weakness. Denies: Chest Pain, Cough, cough w sputum, Diaphoresis, Fever/Chills, Headaches, Loss of Appetite, Nausea/Vomiting, Rash, Seizure, Shortness of Breath, Syncope Treatments PROJECT ASSISTANT: Reports: Other (see below) (She does not believe any recent medication changes have been ordered) - Related Data Allergies Allergy/AdvReac Type Severity Reaction Status Date / Time No Known Allergies Allergy Verified 11/15/20 08:14 Home Meds: Home Meds Gabapentin 300 mg PO BEDTIME 06/01/16 [History] Clopidogrel Bisulfate [Clopidogrel] 75 mg PO DAILY 01/04/19 [History] Rosuvastatin [Crestor] 20 mg PO DAILY 01/04/19 [History] Sertraline [Zoloft] 100 mg PO DAILY 01/04/19 [History] Aspirin 81 mg PO BEDTIME 10/16/19 [History] Fish Oil/Borage/Flax/Om3,6,9 1 [[place] 3-6-9 Complex Softgel] 1 tab PO DAILY 10/16/19 [History] Metoprolol Succinate [Toprol Xl] 50 mg PO DAILY 10/16/19 [History] Multivitamin [Multivitamins] 1 cap PO DAILY 10/16/19 [History] Potassium Chloride 20 meq PO DAILY #30 tablet.er 09/27/20 [Rx] Acetaminophen [Pain Relief] 650 mg PO ASDIRECTED PRN 10/14/20 [History] Clotrimazole [Clotrimazole 1%] 1 dose TOP BID 10/14/20 [History] Imipramine HCl [Imipramine] 25 mg PO QPM 10/14/20 [History] Lactulose [Generlac] 5 ml PO DAILY 10/14/20 [History] Lidocaine [Aspercreme Lidocaine] 1 applic TOP DAILY PRN 10/14/20 [History] Magnesium Oxide 400 mg PO DAILY 10/14/20 [History] Anastrozole [Arimidex] 1 mg PO DAILY 10/15/20 [History] Calcium Carbonate [Tums] 400 mg PO 6XDAY PRN MDD 15 tabs 10/15/20 [History] Cholecalciferol (Vitamin D3) [Vitamin D3] 2,000 unit PO DAILY 10/15/20 [History] calcium polycarbophiL [Fiber Tabs] 1,250 mg PO BID 10/15/20 [History] cephALEXin [Keflex] 500 mg PO Q8H #12 capsule 10/17/20 [Rx] Cefdinir [Omnicef] 300 mg PO BID #16 cap 11/15/20 [Rx] Past Medical History HEENT History: Reports: Impaired Vision Other HEENT History: wears glasses Cardiovascular History: Reports: High Cholesterol, Hypertension Respiratory History: Reports: COPD Gastrointestinal History: Reports: None Genitourinary History: Reports: Urinary Incontinence DIGITAL PHOTO PRINTER 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 Had a total left-sided mastectomy and lymph node dissection and required no chemotherapy or radiation.), Lung (Patient had to pulmonary nodules identified on CT scan after breast cancer. The one in the left side was malignant. It was felt to be completely excised and no further treatment was given. She also had a tumor removed from the right lung which apparently was benign. She did not have any radiation to the right lung field or pleurodesis.) - Infectious Disease History Infectious Disease History: Reports: Chicken Pox, Measles, Mumps, Novel Coronavirus - Past Surgical History Head Surgeries/Procedures: Reports: Craniotomy HEENT Surgical History: Reports: Cataract Surgery, Naso-Sinus Surgery Cardiovascular Surgical History: Reports: None Respiratory Surgical History: Reports: None GI Surgical History: Reports: Appendectomy, Cholecystectomy, Colonoscopy Female Surgical History: Reports: None Neurological Surgical History: Reports: Other (See Below) Other Neurological Surgeries/Procedures: coil Musculoskeletal Surgical History: Reports: Shoulder Surgery Other Musculoskeletal Surgeries/Procedures:: left arm rods Oncologic Surgical History: Reports: Mastectomy Other Oncologic Surgeries/Procedures: LEFT Social & Family History - Family History Family Medical History: No Pertinent Family History - Caffeine Use Caffeine Use: Reports: None - Living Situation & Occupation Living situation: Reports: , Assisted Living ([facility]) Occupation: Retired Social History Comment: Usually we resides at [facility] and is at her daughter's home on pass for the weekend. ED ROS GENERAL - Review of Systems Review Of Systems: See Below Constitutional: Reports: Malaise, Weakness (Difficulty ambulating to the bathroom this morning.), Fatigue. Denies: Fever, Chills HEENT: Reports: Glasses Respiratory: Reports: No Symptoms Cardiovascular: Reports: Blood Pressure Problem, Lightheadedness. Denies: Chest Pain, Claudication, Dyspnea on Exertion, Edema, Orthopnea (Blood pressure tends to run on the low side.), Palpitations Endocrine: Reports: Fatigue GI/Abdominal: Reports: Constipation (Occasional problems with constipation). Denies: Nausea, Stool Incontinence, Vomiting : Reports: Frequency, Incontinence (Urge and stress components) Musculoskeletal: Reports: Neck Pain, Shoulder Pain (Previous right shoulder surgery for arthritis.), Back Pain, Other (No artificial joints.) Skin: Reports: No Symptoms Neurological: Reports: Difficulty Walking, Other (Has a dense paresis of her left upper extremity with flexion contractures of all of her fingers wrist and elbow.). Denies: Confusion, Dizziness, Headache, Numbness, Tingling, Trouble Speaking Psychiatric: Reports: No Symptoms Hematologic/Lymphatic: Reports: No Symptoms Immunologic: Reports: No Symptoms ED EXAM, NEURO - Physical Exam Exam: See Below Exam Limited By: No Limitations General Appearance: Alert, WD/WN, No Apparent Distress, Other (Temperature is 36.3 heart rate 94 and irregularly irregular respiratory to 14 O2 sats were 95% and BP 101 61.) Eye Exam: Bilateral Eye: Normal Inspection, PERRL Throat/Mouth: Other. No: Normal Lips, Normal Teeth (Tongue is dry and but not coated. Lips are cracked and dry as well.) Head Exam: Atraumatic, Normocephalic, Other Neck: Normal Inspection (No outward signs of head or facial trauma.), Supple, Non-Tender, Full Range of Motion. No: Lymphadenopathy (L), Lymphadenopathy (R) Respiratory/Chest: No Respiratory Distress, Lungs Clear, Normal Breath Sounds, No Accessory Muscle Use, Other (Left breast is absent with well-healed mastectomy scar. Scar over right anterior shoulder as well.) Cardiovascular: Normal Peripheral Pulses, No Edema, No Gallop, No Murmur, No Rub, Irregularly Irregular ("Ectopic beats.). No: Regular Rate, Rhythm GI/Abdominal: Normal Bowel Sounds, Soft, Non-Tender, No Organomegaly, No Abnormal Bruit, No Mass, Pelvis Stable Neurological: Alert, Normal Mood/Affect, CN II-XII Intact, Normal Plantar Flexion, Oriented x 3. No: Normal Gait Back Exam: Normal Inspection, Full Range of Motion, Other Extremities: Normal Range of Motion, Non-Tender, No Pedal Edema (She required some help to sit to get to the sitting position due to left-sided hemiparesis.), Other Psychiatric: Normal Affect (No evidence of significant arthritis or limited range of motion of hips or knees.), Normal Mood Skin Exam: Warm, Dry, Intact, Normal Color, No Rash #1 Interpretation EKG Date: 11/15/20 Time: 07:58 Rhythm: Other (Sinus tachycardia at 100 to 110/min) Rate (Beats/Min): 100 (Oli supraventricular beats. Primarily premature atrial contractions) [place]: Normal P-Wave: Present QRS: Other (Decreased voltage limb leads.) ST-T: Other (Irregular baseline throughout the limb leads limits ability to interpret. T wave flattening in aVL) QT: Prolonged (Moderately prolonged) EKG Interpretation Comments: Abnormal ECG Course - Vital Signs Last Recorded V/S: Last Vital Signs Temp 35.9 C L 11/15/20 11:25 Pulse 82 11/15/20 11:25 Resp 16 11/15/20 11:25 BP 113/62 11/15/20 11:25 Pulse Ox 96 11/15/20 11:25 - Orders/Labs/Meds Orders: Active Orders 24 hr Category Date Time Status Insert Qiu Catheter [Insert Urinary Catheter] [OM.PC] Care 11/15/20 08:50 Ordered Stat CULTURE BLOOD [BC] Stat Lab 11/15/20 08:08 Received CULTURE BLOOD [BC] Stat Lab 11/15/20 08:30 Received Blood Culture x2 Reflex Set [OM.PC] Stat Oth 11/15/20 07:52 Ordered Labs: Laboratory Tests 11/15/20 11/15/20 11/15/20 Range/Units 08:08 08:08 08:08 WBC 9.20 (3.98-10.04) K/mm3 RBC 4.14 (3.98-5.22) M/mm3 Hgb 10.4 L (11.2-15.7) gm/dl Hct 33.1 L (34.1-44.9) % MCV 80.0 D (79.4-94.8) fl MCH 25.1 L (25.6-32.2) pg MCHC 31.4 L (32.2-35.5) g/dl RDW Std Deviation 43.0 (36.4-46.3) fL Plt Count 211 (182-369) K/mm3 MPV 9.4 (9.4-12.3) fl Neut % (Auto) 86.1 H (34.0-71.1) % Lymph % (Auto) 7.4 L (19.3-51.7) % [place] % (Auto) 6.0 (4.7-12.5) % Eos % (Auto) 0.3 L (0.7-5.8) Baso % (Auto) 0.1 (0.1-1.2) % Neut # (Auto) 7.92 H (1.56-6.13) K/mm3 Lymph # (Auto) 0.68 L (1.18-3.74) K/mm3 [place] # (Auto) 0.55 H (0.24-0.36) K/mm3 Eos # (Auto) 0.03 L (0.04-0.36) K/mm3 Baso # (Auto) 0.01 (0.01-0.08) K/mm3 PT 13.7 H (9.7-12.0) SECONDS INR 1.29 APTT (21.7-31.4) SECONDS Sodium 139 (136-145) mEq/L Potassium 3.7 (3.5-5.1) mEq/L Chloride 102 (98-107) mEq/L Carbon Dioxide 26 (21-32) mEq/L Anion Gap 14.7 (5-15) BUN 20 H (7-18) mg/dL Creatinine 1.0 (0.55-1.02) mg/dL Est Cr Clr Drug Dosing 39.20 mL/min Estimated GFR (MDRD) 53 (>60) mL/min BUN/Creatinine Ratio 20.0 H (14-18) Glucose 106 (83-115) mg/dL Calcium 9.1 (8.5-10.1) mg/dL Magnesium 1.8 (1.8-2.4) mg/dl Total Bilirubin 0.4 (0.2-1.0) mg/dL AST 15 (15-37) U/L ALT 15 (14-59) U/L Alkaline Phosphatase 72 (46-116) U/L Troponin I < 0.017 (0.00-0.056) ng/mL C-Reactive Protein 8.1 H* (<1.0) mg/dL NT-Pro-B Natriuret Pep (0-450) pg/mL Total Protein 7.4 (6.4-8.2) g/dl Albumin 3.1 L (3.4-5.0) g/dl Globulin 4.3 gm/dL Albumin/Globulin Ratio 0.7 L (1-2) Urine Color (Yellow) Urine Appearance (Clear) Urine pH (5.0-8.0) Ur Specific [place] (1.005-1.030) Urine Protein (Negative) Urine Glucose (UA) (Negative) Urine Ketones (Negative) Urine Occult Blood (Negative) Urine Nitrite (Negative) Urine Bilirubin (Negative) Urine Urobilinogen (0.2-1.0) Ur Leukocyte Esterase (Negative) Urine RBC (0-5) /hpf Urine WBC (0-5) /hpf Ur Squamous Epith Cells (0-5) /hpf Urine Bacteria (FEW) /hpf Urine Mucus (FEW) /hpf 11/15/20 11/15/20 11/15/20 Range/Units 08:08 08:08 08:50 WBC (3.98-10.04) K/mm3 RBC (3.98-5.22) M/mm3 Hgb (11.2-15.7) gm/dl Hct (34.1-44.9) % MCV (79.4-94.8) fl MCH (25.6-32.2) pg MCHC (32.2-35.5) g/dl RDW Std Deviation (36.4-46.3) fL Plt Count (182-369) K/mm3 MPV (9.4-12.3) fl Neut % (Auto) (34.0-71.1) % Lymph % (Auto) (19.3-51.7) % [place] % (Auto) (4.7-12.5) % Eos % (Auto) (0.7-5.8) Baso % (Auto) (0.1-1.2) % Neut # (Auto) (1.56-6.13) K/mm3 Lymph # (Auto) (1.18-3.74) K/mm3 [place] # (Auto) (0.24-0.36) K/mm3 Eos # (Auto) (0.04-0.36) K/mm3 Baso # (Auto) (0.01-0.08) K/mm3 PT (9.7-12.0) SECONDS INR APTT 26.7 (21.7-31.4) SECONDS Sodium (136-145) mEq/L Potassium (3.5-5.1) mEq/L Chloride (98-107) mEq/L Carbon Dioxide (21-32) mEq/L Anion Gap (5-15) BUN (7-18) mg/dL Creatinine (0.55-1.02) mg/dL Est Cr Clr Drug Dosing mL/min Estimated GFR (MDRD) (>60) mL/min BUN/Creatinine Ratio (14-18) Glucose (83-115) mg/dL Calcium (8.5-10.1) mg/dL Magnesium (1.8-2.4) mg/dl Total Bilirubin (0.2-1.0) mg/dL AST (15-37) U/L ALT (14-59) U/L Alkaline Phosphatase (46-116) U/L Troponin I (0.00-0.056) ng/mL C-Reactive Protein (<1.0) mg/dL NT-Pro-B Natriuret Pep 774 H (0-450) pg/mL Total Protein (6.4-8.2) g/dl Albumin (3.4-5.0) g/dl Globulin gm/dL Albumin/Globulin Ratio (1-2) Urine Color Yellow (Yellow) Urine Appearance Clear (Clear) Urine pH 7.0 (5.0-8.0) Ur Specific [place] 1.025 (1.005-1.030) Urine Protein 1+ H (Negative) Urine Glucose (UA) Negative (Negative) Urine Ketones Negative (Negative) Urine Occult Blood Negative (Negative) Urine Nitrite Negative (Negative) Urine Bilirubin Negative (Negative) Urine Urobilinogen 0.2 (0.2-1.0) Ur Leukocyte Esterase Negative (Negative) Urine RBC 0-5 (0-5) /hpf Urine WBC Not seen (0-5) /hpf Ur Squamous Epith Cells 0-5 (0-5) /hpf Urine Bacteria Few (FEW) /hpf Urine Mucus Not seen (FEW) /hpf Meds: Medications Discontinued Medications Generic Name Dose Route Start Last Admin Trade Name Rudolph PRN Reason Stop Dose Admin Dextrose/Sodium Chloride 1,000 mls @ 150 mls/hr 11/15/20 08:00 11/15/20 08:57 Dextrose 5%-Normal Saline IV 150 mls/hr ASDIRECTED ANGEL Administration Ceftriaxone Sodium 1 gm/ 100 mls @ 200 mls/hr 11/15/20 09:59 11/15/20 10:06 Sodium Chloride IV 11/15/20 10:28 200 mls/hr ONETIME ONE Administration - Radiology Interpretation Free Text/Narrative:: 80-year-old female presents to the ED per [facility] from her daughter's home. She is out on pass for the weekend from [facility] and had difficulty walking from the bedroom to the bathroom this morning. Was like she froze in place for a period of time and then could not walk any further and the family therefore let her go down to the floor. This is when they called the ambulance. Patient has a known hemiparesis of her left upper extremity with mild left-sided leg weakness but usually does ambulate. Her blood pressure was low upon arrival at 101/62. Heart rate is showing sinus tachycardia with frequent premature atrial contractions lungs are clear. History suggest past breast cancer treated with mastectomy only 2 years ago. Recently diagnosed with a tumor in one of her lungs of unclear etiology i.e. primary tumor versus metastatic. At this time she will receive IV fluids D5 normal saline at 150 mils per hour. Routine labs will be collected. CT head will also be done. Routine labs were ordered. - Re-Assessments/Exams Free Text/Narrative Re-Assessment/Exam: 11/15/20 09:02 Total white count is 9.20. Auto differential shows 86.1% neutrophils. Hemoglobin is 10.4 with hematocrit of 33.1 platelet count 211,000. PT is 13.7 slightly elevated with an elevated INR of 1.29. PTT is 26.7. Sodium is 139 with potassium 3.7 chloride 102 with a bicarb of 26. Anion gap is 14.7. BUN is 20 with a creatinine of 1.0 glucose of 106 calcium 9.1 magnesium 1.8 liver function normal troponin I is less than 0.017 C-reactive protein 8.1 BNP is slightly elevated at 774. Total protein 7.4. Albumin is 3.1. Urinalysis is pending. 11/15/20 09:06 chest x-ray done portably reveals an infiltrate in the right lower lobe adjacent to the heart border which appears to be scar tissue or fibrosis. Cannot rule out an underlying pneumonia however. CT of the head is also been completed without contrast. The ventricles along with basal cisterns and sulci over the convexities are prominent. Low-density lesion is seen within the left thalamus causing mass-effect upon the ventricular system which is a stable finding. Scattered areas of diminished density are noted within the periventricular and subcortical white matter which is most likely due to small vessel ischemic demyelination change. Old lacunar infarct is noted within the right thalamus. Evidence of prior aneurysm repair with artifact causing metallic density. No evidence of intracranial hemorrhage. Very slight midline shift is seen by about 3 mm which again is a stable finding. Bone window settings were reviewed which showed no acute osseous finding. There is very slight mucosal thickening within the ethmoid sinuses with nothing acute being seen. Mastoid sinuses show nothing acute. 11/15/20 09:19 Urinalysis is back. 1+ proteinuria leukocyte esterase was negative. Micro is pending 11/15/20 09:29 The micro on the urinalysis is normal as well. 11/15/20 09:51 with the daughter at length who Shanae is staying with at this time. We got the patient up and walked her outside the her room in the hallway and she did actually fairly well with a shuffling type gait. 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 I am awaiting a report from radiology on the streak artifact and I suspect pulmonary fibrosis in the right lower lung vs an early pneumonia. 11/15/20 09:53 The over read of the chest x-ray by radiologist reveals increased density within the medial right lung base or right middle lobe most likely representing a pneumonia probable diffuse emphysematous changes. Old surgery within the proximal left humerus appreciated. Patient will therefore be given a dose of Rocephin 2 g IV for early pneumonia right lower lobe. She will be discharged on Omnicef 300 mg twice daily for the next 8 days. Daughter indicates with her stairs in her home she will return her mom back to [facility] versus taking her back to her home for the weekend. 11/15/20 10:57: She has completed her IV Rocephin. She will therefore be discharged in the care of her daughter. They are going to make a decision with between herself and her sister as to whether to take mom back home or return her to [facility]. Departure - Departure Time of Disposition: 10:58 Disposition: Home, Self-Care 01 Condition: Fair Clinical Impression: Generalized muscle weakness, Left-sided weakness, History of CVA with residual deficit, History of breast cancer, History of mastectomy, Generalized weakness Right lower lobe pneumonia Qualifiers: Pneumonia type: due to unspecified organism Qualified Code(s): J18.9 - Pneumonia, unspecified organism - Discharge Information *PRESCRIPTION DRUG MONITORING PROGRAM REVIEWED*: Not Applicable *COPY OF PRESCRIPTION DRUG MONITORING REPORT IN PATIENT FRANCISCA: Not Applicable Prescriptions: Cefdinir [Omnicef] 300 mg PO BID #16 cap Instructions: Weakness, [id number], Community-Acquired Pneumonia, Adult, [id number] Referrals: Eliot Samuels MD [Primary Care Provider] - Forms: ED Department Discharge Additional Instructions: Evaluation in the emergency room this morning in regards to generalized weakness with difficulty walking. It appeared to be primarily the left leg that was not functioning normally. Perhaps transient confusion spell as well. Evaluation in the emergency room revealed no changes in CT scan of the brain. Old infarcts of course are present in the thalamus on the right side. Low-density lesion is seen within the left thalamus causing mass-effect upon the ventricular system which is a stable finding. No acute changes were appreciated on CT in comparison to others. Chest x-ray revealed increased density within the right medial lung base or right middle lobe most likely representing pneumonia. For first dose of antibiotic was administered intravenously in the ED Rocephin 1 g. You will need to start oral antibiotic Omnicef 300 mg twice daily starting tomorrow morning and take this for the next 8 days to clear up pneumonia. Follow-up chest x-ray is indicated in clinic in 14 days time. Sepsis Event Note (ED) - Focused Exam Vital Signs: Vital Signs Temp Pulse Resp BP Pulse Ox 11/15/20 11:25 35.9 C L 82 16 113/62 96 11/15/20 07:38 36.3 C 94 14 101/61 95 - My Orders Last 24 Hours: My Active Orders 11/15/20 07:52 Blood Culture x2 Reflex Set [OM.PC] Stat 11/15/20 08:08 CULTURE BLOOD [BC] Stat 11/15/20 08:30 CULTURE BLOOD [BC] Stat 11/15/20 08:50 Insert Qiu Catheter [Insert Urinary Catheter] [OM.PC] Stat - Assessment/Plan Last 24 Hours: My Active Orders 11/15/20 07:52 Blood Culture x2 Reflex Set [OM.PC] Stat 11/15/20 08:08 CULTURE BLOOD [BC] Stat 11/15/20 08:30 CULTURE BLOOD [BC] Stat 11/15/20 08:50 Insert Qiu Catheter [Insert Urinary Catheter] [OM.PC] Stat
[2020-11-15] MEDS ORDERED: Dextrose 5%-0.9% NaCl 1,000 ML IV SCH (08:00)
--- NOTE | 2020-11-15 09:04 | CT ---
Head CT Technique: Multiple axial sections through the brain were obtained. Intravenous contrast was not utilized. Comparison: Prior head CT study of 09/27/20. Findings: Ventricles along with basal cisterns and sulci over the convexities are prominent. Low density lesion is seen within the left thalamus causing mass-effect upon the ventricular system which is a stable finding. Scattered areas of diminished density are noted within the periventricular and subcortical white matter which is most likely due to small vessel ischemic demyelination change. Old lacunar infarct is noted within the right thalamus. Evidence of prior aneurysm repair with artifact causing metallic density. No evidence of intracranial hemorrhage. Very slight midline shift is seen by about 3 mm which is a stable finding. Bone window settings were reviewed which show no acute osseous finding. There is very slight mucosal thickening within the ethmoid sinuses with nothing acute being seen. Mastoid sinuses show nothing acute. Impression: 1. Previous aneurysm repair. 2. Left-sided cystic lesion as described above which is stable. 3. Senescent change as noted. Nothing acute is definitely appreciated. Diagnostic code #2
[2020-11-15] MEDS ORDERED: cefTRIAXone 1 GM in Sodium Chloride 0.9% 100 ML IV ONE (09:59)
--- NOTE | 2020-11-15 10:09 | CR ---
Chest: Portable view of the chest was obtained. Comparison: Prior chest x-ray of 10/14/[address] also performed on 10/14/20. Findings: Increased density is noted within the right lung base adjacent to the heart. Lungs are slightly hyperinflated suggesting mild emphysematous change. Lungs otherwise are clear. Prior left proximal surgery is noted within the humerus. Heart size and mediastinum are normal. Impression: 1. Increased density within the medial right lung base or right middle lobe most likely representing pneumonia. 2. Probable emphysematous change. 3. Old surgery within the proximal left humerus. Diagnostic code #3
[2020-11-15 11:32] VITALS: BP 113/62; PULSE 82
== END 2020-11-15 11:25 | disposition home or self-care (01) ==
LOC: JD.ED 07:38
DX: J18.9 Pneumonia, unspecified organism (principal); I69.354 Hemiplegia and hemiparesis following cerebral infarction affecting left non-dominant side; I10 Essential (primary) hypertension; J44.9 Chronic obstructive pulmonary disease, unspecified; E78.00 Pure hypercholesterolemia, unspecified; R79.89 Other specified abnormal findings of blood chemistry; Z85.3 Personal history of malignant neoplasm of breast; Z79.02 Long term (current) use of antithrombotics/antiplatelets; Z79.82 Long term (current) use of aspirin; Z79.899 Other long term (current) drug therapy
CPT/HCPCS: 36415; 70450; 71045; 80053; 81001; 83735; 83880; 84484; 85025; 85610; 85730; 86140; 87040; 93005; 96365; 99285; J0696; J7042; 93010

== ENCOUNTER 2020-12-05 19:35 | Inpatient (IN) | payer MEDICARE, BC ==
--- NOTE | 2020-12-05 20:27 | EDM.PDOC ---
ED HPI GENERAL MEDICAL PROBLEM - General Chief Complaint: Neuro Symptoms/Deficits Stated Complaint: [facility] Time Seen by Provider: 12/05/20 19:40 Source of Information: Reports: Patient, EMS History Limitations: Reports: Other (Patient is a poor historian - may have dementia) - History of Present Illness INITIAL COMMENTS - FREE TEXT/NARRATIVE: A stroke alert was called for this patient. Mrs. Santana is a very pleasant 80-year-old woman who is now brought to the ED by EMS after suffering an unwitnessed fall at her home at [facility]. She was apparently found by staff with her head leaning against something wood, presumably furniture. 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 The patient acknowledges that she falls fairly often, perhaps about once a week, and that the frequency has likely been increasing recently. Medical records indicate that the patient has been seen in this ED related to generalized weakness and balance issues at least twice previously. Here in the ED, the patient is initially found to be slightly tachycardic at 106 bpm, otherwise, she is hemodynamically stable, afebrile, saturating 97% on room air. The patient denies being in any pain, including having a headache, neck pain, wrist pain, buttock pain, or knee pain. Other than her frequent falls, the patient denies having a recent fever, chills, sore throat, ear pain, nasal or sinus congestion, cough, dyspnea, chest pain, palpitations, nausea, vomiting, constipation, diarrhea, abdominal pain, urinary symptoms, recent weight gain or weight loss, recent bloody bowel movements or black bowel movements, recent joint aches, headaches, or rashes. The patient's PCP is Dr. Eliot Foley. She does not recall the name of her Neurologist. Her Oncologist is Dr. Domenico Simental. She already received an influenza vaccine this season. - Related Data Allergies Allergy/AdvReac Type Severity Reaction Status Date / Time No Known Allergies Allergy Verified 11/15/20 08:14 Home Meds: Home Meds Gabapentin 300 mg PO BEDTIME 06/01/16 [History] Clopidogrel Bisulfate [Clopidogrel] 75 mg PO DAILY 01/04/19 [History] Rosuvastatin [Crestor] 20 mg PO BEDTIME 01/04/19 [History] Sertraline [Zoloft] 100 mg PO DAILY 01/04/19 [History] Aspirin 81 mg PO DAILY 10/16/19 [History] Metoprolol Succinate [Toprol Xl] 50 mg PO DAILY 10/16/19 [History] Multivitamin [Multivitamins] 1 cap PO DAILY 10/16/19 [History] Potassium Chloride 20 meq PO DAILY #30 tablet.er 09/27/20 [Rx] Acetaminophen [Pain Relief] 650 mg PO ASDIRECTED PRN 10/14/20 [History] Clotrimazole [Clotrimazole 1%] 1 dose TOP BID 10/14/20 [History] Imipramine HCl [Imipramine] 25 mg PO QPM 10/14/20 [History] Lidocaine [Aspercreme Lidocaine] 1 applic TOP DAILY PRN 10/14/20 [History] Anastrozole [Arimidex] 1 mg PO DAILY 10/15/20 [History] Calcium Carbonate [Tums] 400 mg PO 6XDAY PRN MDD 15 tabs 10/15/20 [History] calcium polycarbophiL [Fiber Tabs] 1,250 mg PO BID 10/15/20 [History] Cholecalciferol (Vitamin D3) [Vitamin D3] 4,000 unit PO DAILY 12/05/20 [History] Ferrous Sulfate 325 mg PO BID 12/05/20 [History] Fish Oil/[place]-3 Fatty Acids [Fish Oil 1,000 MG] 1,000 mg PO DAILY 12/05/20 [History] Iron,Carbonyl/Ascorbic Acid [Vitron-C Tablet] 1 tab PO DAILY 12/05/20 [History] Megestrol [Megace] 20 mg PO DAILY 12/05/20 [History] Neomycin/Bacitracin/Polymyxinb [Antibiotic Ointment] 1 applic TOP ASDIRECTED PRN 12/05/20 [History] Past Medical History HEENT History: Reports: Impaired Vision (wears glasses) Cardiovascular History: Reports: High Cholesterol, Hypertension Respiratory History: Reports: COPD (suspected, not tested) Genitourinary History: Reports: Urinary Incontinence Musculoskeletal History: Reports: Osteoarthritis, Osteoporosis Neurological History: Reports: Cerebral Aneurysms (s/p SAH requiring clipping, 2004), Other (See Below) (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 Dementia.) Psychiatric History: Reports: Anxiety Oncologic (Cancer) History: Reports: Breast (;eft, s/p mastectomy), Lung - Infectious Disease History Infectious Disease History: Reports: Chicken Pox, Measles, Mumps, Novel Coronavirus - Past Surgical History Head Surgeries/Procedures: Reports: Craniotomy (for aneurismal clipping, 2004) HEENT Surgical History: Reports: Cataract Surgery (bilateral), Naso-Sinus Surgery GI Surgical History: Reports: Appendectomy, Cholecystectomy (around 2009), Colonoscopy Musculoskeletal Surgical History: Reports: Shoulder Surgery (bilateral open) Other Musculoskeletal Surgeries/Procedures:: left arm rods Oncologic Surgical History: Reports: Mastectomy (left) Social & Family History - Tobacco Use Tobacco Use Status *Q: Former Tobacco User Years of Tobacco use: 35 Packs/Tins Daily: 3 Month/Year Tobacco Last Used: Quit 1994 - Caffeine Use Caffeine Use: Reports: None - Alcohol Use Alcohol Use History: No - Recreational Drug Use Recreational Drug Use: No - Living Situation & Occupation Living situation: Reports: , Alone, Assisted Living ([facility]) Occupation: Retired ED ROS GENERAL - Review of Systems Review Of Systems: Comprehensive ROS is negative, except as noted in HPI. ED EXAM, NEURO - Physical Exam Exam: See Below Exam Limited By: Other (The patient has difficulty either understanding or following instructions) General Appearance: Alert, No Apparent Distress, Thin Eye Exam: Bilateral Eye: EOMI, PERRL Ears: Normal External Exam, Hearing Grossly Normal Nose: Normal Inspection Throat/Mouth: Normal Inspection, Normal Lips, Normal Voice, No Airway Compromise Head Exam: Atraumatic, Normocephalic Neck: Normal Inspection, Supple, Non-Tender, Full Range of Motion Respiratory/Chest: No Respiratory Distress, Lungs Clear, Normal Breath Sounds, No Accessory Muscle Use Cardiovascular: Normal Peripheral Pulses, Regular Rate, Rhythm, No Edema, No Gallop, No JVD, No Murmur, No Rub GI/Abdominal: Normal Bowel Sounds, Soft, Non-Tender, No Organomegaly, No Distention, No Abnormal Bruit, No Mass Neurological: Alert, Oriented x 3, Other (Left hemiparesis, including left upper extremity spasticity) Back Exam: Normal Inspection, Full Range of Motion, NT Extremities: Normal Inspection, Normal Range of Motion, Normal Capillary Refill Psychiatric: Normal Affect Skin Exam: Warm, Dry, Intact, Normal Color, No Rash #1 Interpretation EKG Date: 12/05/20 Time: 20:11 Rhythm: Other (Sinus tachycardia) Rate (Beats/Min): 109 [place]: Normal P-Wave: Present QRS: Normal ST-T: Normal QT: Normal Comparison: Change From Previous EKG (Had supraventricular bigeminy on 11/15/2020) Course - Vital Signs Last Recorded V/S: Last Vital Signs Temp 36.6 C 12/06/20 01:44 Pulse 93 12/06/20 01:44 Resp 16 12/05/20 21:48 BP 91/50 L 12/06/20 01:44 Pulse Ox 93 L 12/06/20 01:44 - Orders/Labs/Meds Orders: Active Orders 24 hr Category Date Time Status EKG Documentation Completion [RC] STAT Care 12/05/20 19:41 Active Chest 1V Frontal [CR] Stat Exams 12/05/20 19:41 Taken Head wo Cont [CT] Stat Exams 12/05/20 19:40 Taken Labs: Laboratory Tests 12/05/20 12/05/20 12/05/20 Range/Units 19:43 20:17 20:17 WBC 12.99 H (3.98-10.04) K/mm3 RBC 4.00 (3.98-5.22) M/mm3 Hgb 9.7 L (11.2-15.7) gm/dl Hct 30.8 L (34.1-44.9) % MCV 77.0 L D (79.4-94.8) fl MCH 24.3 L (25.6-32.2) pg MCHC 31.5 L (32.2-35.5) g/dl RDW Std Deviation 43.5 (36.4-46.3) fL Plt Count 169 L (182-369) K/mm3 MPV 11.1 (9.4-12.3) fl Neutrophils % (Manual) 91 H (40-60) % Band Neutrophils % 5 (0-10) % Lymphocytes % (Manual) 1 L (20-40) % Atypical Lymphs % 0 % Monocytes % (Manual) 3 (2-10) % Eosinophils % (Manual) 0 L (0.7-5.8) % Basophils % (Manual) 0 L (0.1-1.2) Platelet Estimate Adequate Hypochromasia 1+ slight Microcytosis 2+ moderate Ovalocytes 1+ slight RBC Morph Comment Not Reportable Sodium 140 (136-145) mEq/L Potassium 3.9 (3.5-5.1) mEq/L Chloride 103 (98-107) mEq/L Carbon Dioxide 20 L (21-32) mEq/L Anion Gap 20.9 H (5-15) BUN 26 H (7-18) mg/dL Creatinine 1.1 H (0.55-1.02) mg/dL Est Cr Clr Drug Dosing TNP Estimated GFR (MDRD) 48 (>60) mL/min BUN/Creatinine Ratio 23.6 H (14-18) Glucose 112 (83-115) mg/dL POC Glucose 111 H (83-110) mg/dL Calcium 8.9 (8.5-10.1) mg/dL Magnesium 1.6 L (1.8-2.4) mg/dl Total Bilirubin 0.4 (0.2-1.0) mg/dL AST 19 (15-37) U/L ALT 17 (14-59) U/L Alkaline Phosphatase 70 (46-116) U/L Troponin I < 0.017 (0.00-0.056) ng/mL Total Protein 7.0 (6.4-8.2) g/dl Albumin 2.8 L (3.4-5.0) g/dl Globulin 4.2 gm/dL Albumin/Globulin Ratio 0.7 L (1-2) Urine Color (Yellow) Urine Appearance (Clear) Urine pH (5.0-8.0) Ur Specific [place] (1.005-1.030) Urine Protein (Negative) Urine Glucose (UA) (Negative) Urine Ketones (Negative) Urine Occult Blood (Negative) Urine Nitrite (Negative) Urine Bilirubin (Negative) Urine Urobilinogen (0.2-1.0) Ur Leukocyte Esterase (Negative) U Hyaline Cast (Auto) (0-5) /lpf Urine RBC (0-5) /hpf Urine WBC (0-5) /hpf Ur Squamous Epith Cells (0-5) /hpf Urine Bacteria (FEW) /hpf Urine Mucus (FEW) /hpf 12/05/20 Range/Units 20:41 WBC (3.98-10.04) K/mm3 RBC (3.98-5.22) M/mm3 Hgb (11.2-15.7) gm/dl Hct (34.1-44.9) % MCV (79.4-94.8) fl MCH (25.6-32.2) pg MCHC (32.2-35.5) g/dl RDW Std Deviation (36.4-46.3) fL Plt Count (182-369) K/mm3 MPV (9.4-12.3) fl Neutrophils % (Manual) (40-60) % Band Neutrophils % (0-10) % Lymphocytes % (Manual) (20-40) % Atypical Lymphs % % Monocytes % (Manual) (2-10) % Eosinophils % (Manual) (0.7-5.8) % Basophils % (Manual) (0.1-1.2) Platelet Estimate Hypochromasia Microcytosis Ovalocytes RBC Morph Comment Sodium (136-145) mEq/L Potassium (3.5-5.1) mEq/L Chloride (98-107) mEq/L Carbon Dioxide (21-32) mEq/L Anion Gap (5-15) BUN (7-18) mg/dL Creatinine (0.55-1.02) mg/dL Est Cr Clr Drug Dosing Estimated GFR (MDRD) (>60) mL/min BUN/Creatinine Ratio (14-18) Glucose (83-115) mg/dL POC Glucose (83-110) mg/dL Calcium (8.5-10.1) mg/dL Magnesium (1.8-2.4) mg/dl Total Bilirubin (0.2-1.0) mg/dL AST (15-37) U/L ALT (14-59) U/L Alkaline Phosphatase (46-116) U/L Troponin I (0.00-0.056) ng/mL Total Protein (6.4-8.2) g/dl Albumin (3.4-5.0) g/dl Globulin gm/dL Albumin/Globulin Ratio (1-2) Urine Color Debra H (Yellow) Urine Appearance Clear (Clear) Urine pH 6.0 (5.0-8.0) Ur Specific [place] 1.025 (1.005-1.030) Urine Protein 2+ H (Negative) Urine Glucose (UA) Negative (Negative) Urine Ketones 1+ H (Negative) Urine Occult Blood Negative (Negative) Urine Nitrite Negative (Negative) Urine Bilirubin 1+ H (Negative) Urine Urobilinogen 0.2 (0.2-1.0) Ur Leukocyte Esterase Negative (Negative) U Hyaline Cast (Auto) 0-5 (0-5) /lpf Urine RBC Not seen (0-5) /hpf Urine WBC 0-5 (0-5) /hpf Ur Squamous Epith Cells 0-5 (0-5) /hpf Urine Bacteria Few (FEW) /hpf Urine Mucus Few (FEW) /hpf Meds: Medications Discontinued Medications Generic Name Dose Route Start Last Admin Trade Name Freq PRN Reason Stop Dose Admin Acetaminophen 650 mg 12/05/20 21:36 12/05/20 21:45 Tylenol PO 12/05/20 21:37 650 mg NOW ONE Administration Magnesium Sulfate 2 gm in 50 mls @ 25 mls/hr 12/05/20 21:17 12/05/20 21:30 Magnesium Sulfate In Water 2 Gm/50 Ml IV 12/05/20 23:16 25 mls/hr ONETIME ONE Administration - Re-Assessments/Exams Free Text/Narrative Re-Assessment/Exam: 12/05/20 20:23 As above, a stroke alert was called from the field after the patient was discovered on the floor with her head leaning against something wood (furniture?), And the finding of the patient being generally weak with both of her toes pointing downward, and somewhat confused. Her history, however, includes a left hemiparesis following a subarachnoid hemorrhage due to a bleeding cerebral aneurysm in 2004, as well as cortical basilar degeneration, which causes more global neurologic findings. Eyes having any pain or injury anywhere, including a headache. Her physical exam is remarkable for left hemiparesis with a contracted left upper extremity, and her difficulty following instructions. The patient was sent for CT scan immediately, and I have additionally ordered blood work, a portable chest x-ray, urinalysis, and an ECG. 12/05/20 20:26 CT of the head without contrast is read by [facility] as: 1. Unchanged cyst on the left between the lateral and third ventricles with possible compromise of the drainage through the foramina of [place]. The appearance is similar to the prior study. 2. No acute abnormality. 12/05/20 21:23 Portable chest radiograph reviewed. The cardiac silhouette is within normal lieberman its. No pulmonary vascular congestion. No pleural effusions seen on this AP view. No focal infiltrate. No pneumothorax. There is hyperinflation and bilateral diaphragmatic flattening, consistent with COPD. Decreased density of the lower left lung field due to left mastectomy. Mild thoracolumbar scoliosis. Left proximal humerus hardware noted. Formal read per the Radiologist pending. The patient's CBC is remarkable for mild leukocytosis of 12.99 with 5% bandemia, and mild anemia with an H/H of 9.7/30.8, and mild thrombocytopenia of 169,000, with the remainder of her CBC being unremarkable. Her CMP is remarkable for a bicarbonate slightly depressed at 20, with an anion gap mildly elevated at 20.9. Her BUN/Cr are mildly elevated at 26/1.1, with the remainder of her CMP being unremarkable. Her magnesium level is slightly depressed at 1.6. Her troponin is undetectably low. Results of the patient's urinalysis are still pending. Reviewing prior labs, I see that the patient's H/H was 10.4/33.1 on 11/15/2020. Based on the above, I have ordered a 2 g Mg-rider. 12/05/20 22:13 The patient's urinalysis is unremarkable. Test results discussed with the patient in one of her daughters, at the bedside. The daughter is concerned that the patient may be too weak and unstable to go home, and that she may need to move to a [facility]. Once the patient's Mg- rider has finished infusing, Fabi CAZARES will ambulate the patient. 12/06/20 00:48 Notified by [employer] CAZARES that they got the patient up to ambulate her, and that the patient was unable to adequately ambulate. She will need to be admitted for [facility] placement. Case discussed with Dr. Amaral at 00:44. She accepted the patient for placement into observation, and asked that I write bridge orders. Departure - Departure Time of Disposition: 00:49 Disposition: Refer to Observation Condition: Good Clinical Impression: Generalized weakness, Fall at home - Discharge Information *PRESCRIPTION DRUG MONITORING PROGRAM REVIEWED*: Not Applicable *COPY OF PRESCRIPTION DRUG MONITORING REPORT IN PATIENT FRANCISCA: Not Applicable Sepsis Event Note (ED) - Evaluation Sepsis Screening Result: No Definite Risk - Focused Exam Vital Signs: Vital Signs Temp Pulse Resp BP Pulse Ox 12/05/20 21:48 37.0 C 102 H 16 106/55 L 96 12/05/20 19:43 36.8 C 106 H 17 122/63 97 - My Orders Last 24 Hours: My Active Orders 12/05/20 19:40 Head wo Cont [CT] Stat 12/05/20 19:41 EKG Documentation Completion [RC] STAT Chest 1V Frontal [CR] Stat - Assessment/Plan Last 24 Hours: My Active Orders 12/05/20 19:40 Head wo Cont [CT] Stat 12/05/20 19:41 EKG Documentation Completion [RC] STAT Chest 1V Frontal [CR] Stat
[2020-12-05] MEDS ORDERED: Magnesium Sulfate/Water 2 GM/50 ML BAG IV ONE (21:17)
[2020-12-05] MEDS ORDERED: Acetaminophen 325 MG Tab PO ONE (21:36)
--- NOTE | 2020-12-06 07:54 | CT ---
Head CT Technique: Multiple axial sections through the brain were obtained. Intravenous contrast was not utilized. Comparison: Prior head CT study of 11/15/20. Findings: Ventricles as well as basal cisterns and sulci over the convexities are prominent. Artifact is noted from surgical clip within the right suprasellar cistern. Cystic lesion is seen within the left thalamus which is unchanged. Minimal midline shift is seen which is stable. Scattered areas of decreased density is noted within the periventricular white matter compatible with small vessel ischemic demyelination change. No evidence of intracranial hemorrhage. No midline shift or other mass-effect is seen. Bone window settings were reviewed. No acute osseous finding is appreciated. Mastoid sinuses and paranasal sinuses show nothing acute. Minimal areas of mucosal thickening are seen within the ethmoid sinuses. Impression: 1. Mild generalized atrophy as well as previous surgery. 2. Nothing acute is definitely appreciated. Diagnostic code #2 I agree with preliminary report from [facility], finalized on 12/05/20, 9:19 PM C [employer]
[2020-12-06] MEDS ORDERED: Docusate Sodium 100 MG Cap PO PRN (07:57)
--- NOTE | 2020-12-06 07:57 | PCM.HP.2 ---
<David Szymanski - Last Filed: 12/06/20 12:21> H&P History of Present Illness - General Date of Service: 12/06/20 Admit Problem/Dx: Admission Diagnosis/Problem Admission Diagnosis/Problem Weakness Source of Information: Patient, Old Records, Provider, RN, RN Notes Reviewed History Limitations: Reports: No Limitations - History of Present Illness Initial Comments - Free Text/Narative: This is a 40-year-old female who was brought in via [facility] on 12/05/2020 after an unwitnessed fall. She was reportedly found by staff leaning on something. The patient denies having any pain however EMS found her to be somewhat confused and generally weak. 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 Patient states that she has been falling quite often, as much as once a week at this has been increasing. She has been seen in our ED for this before. She is initially found to be somewhat tachycardic at 106 bpm but is otherwise afebrile with saturations of 97% on room air. She denies any pain including headache, neck pain, wrist pain, buttock pain, or knee pain. She denies any recent fever, chills, sore throat, ear pain, nasal or sinus congestion, cough, dyspnea, chest pain, palpitations, nausea, vomiting, constipation, diarrhea, abdominal pain, urinary symptoms, recent weight loss or weight gain, recent bloody bowel movements, recent black bowel movements, joint aches, headaches, or rashes. In the ED twelve-lead EKG is obtained showing sinus tachycardia at 9 bpm. There is no ST segment changes or signs of ischemia. Previous EKG on 11/15/2020 showed a supraventricular bigeminal pattern. Temp is 36.6. Pulse 93. Respirations 16. Blood pressure 191/50, pulse ox 93%. Labs are obtained showing a leukocytosis at 12.99. Hemoglobin 9.7. Platelets are low at 169,000. Neutrophils are elevated at 91%. There is 5% band neutrophils noted. Sodium is 140. Potassium 3.9. Chloride 103. Carbon dioxide 20. Anion gap is 20.9. BUN is 26. Creatinine 1.1. GFR is 48. Glucose is 112. Calcium 8.9. Magnesium 1.6. Bilirubin 0.4. AST is 19, ALT 17, alkaline phosphatase 70. Troponin is less than 0.017. Protein is 7.0. Albumin is low at 2.8. UA is obtained and is noted to be iron in color with 2+ protein, 1+ ketones, 1+ bilirubin, negative nitrate, negative leukocyte esterase, and few bacteria. CT of the head was obtained showing mild generalized atrophy as well as previous surgery but nothing acute. CXR is obtained showing nothing acute. She is given 2 g of IV magnesium. Per ED note daughter is concerned patient is too weak to safely ambulate. RN attempted to ambulate patient in the ED which was unsuccessful. Patient was therefore admitted to the floor at 00 44. There was some [id number] on admission orders as patient was initially ordered inpatient and then observation status. Patient should be admitted inpatient due to frequent falls, generalized weakness, failure to thrive, and need for SNF placement. 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 She is a former smoker. Her PCP is Dr. Foley. She does see neurology but is unsure of the name. She sees Dr. Simental for oncology. - Related Data Allergies/Adverse Reactions: Allergies Allergy/AdvReac Type Severity Reaction Status Date / Time No Known Allergies Allergy Verified 11/15/20 08:14 Home Medications: Home Meds Gabapentin 300 mg PO BEDTIME 06/01/16 [History] Clopidogrel Bisulfate [Clopidogrel] 75 mg PO DAILY 01/04/19 [History] Rosuvastatin [Crestor] 20 mg PO BEDTIME 01/04/19 [History] Sertraline [Zoloft] 100 mg PO DAILY 01/04/19 [History] Aspirin 81 mg PO DAILY 10/16/19 [History] Metoprolol Succinate [Toprol Xl] 50 mg PO DAILY 10/16/19 [History] Multivitamin [Multivitamins] 1 cap PO DAILY 10/16/19 [History] Potassium Chloride 20 meq PO DAILY #30 tablet.er 09/27/20 [Rx] Acetaminophen [Pain Relief] 650 mg PO ASDIRECTED PRN 10/14/20 [History] Clotrimazole [Clotrimazole 1%] 1 dose TOP BID 10/14/20 [History] Imipramine HCl [Imipramine] 25 mg PO QPM 10/14/20 [History] Lidocaine [Aspercreme Lidocaine] 1 applic TOP DAILY PRN 10/14/20 [History] Anastrozole [Arimidex] 1 mg PO DAILY 10/15/20 [History] Calcium Carbonate [Tums] 400 mg PO 6XDAY PRN MDD 15 tabs 10/15/20 [History] calcium polycarbophiL [Fiber Tabs] 1,250 mg PO BID 10/15/20 [History] Cholecalciferol (Vitamin D3) [Vitamin D3] 4,000 unit PO DAILY 12/05/20 [History] Ferrous Sulfate 325 mg PO BID 12/05/20 [History] Fish Oil/[place]-3 Fatty Acids [Fish Oil 1,000 MG] 1,000 mg PO DAILY 12/05/20 [History] Iron,Carbonyl/Ascorbic Acid [Vitron-C Tablet] 1 tab PO DAILY 12/05/20 [History] Megestrol [Megace] 20 mg PO DAILY 12/05/20 [History] Neomycin/Bacitracin/Polymyxinb [Antibiotic Ointment] 1 applic TOP ASDIRECTED PRN 12/05/20 [History] Past Medical History HEENT History: Reports: Impaired Vision Other HEENT History: wears glasses Cardiovascular History: Reports: High Cholesterol, Hypertension Respiratory History: Reports: COPD Gastrointestinal History: Reports: None Genitourinary History: Reports: Urinary Incontinence 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 OB/BYN History: Musculoskeletal History: Reports: Osteoarthritis, Osteoporosis Neurological History: Reports: Cerebral Aneurysms, CVA, Other (See Below) Other Neuro History: aneursym Psychiatric History: Reports: Anxiety, Dementia Endocrine/Metabolic History: Reports: None Oncologic (Cancer) History: Reports: Breast, Lung - Infectious Disease History Infectious Disease History: Reports: Chicken Pox, Measles, Mumps, Novel Coronavirus - Past Surgical History Head Surgeries/Procedures: Reports: Craniotomy HEENT Surgical History: Reports: Cataract Surgery, Naso-Sinus Surgery Cardiovascular Surgical History: Reports: None Respiratory Surgical History: Reports: None GI Surgical History: Reports: Appendectomy, Cholecystectomy, Colonoscopy Female Surgical History: Reports: None Neurological Surgical History: Reports: Other (See Below) Other Neurological Surgeries/Procedures: coil Musculoskeletal Surgical History: Reports: Shoulder Surgery Other Musculoskeletal Surgeries/Procedures:: left arm rods Oncologic Surgical History: Reports: Mastectomy Other Oncologic Surgeries/Procedures: left mastectomy Social & Family History - Family History Family Medical History: No Pertinent Family History - Tobacco Use Tobacco Use Status *Q: Former Tobacco User Years of Tobacco use: 35 Packs/Tins Daily: 3 Used Tobacco, but Quit: Yes Month/Year Tobacco Last Used: 6 years ago Second Hand Smoke Exposure: No - Caffeine Use Caffeine Use: Reports: Coffee - Alcohol Use Number of Drinks Per Day: 1 Date of Last Drink: 11/11/20 - Recreational Drug Use Recreational Drug Use: No - Living Situation & Occupation Living situation: Reports: , Alone, Assisted Living ([facility]) Occupation: Retired H&P Review of Systems - Review of Systems: Review Of Systems: See Below General: Reports: No Symptoms, Weakness, Fatigue. Denies: Fever, Chills, Malaise, Night Sweats, Decreased Appetite, Weight Loss, Weight Gain HEENT: Reports: No Symptoms. Denies: Headaches, Sore Throat Pulmonary: Reports: No Symptoms. Denies: Shortness of Breath, Wheezing, Pleuritic Chest Pain, Cough, Sputum Cardiovascular: Reports: No Symptoms. Denies: Chest Pain, Palpitations, Dyspnea on Exertion, Edema Gastrointestinal: Reports: No Symptoms. Denies: Abdominal Pain, Constipation, Diarrhea, Nausea, Vomiting Genitourinary: Reports: No Symptoms. Denies: Pain Musculoskeletal: Reports: No Symptoms Skin: Reports: No Symptoms. Denies: Cyanosis Psychiatric: Reports: No Symptoms. Denies: Confusion Neurological: Reports: No Symptoms, Pre-Existing Deficit (Left hemiparesis and contracture of left upper extremity), Difficulty Walking, Weakness, Gait Disturbance. Denies: Confusion, Dizziness, Headache, Numbness, Tingling Hematologic/Lymphatic: Reports: No Symptoms Immunologic: Reports: No Symptoms Exam - Exam Exam: See Below - Vital Signs Vital Signs: Last Vital Signs Temp 97.9 F 12/06/20 01:44 Pulse 93 12/06/20 01:44 Resp 16 12/05/20 21:48 BP 91/50 L 12/06/20 01:44 Pulse Ox 93 L 12/06/20 01:44 Weight: 50.303 kg - Exam Quality Assessment: DVT Prophylaxis. No: Supplemental Oxygen, Urinary Catheter General: Alert, Oriented, Cooperative. No: Mild Distress HEENT: Conjunctiva Clear, EACs Clear, Mucosa Moist & [place], Posterior Pharynx Clear Neck: Supple, Trachea Midline Lungs: Clear to Auscultation, Normal Respiratory Effort Cardiovascular: Regular Rate, Regular Rhythm GI/Abdominal Exam: Normal Bowel Sounds, Soft, Non-Tender, No Distention (Female) Exam: Deferred Rectal (Female) Exam: Deferred Back Exam: Normal Inspection, Full Range of Motion Extremities: Non-Tender, No Pedal Edema, Normal Capillary Refill, Other (Baseline left hemiparesis with left upper extremity contracture) Peripheral Pulses: 2+: Radial (L), Radial (R), Dorsalis Pedis (L), Dorsalis Pedis (R) Skin: Warm, Dry, Intact Neurological: Cranial Nerves Intact (grossly ) Neuro Extensive - Mental Status: Alert, Oriented x3 - Patient Data Lab Results Last 24 hrs: Laboratory Results - last 24 hr 12/05/20 12/05/20 12/05/20 Range/Units 19:43 20:17 20:17 WBC 12.99 H (3.98-10.04) K/mm3 RBC 4.00 (3.98-5.22) M/mm3 Hgb 9.7 L (11.2-15.7) gm/dl Hct 30.8 L (34.1-44.9) % MCV 77.0 L D (79.4-94.8) fl MCH 24.3 L (25.6-32.2) pg MCHC 31.5 L (32.2-35.5) g/dl RDW Std Deviation 43.5 (36.4-46.3) fL Plt Count 169 L (182-369) K/mm3 MPV 11.1 (9.4-12.3) fl Neutrophils % (Manual) 91 H (40-60) % Band Neutrophils % 5 (0-10) % Lymphocytes % (Manual) 1 L (20-40) % Atypical Lymphs % 0 % Monocytes % (Manual) 3 (2-10) % Eosinophils % (Manual) 0 L (0.7-5.8) % Basophils % (Manual) 0 L (0.1-1.2) Platelet Estimate Adequate Hypochromasia 1+ slight Microcytosis 2+ moderate Ovalocytes 1+ slight RBC Morph Comment Not Reportable Sodium 140 (136-145) mEq/L Potassium 3.9 (3.5-5.1) mEq/L Chloride 103 (98-107) mEq/L Carbon Dioxide 20 L (21-32) mEq/L Anion Gap 20.9 H (5-15) BUN 26 H (7-18) mg/dL Creatinine 1.1 H (0.55-1.02) mg/dL Est Cr Clr Drug Dosing TNP Estimated GFR (MDRD) 48 (>60) mL/min BUN/Creatinine Ratio 23.6 H (14-18) Glucose 112 (83-115) mg/dL POC Glucose 111 H (83-110) mg/dL Calcium 8.9 (8.5-10.1) mg/dL Magnesium 1.6 L (1.8-2.4) mg/dl Total Bilirubin 0.4 (0.2-1.0) mg/dL AST 19 (15-37) U/L ALT 17 (14-59) U/L Alkaline Phosphatase 70 (46-116) U/L Troponin I < 0.017 (0.00-0.056) ng/mL Total Protein 7.0 (6.4-8.2) g/dl Albumin 2.8 L (3.4-5.0) g/dl Globulin 4.2 gm/dL Albumin/Globulin Ratio 0.7 L (1-2) Urine Color (Yellow) Urine Appearance (Clear) Urine pH (5.0-8.0) Ur Specific Adams (1.005-1.030) Urine Protein (Negative) Urine Glucose (UA) (Negative) Urine Ketones (Negative) Urine Occult Blood (Negative) Urine Nitrite (Negative) Urine Bilirubin (Negative) Urine Urobilinogen (0.2-1.0) Ur Leukocyte Esterase (Negative) U Hyaline Cast (Auto) (0-5) /lpf Urine RBC (0-5) /hpf Urine WBC (0-5) /hpf Ur Squamous Epith Cells (0-5) /hpf Urine Bacteria (FEW) /hpf Urine Mucus (FEW) /hpf SARS-CoV-2 RNA (DONNY) (NEGATIVE) MRSA (PCR) 12/05/20 12/06/20 12/06/20 Range/Units 20:41 01:29 02:50 WBC (3.98-10.04) K/mm3 RBC (3.98-5.22) M/mm3 Hgb (11.2-15.7) gm/dl Hct (34.1-44.9) % MCV (79.4-94.8) fl MCH (25.6-32.2) pg MCHC (32.2-35.5) g/dl RDW Std Deviation (36.4-46.3) fL Plt Count (182-369) K/mm3 MPV (9.4-12.3) fl Neutrophils % (Manual) (40-60) % Band Neutrophils % (0-10) % Lymphocytes % (Manual) (20-40) % Atypical Lymphs % % Monocytes % (Manual) (2-10) % Eosinophils % (Manual) (0.7-5.8) % Basophils % (Manual) (0.1-1.2) Platelet Estimate Hypochromasia Microcytosis Ovalocytes RBC Morph Comment Sodium (136-145) mEq/L Potassium (3.5-5.1) mEq/L Chloride (98-107) mEq/L Carbon Dioxide (21-32) mEq/L Anion Gap (5-15) BUN (7-18) mg/dL Creatinine (0.55-1.02) mg/dL Est Cr Clr Drug Dosing Estimated GFR (MDRD) (>60) mL/min BUN/Creatinine Ratio (14-18) Glucose (83-115) mg/dL POC Glucose (83-110) mg/dL Calcium (8.5-10.1) mg/dL Magnesium (1.8-2.4) mg/dl Total Bilirubin (0.2-1.0) mg/dL AST (15-37) U/L ALT (14-59) U/L Alkaline Phosphatase (46-116) U/L Troponin I (0.00-0.056) ng/mL Total Protein (6.4-8.2) g/dl Albumin (3.4-5.0) g/dl Globulin gm/dL Albumin/Globulin Ratio (1-2) Urine Color Iron H (Yellow) Urine Appearance Clear (Clear) Urine pH 6.0 (5.0-8.0) Ur Specific Adams 1.025 (1.005-1.030) Urine Protein 2+ H (Negative) Urine Glucose (UA) Negative (Negative) Urine Ketones 1+ H (Negative) Urine Occult Blood Negative (Negative) Urine Nitrite Negative (Negative) Urine Bilirubin 1+ H (Negative) Urine Urobilinogen 0.2 (0.2-1.0) Ur Leukocyte Esterase Negative (Negative) U Hyaline Cast (Auto) 0-5 (0-5) /lpf Urine RBC Not seen (0-5) /hpf Urine WBC 0-5 (0-5) /hpf Ur Squamous Epith Cells 0-5 (0-5) /hpf Urine Bacteria Few (FEW) /hpf Urine Mucus Few (FEW) /hpf SARS-CoV-2 RNA (DONNY) Negative (NEGATIVE) MRSA (PCR) Negative Result Diagrams: 12/05/20 20:17 12/05/20 20:17 Sepsis Event Note - Evaluation Sepsis Screening Result: No Definite Risk - Focused Exam Vital Signs: Vital Signs Temp Temp Pulse Pulse Resp BP BP 12/06/20 01:44 97.9 F 93 91/50 L 12/05/20 21:48 98.6 F 102 H 16 106/55 L Pulse Ox 12/06/20 01:44 93 L 12/05/20 21:48 96 - Problem List (1) Frequent falls SNOMED Code(s): 732583487 ICD Code: R29.6 - REPEATED FALLS Status: Acute Priority: High Current Visit: Yes (2) Fall at home SNOMED Code(s): 08573166 ICD Code: W19.XXXA - UNSPECIFIED FALL, INITIAL ENCOUNTER; Y92.009 - UNSP PLACE IN UNSP NON-INSTITUT (PRIVATE) RESIDENCE PLACE Status: Acute Priority: High Current Visit: Yes Qualifiers: Encounter type: initial encounter Qualified Code(s): W19.XXXA - Unspecified fall, initial encounter; Y92.009 - Unspecified place in unspecified non- institutional (private) residence as the place of occurrence of the external cause (3) Generalized weakness SNOMED Code(s): 76693653 ICD Code: R53.1 - WEAKNESS Status: Acute Priority: High Current Visit: Yes (4) Left-sided weakness SNOMED Code(s): 125789541 ICD Code: R53.1 - WEAKNESS Status: Chronic Priority: High Current Visit: Yes (5) Anxiety SNOMED Code(s): 57972671 ICD Code: F41.9 - ANXIETY DISORDER, UNSPECIFIED Status: Chronic Priority: Low Current Visit: No (6) Arthritis SNOMED Code(s): 5401248 ICD Code: M19.90 - UNSPECIFIED OSTEOARTHRITIS, UNSPECIFIED SITE Status: Chronic Priority: Low Current Visit: No (7) HLD (hyperlipidemia) SNOMED Code(s): 75914344 ICD Code: E78.5 - HYPERLIPIDEMIA, UNSPECIFIED Status: Chronic Priority: Low Current Visit: No Qualifiers: Hyperlipidemia type: unspecified Qualified Code(s): E78.5 - Hyperlipidemia, unspecified (8) HTN (hypertension) SNOMED Code(s): 08989307 ICD Code: I10 - ESSENTIAL (PRIMARY) HYPERTENSION Status: Chronic Priority: Medium Current Visit: No Qualifiers: Hypertension type: unspecified Qualified Code(s): I10 - Essential (primary) hypertension (9) History of CVA with residual deficit SNOMED Code(s): 669611075 ICD Code: I69.30 - UNSPECIFIED SEQUELAE OF CEREBRAL INFARCTION Status: Chronic Priority: Medium Current Visit: Yes (10) History of breast cancer SNOMED Code(s): 724864788 ICD Code: Z85.3 - PERSONAL HISTORY OF MALIGNANT NEOPLASM OF BREAST Status: Chronic Priority: Low Current Visit: No (11) History of cerebral aneurysm repair SNOMED Code(s): 229138757 ICD Code: Z98.890 - OTHER SPECIFIED POSTPROCEDURAL STATES; Z86.79 - PERSONAL HISTORY OF OTHER DISEASES OF THE CIRCULATORY SYSTEM Status: Chronic Priority: Low Current Visit: No (12) History of mastectomy SNOMED Code(s): 708656954, 813537952 ICD Code: Z90.10 - ACQUIRED ABSENCE OF UNSPECIFIED BREAST AND NIPPLE Status: Chronic Priority: Low Current Visit: No Qualifiers: Laterality: left Qualified Code(s): Z90.12 - Acquired absence of left breast and nipple (13) Lung cancer SNOMED Code(s): 560842820 ICD Code: C34.90 - MALIGNANT NEOPLASM OF UNSP PART OF UNSP BRONCHUS OR LUNG Status: Chronic Priority: High Current Visit: Yes Qualifiers: Laterality: unspecified laterality Lung location: unspecified part of lung Qualified Code(s): C34.90 - Malignant neoplasm of unspecified part of unspe cified bronchus or lung (14) Osteoporosis SNOMED Code(s): 85028275 ICD Code: M81.0 - AGE-RELATED OSTEOPOROSIS W/O CURRENT PATHOLOGICAL FRACTURE Status: Chronic Priority: Low Current Visit: No Qualifiers: Osteoporosis type: unspecified Presence of current pathological fracture: without current pathological fracture Qualified Code(s): M81.0 - Age-related osteoporosis without current pathological fracture (15) Failure to thrive SNOMED Code(s): 97288627 ICD Code: VTW9300 - Status: Acute Priority: High Current Visit: Yes Qualifiers: Failure to thrive age range: in adult Qualified Code(s): R62.7 - Adult failure to thrive (16) Hypomagnesemia SNOMED Code(s): 133828776 ICD Code: E83.42 - HYPOMAGNESEMIA Status: Acute Priority: High Current Visit: Yes (17) Hypoalbuminemia SNOMED Code(s): 756003348 ICD Code: E88.09 - OTH DISORDERS OF PLASMA-PROTEIN METABOLISM, NEC Status: Acute Priority: High Current Visit: Yes Problem List Initiated/Reviewed/Updated: Yes Orders Last 24hrs: Active Orders 24 hr Category Date Time Status Admission Status [Patient Status] [ADT] Routine ADT 12/06/20 05:07 Active EKG Documentation Completion [RC] STAT Care 12/05/20 19:41 Active Regular Diet [DIET] Diet 12/06/20 Breakfast Active Chest 1V Frontal [CR] Stat Exams 12/05/20 19:41 Taken Resuscitation Status Routine Resus Stat 12/06/20 07:41 Ordered Assessment/Plan Comment:: Assessment on admission - 12/06/20 * 80 yo female presents to ED via Ambulance due to concerns over CVA from [facility] * Stroke alert called in ED * History of CVA in 2004 and cortical basilar degeneration leading to left sided hemiparesis * CT in ED showed mild generalized atrophy and previous surgery but nothing acute * Patient reports frequent falls - as often as once a week * History of : D, HTN, suspected COPD, urinary incontinence, osteoarthritis, osteoporosis, cerebral aneurysm post SAH requiring clipping in 2004, cortical basilar degeneration, dementia, anxiety, left breast cancer status postmastectomy, lung cancer, former tobacco user quit 1994. * EKG in ED shoed Sinus tachycardia at 109 BPM with no ischemic changes * Labs in ED: * WBC 12.99 * Hemoglobin 9.7 * Platelet 169 * Neutrophils 91% * Band neutrophils 5% * Sodium 140 * Potassium 3.9 * Anion gap 20.9 * BUN 26, creatinine 1.9, GFR 48 * Glucose 112 * Magnesium 1.6 (supplemented in ED with 2 gm) * Bilirubin 0.4 * AST 19, ALT 17, alkaline phosphatase 70 * Troponin less than 0.017 * Albumin 2.8 * UA negative however 2+ protein, 1+ ketones, 1+ bilirubin noted. * Chest x-ray obtained and shows nothing acute. * Suspect leukocytosis is secondary to chronic cancer. No infectious signs or symptoms noted. * Confusion about admission status however patient admitted inpatient due to failure to thrive, generalized weakness, frequent falls PLAN Frequent falls Fall at home Generalized weakness Failure to thrive Left-sided weakness History of CVA with residual deficit Hypomagnesemia Hypoalbuminemia * PT/OT * CM/SW * Magnesium supplemented in ED * Zipper [employer]r consultation * Monitor labs * Check vitamin D, Folic acid, and B12 levels Anxiety Arthritis HLD (hyperlipidemia) HTN (hypertension) Osteoporosis * Review/reconcile home medications * Monitor vital signs History of breast cancer History of cerebral aneurysm repair History of mastectomy Lung cancer * No acute concerns * Continue home medications as ordered Code status: DNR/DNI PCP: Dr. Foley Oncologist: Dr. Simental DVT prophylaxis: Home Plavix and baby ASA Social: Patient resides at [facility]. Will likely require SNF at discharge. SW consulted Disposition: Patient admitted inpatient for frequent falls, generalized weakness, and failure to thrive. Prognosis: Overall poor prognosis due to severity of chronic conditions. - Mortality Measure Prognosis:: Poor <Meri Amaral - Last Filed: 12/06/20 15:46> H&P History of Present Illness - General Admit Problem/Dx: Admission Diagnosis/Problem Admission Diagnosis/Problem Weakness Exam - Vital Signs Vital Signs: Last Vital Signs Temp 36.4 C 12/06/20 15:09 Pulse 95 12/06/20 15:09 Resp 16 12/06/20 15:09 BP 129/68 12/06/20 15:09 Pulse Ox 97 12/06/20 15:09 - Patient Data Lab Results Last 24 hrs: Laboratory Results - last 24 hr 12/05/20 12/05/20 12/05/20 Range/Units 19:43 20:17 20:17 WBC 12.99 H (3.98-10.04) K/mm3 RBC 4.00 (3.98-5.22) M/mm3 Hgb 9.7 L (11.2-15.7) gm/dl Hct 30.8 L (34.1-44.9) % MCV 77.0 L D (79.4-94.8) fl MCH 24.3 L (25.6-32.2) pg MCHC 31.5 L (32.2-35.5) g/dl RDW Std Deviation 43.5 (36.4-46.3) fL Plt Count 169 L (182-369) K/mm3 MPV 11.1 (9.4-12.3) fl Neutrophils % (Manual) 91 H (40-60) % Band Neutrophils % 5 (0-10) % Lymphocytes % (Manual) 1 L (20-40) % Atypical Lymphs % 0 % Monocytes % (Manual) 3 (2-10) % Eosinophils % (Manual) 0 L (0.7-5.8) % Basophils % (Manual) 0 L (0.1-1.2) Platelet Estimate Adequate Hypochromasia 1+ slight Microcytosis 2+ moderate Ovalocytes 1+ slight RBC Morph Comment Not Reportable Sodium 140 (136-145) mEq/L Potassium 3.9 (3.5-5.1) mEq/L Chloride 103 (98-107) mEq/L Carbon Dioxide 20 L (21-32) mEq/L Anion Gap 20.9 H (5-15) BUN 26 H (7-18) mg/dL Creatinine 1.1 H (0.55-1.02) mg/dL Est Cr Clr Drug Dosing TNP Estimated GFR (MDRD) 48 (>60) mL/min BUN/Creatinine Ratio 23.6 H (14-18) Glucose 112 (83-115) mg/dL POC Glucose 111 H (83-110) mg/dL Calcium 8.9 (8.5-10.1) mg/dL Magnesium 1.6 L (1.8-2.4) mg/dl Total Bilirubin 0.4 (0.2-1.0) mg/dL AST 19 (15-37) U/L ALT 17 (14-59) U/L Alkaline Phosphatase 70 (46-116) U/L Troponin I < 0.017 (0.00-0.056) ng/mL C-Reactive Protein (<1.0) mg/dL Total Protein 7.0 (6.4-8.2) g/dl Albumin 2.8 L (3.4-5.0) g/dl Globulin 4.2 gm/dL Albumin/Globulin Ratio 0.7 L (1-2) Vitamin B12 (193-986) pg/ml Vitamin D 25-Hydroxy (30.0-100.0) ng/ml Folate (8.6-58.9) ng/mL Urine Color (Yellow) Urine Appearance (Clear) Urine pH (5.0-8.0) Ur Specific Adams (1.005-1.030) Urine Protein (Negative) Urine Glucose (UA) (Negative) Urine Ketones (Negative) Urine Occult Blood (Negative) Urine Nitrite (Negative) Urine Bilirubin (Negative) Urine Urobilinogen (0.2-1.0) Ur Leukocyte Esterase (Negative) U Hyaline Cast (Auto) (0-5) /lpf Urine RBC (0-5) /hpf Urine WBC (0-5) /hpf Ur Squamous Epith Cells (0-5) /hpf Urine Bacteria (FEW) /hpf Urine Mucus (FEW) /hpf SARS-CoV-2 RNA (DONNY) (NEGATIVE) MRSA (PCR) 12/05/20 12/06/20 12/06/20 Range/Units 20:41 01:29 02:50 WBC (3.98-10.04) K/mm3 RBC (3.98-5.22) M/mm3 Hgb (11.2-15.7) gm/dl Hct (34.1-44.9) % MCV (79.4-94.8) fl MCH (25.6-32.2) pg MCHC (32.2-35.5) g/dl RDW Std Deviation (36.4-46.3) fL Plt Count (182-369) K/mm3 MPV (9.4-12.3) fl Neutrophils % (Manual) (40-60) % Band Neutrophils % (0-10) % Lymphocytes % (Manual) (20-40) % Atypical Lymphs % % Monocytes % (Manual) (2-10) % Eosinophils % (Manual) (0.7-5.8) % Basophils % (Manual) (0.1-1.2) Platelet Estimate Hypochromasia Microcytosis Ovalocytes RBC Morph Comment Sodium (136-145) mEq/L Potassium (3.5-5.1) mEq/L Chloride (98-107) mEq/L Carbon Dioxide (21-32) mEq/L Anion Gap (5-15) BUN (7-18) mg/dL Creatinine (0.55-1.02) mg/dL Est Cr Clr Drug Dosing Estimated GFR (MDRD) (>60) mL/min BUN/Creatinine Ratio (14-18) Glucose (83-115) mg/dL POC Glucose (83-110) mg/dL Calcium (8.5-10.1) mg/dL Magnesium (1.8-2.4) mg/dl Total Bilirubin (0.2-1.0) mg/dL AST (15-37) U/L ALT (14-59) U/L Alkaline Phosphatase (46-116) U/L Troponin I (0.00-0.056) ng/mL C-Reactive Protein (<1.0) mg/dL Total Protein (6.4-8.2) g/dl Albumin (3.4-5.0) g/dl Globulin gm/dL Albumin/Globulin Ratio (1-2) Vitamin B12 (193-986) pg/ml Vitamin D 25-Hydroxy (30.0-100.0) ng/ml Folate (8.6-58.9) ng/mL Urine Color Iron H (Yellow) Urine Appearance Clear (Clear) Urine pH 6.0 (5.0-8.0) Ur Specific Adams 1.025 (1.005-1.030) Urine Protein 2+ H (Negative) Urine Glucose (UA) Negative (Negative) Urine Ketones 1+ H (Negative) Urine Occult Blood Negative (Negative) Urine Nitrite Negative (Negative) Urine Bilirubin 1+ H (Negative) Urine Urobilinogen 0.2 (0.2-1.0) Ur Leukocyte Esterase Negative (Negative) U Hyaline Cast (Auto) 0-5 (0-5) /lpf Urine RBC Not seen (0-5) /hpf Urine WBC 0-5 (0-5) /hpf Ur Squamous Epith Cells 0-5 (0-5) /hpf Urine Bacteria Few (FEW) /hpf Urine Mucus Few (FEW) /hpf SARS-CoV-2 RNA (DONNY) Negative (NEGATIVE) MRSA (PCR) Negative 12/06/20 12/06/20 12/06/20 Range/Units 12:42 12:42 12:42 WBC (3.98-10.04) K/mm3 RBC (3.98-5.22) M/mm3 Hgb (11.2-15.7) gm/dl Hct (34.1-44.9) % MCV (79.4-94.8) fl MCH (25.6-32.2) pg MCHC (32.2-35.5) g/dl RDW Std Deviation (36.4-46.3) fL Plt Count (182-369) K/mm3 MPV (9.4-12.3) fl Neutrophils % (Manual) (40-60) % Band Neutrophils % (0-10) % Lymphocytes % (Manual) (20-40) % Atypical Lymphs % % Monocytes % (Manual) (2-10) % Eosinophils % (Manual) (0.7-5.8) % Basophils % (Manual) (0.1-1.2) Platelet Estimate Hypochromasia Microcytosis Ovalocytes RBC Morph Comment Sodium (136-145) mEq/L Potassium (3.5-5.1) mEq/L Chloride (98-107) mEq/L Carbon Dioxide (21-32) mEq/L Anion Gap (5-15) BUN (7-18) mg/dL Creatinine (0.55-1.02) mg/dL Est Cr Clr Drug Dosing Estimated GFR (MDRD) (>60) mL/min BUN/Creatinine Ratio (14-18) Glucose (83-115) mg/dL POC Glucose (83-110) mg/dL Calcium (8.5-10.1) mg/dL Magnesium (1.8-2.4) mg/dl Total Bilirubin (0.2-1.0) mg/dL AST (15-37) U/L ALT (14-59) U/L Alkaline Phosphatase (46-116) U/L Troponin I (0.00-0.056) ng/mL C-Reactive Protein 18.3 H* (<1.0) mg/dL Total Protein (6.4-8.2) g/dl Albumin (3.4-5.0) g/dl Globulin gm/dL Albumin/Globulin Ratio (1-2) Vitamin B12 465 (193-986) pg/ml Vitamin D 25-Hydroxy 87.6 (30.0-100.0) ng/ml Folate 55.4 (8.6-58.9) ng/mL Urine Color (Yellow) Urine Appearance (Clear) Urine pH (5.0-8.0) Ur Specific Adams (1.005-1.030) Urine Protein (Negative) Urine Glucose (UA) (Negative) Urine Ketones (Negative) Urine Occult Blood (Negative) Urine Nitrite (Negative) Urine Bilirubin (Negative) Urine Urobilinogen (0.2-1.0) Ur Leukocyte Esterase (Negative) U Hyaline Cast (Auto) (0-5) /lpf Urine RBC (0-5) /hpf Urine WBC (0-5) /hpf Ur Squamous Epith Cells (0-5) /hpf Urine Bacteria (FEW) /hpf Urine Mucus (FEW) /hpf SARS-CoV-2 RNA (DONNY) (NEGATIVE) MRSA (PCR) Result Diagrams: 12/05/20 20:17 12/05/20 20:17 Sepsis Event Note - Focused Exam Vital Signs: Vital Signs Temp Pulse Resp BP Pulse Ox 12/06/20 15:09 36.4 C 95 16 129/68 97 12/06/20 09:31 101 H 131/70 12/06/20 09:16 36.7 C 101 H 14 131/70 96 Orders Last 24hrs: Active Orders 24 hr Category Date Time Status Patient Status [ADT] Routine ADT 12/06/20 08:03 Active Height and Weight [RC] 06 Care 12/06/20 07:57 Active Intake and Output [RC] 04,16 Care 12/06/20 07:57 Active Oxygen Therapy [RC] PRN Care 12/06/20 07:57 Active Up With Assistance [RC] BID Care 12/06/20 07:57 Active VTE/DVT Education [RC] DAILY Care 12/06/20 07:57 Active Vital Signs [RC] Q4HR Care 12/06/20 07:57 Active Consult to Case Management/Director Of Teacher Education [CONS] Cons 12/06/20 07:57 Active Routine Consult to Zipper Repairer [CONS] Routine Cons 12/06/20 11:52 Active Consult to Spiritual Care [CONS] Routine Cons 12/06/20 07:57 Active OT Evaluation and Treatment [CONS] Routine Cons 12/06/20 07:57 Active PT Evaluation and Treatment [CONS] Routine Cons 12/06/20 07:57 Active Pureed Diet [DIET] Diet 12/06/20 Lunch Active BASIC METABOLIC PANEL,BMP [CHEM] AM Lab 12/07/20 05:11 Ordered BASIC METABOLIC PANEL,BMP [CHEM] AM Lab 12/08/20 05:11 Ordered BASIC METABOLIC PANEL,BMP [CHEM] AM Lab 12/09/20 05:11 Ordered BASIC METABOLIC PANEL,BMP [CHEM] AM Lab 12/10/20 05:11 Ordered CBC WITH AUTO DIFF [HEME] AM Lab 12/07/20 05:11 Ordered CBC WITH AUTO DIFF [HEME] AM Lab 12/08/20 05:11 Ordered CBC WITH AUTO DIFF [HEME] AM Lab 12/09/20 05:11 Ordered CBC WITH AUTO DIFF [HEME] AM Lab 12/10/20 05:11 Ordered CRP [C-REACTIVE PROTEIN] [CHEM] AM Lab 12/07/20 05:11 Ordered CRP [C-REACTIVE PROTEIN] [CHEM] AM Lab 12/08/20 05:11 Ordered CRP [C-REACTIVE PROTEIN] [CHEM] AM Lab 12/09/20 05:11 Ordered CRP [C-REACTIVE PROTEIN] [CHEM] AM Lab 12/10/20 05:11 Ordered CULTURE BLOOD [BC] Stat Lab 12/06/20 15:26 Ordered CULTURE BLOOD [BC] Stat Lab 12/06/20 15:26 Ordered MAGNESIUM [CHEM] AM Lab 12/07/20 05:11 Ordered MAGNESIUM [CHEM] AM Lab 12/08/20 05:11 Ordered MAGNESIUM [CHEM] AM Lab 12/09/20 05:11 Ordered MAGNESIUM [CHEM] AM Lab 12/10/20 05:11 Ordered Acetaminophen [TylenoL] Med 12/06/20 07:57 Active 650 mg PO Q4H PRN Anastrozole [Arimidex] Med 12/06/20 09:00 Active 1 mg PO DAILY Aspirin Med 12/06/20 09:00 Active 81 mg PO DAILY Calcium Carbonate [Tums] Med 12/06/20 08:00 Active 500 mg PO Q4H PRN Cholecalciferol (Vitamin D3) [Vitamin D3] Med 12/06/20 09:00 Active 5,000 unit PO DAILY Clopidogrel [Plavix] Med 12/06/20 09:00 Active 75 mg PO DAILY Clotrimazole [Lotrimin AF 1% Crm] Med 12/06/20 21:00 Active 0 gm TOP BID Docusate Sodium [Colace] Med 12/06/20 07:57 Active 100 mg PO BID PRN Ferrous Sulfate Med 12/06/20 09:00 Active 324 mg PO BID Gabapentin [Neurontin] Med 12/06/20 21:00 Active 300 mg PO BEDTIME Imipramine HCl Med 12/06/20 18:00 Active 25 mg PO QPM Lactated Ringers [Ringers, Lactated] 1,000 ml Med 12/06/20 08:15 Active IV ASDIRECTED Lidocaine 4% [Aspercreme 4%] Med 12/06/20 08:00 Active 0 each TOP DAILY PRN Megestrol [Megace] Med 12/07/20 09:00 Active 20 mg PO DAILY Metoprolol Succinate [Toprol XL] Med 12/06/20 09:00 Active 50 mg PO DAILY Multivitamins,Therapeutic [Thera] Med 12/06/20 09:00 Active 1 each PO DAILY Potassium Chloride [Klor-Con M20] Med 12/06/20 09:15 Active 20 meq PO DAILY Rosuvastatin [Crestor] Med 12/06/20 21:00 Active 20 mg PO BEDTIME Sertraline [Zoloft] Med 12/06/20 09:00 Active 100 mg PO DAILY calcium polycarbophiL [Fibercon] Med 12/06/20 09:00 Active 1,250 mg PO BID Blood Culture x2 Reflex Set [OM.PC] Stat Oth 12/06/20 15:25 Ordered Resuscitation Status Routine Resus Stat 12/06/20 07:41 Ordered Medication Orders Acetaminophen (Tylenol) 650 mg PO Q4H PRN PRN Reason: Pain (Mild 1-3)/fever Anastrozole (Arimidex) 1 mg PO DAILY [facility] Last Admin: 12/06/20 09:43 Dose: 1 mg Documented by: ELY Aspirin (Aspirin) 81 mg PO DAILY [facility] Last Admin: 12/06/20 09:30 Dose: 81 mg Documented by: ELY Calcium Carbonate/Glycine (Tums) 500 mg PO Q4H PRN PRN Reason: upset stomach Calcium Polycarbophil (Fibercon) 1,250 mg PO BID [facility] Last Admin: 12/06/20 09:32 Dose: 1,250 mg Documented by: ELY Cholecalciferol (Vitamin D3) 5,000 unit PO DAILY [facility] Last Admin: 12/06/20 09:30 Dose: 5,000 unit Documented by: ELY Clopidogrel Bisulfate (Plavix) 75 mg PO DAILY [facility] Last Admin: 12/06/20 09:31 Dose: 75 mg Documented by: ELY Clotrimazole (Lotrimin Af 1% Crm) 0 gm TOP BID [facility] Docusate Sodium (Colace) 100 mg PO BID PRN PRN Reason: Constipation Ferrous Sulfate (Ferrous Sulfate) 324 mg PO BID [facility] Last Admin: 12/06/20 09:30 Dose: 324 mg Documented by: ELY Gabapentin (Neurontin) 300 mg PO BEDTIME [facility] Lactated Ringer's (Ringers, Lactated) 1,000 mls @ 75 mls/hr IV ASDIRECTED [facility] Stop: 12/06/20 21:34 Last Admin: 12/06/20 09:25 Dose: 75 mls/hr Documented by: ELY Imipramine HCl (Imipramine Hcl) 25 mg PO QPM [facility] Lidocaine (Aspercreme 4%) 0 each TOP DAILY PRN PRN Reason: Pain Megestrol Acetate (Megace) 20 mg PO DAILY [facility] Metoprolol Succinate (Toprol Xl) 50 mg PO DAILY [facility] Last Admin: 12/06/20 09:31 Dose: 50 mg Documented by: ELY Multivitamins (Thera) 1 each PO DAILY [facility] Last Admin: 12/06/20 09:32 Dose: 1 each Documented by: ELY Potassium Chloride (Klor-Con M20) 20 meq PO DAILY [facility] Last Admin: 12/06/20 09:32 Dose: 20 meq Documented by: ELY Rosuvastatin Calcium (Crestor) 20 mg PO BEDTIME [facility] Sertraline HCl (Zoloft) 100 mg PO DAILY [facility] Last Admin: 12/06/20 09:30 Dose: 100 mg Documented by: ELY Assessment/Plan Comment:: Additional work up as needed for elevated CBC findings.
[2020-12-06] MEDS ORDERED: Lidocaine 4% 1 each Patch TOP PRN (08:00)
[2020-12-06] MEDS ORDERED: Calcium Carbonate 500 MG Tab.Chew PO PRN (08:00)
[2020-12-06] MEDS ORDERED: Lactated Ringers 1,000 ML IV SCH (08:15)
[2020-12-06] MEDS ORDERED: ASCORBIC ACID PO SCH (09:00)
[2020-12-06] MEDS ORDERED: IRON CARBONYL PO SCH (09:00)
[2020-12-06] MEDS: Sertraline 50 MG Tab PO SCH (09:30)
[2020-12-06] MEDS: Cholecalciferol (Vitamin D3) 5,000 UNIT Cap PO SCH (09:30)
[2020-12-06] MEDS: Aspirin 81 MG Tab.Chew PO SCH (09:30)
[2020-12-06] MEDS: Ferrous Sulfate 324 MG Tab.EC PO SCH ×2 (09:30→20:40)
[2020-12-06] MEDS: Clopidogrel 75 MG Tab PO SCH (09:31)
[2020-12-06] MEDS: Metoprolol Succinate 25 MG Tab.ER PO SCH (09:31)
[2020-12-06] MEDS: Calcium Polycarbophil 625 MG Tab PO SCH ×2 (09:32→20:39)
[2020-12-06] MEDS: Potassium Chloride 20 MEQ Tab.ER PO SCH (09:32)
[2020-12-06] MEDS: Multivitamins,Therapeutic Tab PO SCH (09:32)
[2020-12-06] MEDS: Anastrozole 1 MG Tab PO SCH (09:43)
--- NOTE | 2020-12-06 11:56 | CR ---
Chest: Portable view of the chest was obtained. Comparison: Prior chest x-ray of 09/27/20. Heart size and mediastinum are normal. Lungs are clear with no acute parenchymal change. Surgical clips are seen within the left axillary region. Previous surgery is noted within left humerus. Impression: 1. Nothing acute is appreciated on portable chest x-ray. Diagnostic code #2
[2020-12-06] MEDS: Rosuvastatin 10 MG Tab PO SCH (20:38)
[2020-12-06] MEDS: Gabapentin 300 MG Cap PO SCH (20:39)
[2020-12-06] MEDS: Clotrimazole 1% Crm 30 GM Tube TOP SCH (20:41)
[2020-12-07] MEDS: Sertraline 50 MG Tab PO SCH (09:01)
[2020-12-07] MEDS: Calcium Polycarbophil 625 MG Tab PO SCH ×2 (09:01→20:45)
[2020-12-07] MEDS: Aspirin 81 MG Tab.Chew PO SCH (09:02)
[2020-12-07] MEDS: Ferrous Sulfate 324 MG Tab.EC PO SCH ×2 (09:02→20:45)
[2020-12-07] MEDS: Multivitamins,Therapeutic Tab PO SCH (09:03)
[2020-12-07] MEDS: Metoprolol Succinate 25 MG Tab.ER PO SCH (09:03)
[2020-12-07] MEDS: Cholecalciferol (Vitamin D3) 5,000 UNIT Cap PO SCH (09:03)
[2020-12-07] MEDS: Clopidogrel 75 MG Tab PO SCH (09:04)
[2020-12-07] MEDS: Potassium Chloride 20 MEQ Tab.ER PO SCH ×3 (09:04→20:45)
[2020-12-07] MEDS: Anastrozole 1 MG Tab PO SCH (09:19)
[2020-12-07] MEDS: Clotrimazole 1% Crm 30 GM Tube TOP SCH ×2 (09:19→20:46)
[2020-12-07] MEDS: Megestrol 40 MG Tab PO SCH (09:24)
--- NOTE | 2020-12-07 17:26 | PCM.PN ---
- General Info Date of Service: 12/07/20 Subjective Update: Lab work, WBCs have improved; CRP remains elevated. Patient denies complaints. Functional Status: Reports: Tolerating Diet - Review of Systems General: Reports: Weakness HEENT: Reports: No Symptoms Pulmonary: Reports: No Symptoms Cardiovascular: Reports: No Symptoms Gastrointestinal: Reports: No Symptoms Genitourinary: Reports: No Symptoms Musculoskeletal: Reports: No Symptoms Skin: Reports: No Symptoms Neurological: Reports: No Symptoms Psychiatric: Reports: No Symptoms - Patient Data Vitals - Most Recent: Last Vital Signs Temp 37.0 C 12/07/20 16:06 Pulse 89 12/07/20 16:06 Resp 16 12/07/20 16:06 BP 134/68 12/07/20 16:06 Pulse Ox 98 12/07/20 16:06 Weight - Most Recent: 50.712 kg I&O - Last 24 Hours: Intake & Output 12/07/20 12/07/20 12/07/20 06:59 14:59 22:59 Intake Total 1300 20 Balance 1300 20 Lab Results Last 24 Hours: Laboratory Results - last 24 hr 12/07/20 12/07/20 12/07/20 Range/Units 04:50 04:50 04:50 WBC 6.18 (3.98-10.04) K/mm3 RBC 3.72 L (3.98-5.22) M/mm3 Hgb 9.2 L (11.2-15.7) gm/dl Hct 28.6 L (34.1-44.9) % MCV 76.9 L (79.4-94.8) fl MCH 24.7 L (25.6-32.2) pg MCHC 32.2 (32.2-35.5) g/dl RDW Std Deviation 43.1 (36.4-46.3) fL Plt Count 140 L (182-369) K/mm3 MPV 11.4 (9.4-12.3) fl Neut % (Auto) 89.6 H (34.0-71.1) % Lymph % (Auto) 6.0 L (19.3-51.7) % Saline % (Auto) 4.0 L (4.7-12.5) % Eos % (Auto) 0 L (0.7-5.8) Baso % (Auto) 0.2 (0.1-1.2) % Neut # (Auto) 5.54 (1.56-6.13) K/mm3 Lymph # (Auto) 0.37 L (1.18-3.74) K/mm3 Saline # (Auto) 0.25 (0.24-0.36) K/mm3 Eos # (Auto) 0.00 L (0.04-0.36) K/mm3 Baso # (Auto) 0.01 (0.01-0.08) K/mm3 Manual Slide Review Abnormal smear Sodium 138 (136-145) mEq/L Potassium 3.0 L (3.5-5.1) mEq/L Chloride 103 (98-107) mEq/L Carbon Dioxide 19 L (21-32) mEq/L Anion Gap 19.0 H (5-15) BUN 16 (7-18) mg/dL Creatinine 0.7 (0.55-1.02) mg/dL Est Cr Clr Drug Dosing 52.17 mL/min Estimated GFR (MDRD) > 60 (>60) mL/min BUN/Creatinine Ratio 22.9 H (14-18) Glucose 100 (83-115) mg/dL Lactic Acid 0.8 (0.4-2.0) mmol/L Calcium 7.9 L (8.5-10.1) mg/dL Magnesium 1.8 (1.8-2.4) mg/dl C-Reactive Protein 15.4 H* (<1.0) mg/dL Procalcitonin ng/mL 12/07/20 Range/Units 04:50 WBC (3.98-10.04) K/mm3 RBC (3.98-5.22) M/mm3 Hgb (11.2-15.7) gm/dl Hct (34.1-44.9) % MCV (79.4-94.8) fl MCH (25.6-32.2) pg MCHC (32.2-35.5) g/dl RDW Std Deviation (36.4-46.3) fL Plt Count (182-369) K/mm3 MPV (9.4-12.3) fl Neut % (Auto) (34.0-71.1) % Lymph % (Auto) (19.3-51.7) % Saline % (Auto) (4.7-12.5) % Eos % (Auto) (0.7-5.8) Baso % (Auto) (0.1-1.2) % Neut # (Auto) (1.56-6.13) K/mm3 Lymph # (Auto) (1.18-3.74) K/mm3 Saline # (Auto) (0.24-0.36) K/mm3 Eos # (Auto) (0.04-0.36) K/mm3 Baso # (Auto) (0.01-0.08) K/mm3 Manual Slide Review Sodium (136-145) mEq/L Potassium (3.5-5.1) mEq/L Chloride (98-107) mEq/L Carbon Dioxide (21-32) mEq/L Anion Gap (5-15) BUN (7-18) mg/dL Creatinine (0.55-1.02) mg/dL Est Cr Clr Drug Dosing mL/min Estimated GFR (MDRD) (>60) mL/min BUN/Creatinine Ratio (14-18) Glucose (83-115) mg/dL Lactic Acid (0.4-2.0) mmol/L Calcium (8.5-10.1) mg/dL Magnesium (1.8-2.4) mg/dl C-Reactive Protein (<1.0) mg/dL Procalcitonin 8.03 H ng/mL [facility] Results Last 24 Hours: Microbiology 12/06/20 15:54 Aerobic Blood Culture - Preliminary Blood - Venous - Lab Draw NO GROWTH AFTER 1 DAY Anaerobic Blood Culture - Final 12/06/20 15:42 Aerobic Blood Culture - Preliminary Blood - Venous NO GROWTH AFTER 1 DAY Anaerobic Blood Culture - Final Med Orders - Current: Current Medications Acetaminophen (Tylenol) 650 mg PO Q4H PRN PRN Reason: Pain (Mild 1-3)/fever Anastrozole (Arimidex) 1 mg PO DAILY [facility] Last Admin: 12/07/20 09:19 Dose: 1 mg Documented by: Aspirin (Aspirin) 81 mg PO DAILY [facility] Last Admin: 12/07/20 09:02 Dose: 81 mg Documented by: Calcium Carbonate/Glycine (Tums) 500 mg PO Q4H PRN PRN Reason: upset stomach Calcium Polycarbophil (Fibercon) 1,250 mg PO BID [facility] Last Admin: 12/07/20 09:01 Dose: 1,250 mg Documented by: Cholecalciferol (Vitamin D3) 5,000 unit PO DAILY [facility] Last Admin: 12/07/20 09:03 Dose: 5,000 unit Documented by: Clopidogrel Bisulfate (Plavix) 75 mg PO DAILY [facility] Last Admin: 12/07/20 09:04 Dose: 75 mg Documented by: Clotrimazole (Lotrimin Af 1% Crm) 0 gm TOP BID [facility] Last Admin: 12/07/20 09:19 Dose: 1 applic Documented by: Docusate Sodium (Colace) 100 mg PO BID PRN PRN Reason: Constipation Ferrous Sulfate (Ferrous Sulfate) 324 mg PO BID [facility] Last Admin: 12/07/20 09:02 Dose: 324 mg Documented by: Gabapentin (Neurontin) 300 mg PO BEDTIME [facility] Last Admin: 12/06/20 20:39 Dose: 300 mg Documented by: Imipramine HCl (Imipramine Hcl) 25 mg PO BEDTIME [facility] Last Admin: 12/06/20 20:40 Dose: 25 mg Documented by: Lidocaine (Aspercreme 4%) 0 each TOP DAILY PRN PRN Reason: Pain Megestrol Acetate (Megace) 20 mg PO DAILY [facility] Last Admin: 12/07/20 09:24 Dose: 20 mg Documented by: Metoprolol Succinate (Toprol Xl) 50 mg PO DAILY [facility] Last Admin: 12/07/20 09:03 Dose: 50 mg Documented by: Multivitamins (Thera) 1 each PO DAILY [facility] Last Admin: 12/07/20 09:03 Dose: 1 each Documented by: Potassium Chloride (Klor-Con M20) 40 meq PO BID [facility] Stop: 12/08/20 21:01 Last Admin: 12/07/20 11:21 Dose: 40 meq Documented by: Rosuvastatin Calcium (Crestor) 20 mg PO BEDTIME [facility] Last Admin: 12/06/20 20:38 Dose: 20 mg Documented by: Sertraline HCl (Zoloft) 100 mg PO DAILY [facility] Last Admin: 12/07/20 09:01 Dose: 100 mg Documented by: Discontinued Medications Acetaminophen (Tylenol) 650 mg PO NOW ONE Stop: 12/05/20 21:37 Last Admin: 12/05/20 21:45 Dose: 650 mg Documented by: Magnesium Sulfate (Magnesium Sulfate In Water 2 Gm/50 Ml) 2 gm in 50 mls @ 25 mls/hr IV ONETIME ONE Stop: 12/05/20 23:16 Last Admin: 12/05/20 21:30 Dose: 25 mls/hr Documented by: Lactated Ringer's (Ringers, Lactated) 1,000 mls @ 75 mls/hr IV ASDIRECTED [facility] Stop: 12/06/20 21:34 Last Admin: 12/06/20 09:25 Dose: 75 mls/hr Documented by: Non-Formulary Medication (Iron,Carbonyl/Ascorbic Acid [Vitron-C Tablet]) 1 tab PO DAILY [facility] Last Admin: 12/06/20 09:46 Dose: Not Given Documented by: Potassium Chloride (Klor-Con M20) 20 meq PO DAILY [facility] Last Admin: 12/07/20 09:04 Dose: 20 meq Documented by: - Exam Quality Assessment: DVT Prophylaxis General: Alert, Oriented HEENT: Pupils Equal, Pupils Reactive, EOMI Neck: Trachea Midline, No JVD Lungs: Clear to Auscultation, Normal Respiratory Effort Cardiovascular: Regular Rate GI/Abdominal Exam: Normal Bowel Sounds, Soft, Non-Tender, No Distention (Female) Exam: Deferred Back Exam: Normal Inspection Extremities: Normal Inspection, Normal Capillary Refill Skin: Warm Neurological: No New Focal Deficit, Normal Speech Psy/Mental Status: Alert - Patient Data Lab Results Last 24 hrs: Laboratory Results - last 24 hr 12/07/20 12/07/20 12/07/20 Range/Units 04:50 04:50 04:50 WBC 6.18 (3.98-10.04) K/mm3 RBC 3.72 L (3.98-5.22) M/mm3 Hgb 9.2 L (11.2-15.7) gm/dl Hct 28.6 L (34.1-44.9) % MCV 76.9 L (79.4-94.8) fl MCH 24.7 L (25.6-32.2) pg MCHC 32.2 (32.2-35.5) g/dl RDW Std Deviation 43.1 (36.4-46.3) fL Plt Count 140 L (182-369) K/mm3 MPV 11.4 (9.4-12.3) fl Neut % (Auto) 89.6 H (34.0-71.1) % Lymph % (Auto) 6.0 L (19.3-51.7) % Saline % (Auto) 4.0 L (4.7-12.5) % Eos % (Auto) 0 L (0.7-5.8) Baso % (Auto) 0.2 (0.1-1.2) % Neut # (Auto) 5.54 (1.56-6.13) K/mm3 Lymph # (Auto) 0.37 L (1.18-3.74) K/mm3 Saline # (Auto) 0.25 (0.24-0.36) K/mm3 Eos # (Auto) 0.00 L (0.04-0.36) K/mm3 Baso # (Auto) 0.01 (0.01-0.08) K/mm3 Manual Slide Review Abnormal smear Sodium 138 (136-145) mEq/L Potassium 3.0 L (3.5-5.1) mEq/L Chloride 103 (98-107) mEq/L Carbon Dioxide 19 L (21-32) mEq/L Anion Gap 19.0 H (5-15) BUN 16 (7-18) mg/dL Creatinine 0.7 (0.55-1.02) mg/dL Est Cr Clr Drug Dosing 52.17 mL/min Estimated GFR (MDRD) > 60 (>60) mL/min BUN/Creatinine Ratio 22.9 H (14-18) Glucose 100 (83-115) mg/dL Lactic Acid 0.8 (0.4-2.0) mmol/L Calcium 7.9 L (8.5-10.1) mg/dL Magnesium 1.8 (1.8-2.4) mg/dl C-Reactive Protein 15.4 H* (<1.0) mg/dL Procalcitonin ng/mL 12/07/20 Range/Units 04:50 WBC (3.98-10.04) K/mm3 RBC (3.98-5.22) M/mm3 Hgb (11.2-15.7) gm/dl Hct (34.1-44.9) % MCV (79.4-94.8) fl MCH (25.6-32.2) pg MCHC (32.2-35.5) g/dl RDW Std Deviation (36.4-46.3) fL Plt Count (182-369) K/mm3 MPV (9.4-12.3) fl Neut % (Auto) (34.0-71.1) % Lymph % (Auto) (19.3-51.7) % Saline % (Auto) (4.7-12.5) % Eos % (Auto) (0.7-5.8) Baso % (Auto) (0.1-1.2) % Neut # (Auto) (1.56-6.13) K/mm3 Lymph # (Auto) (1.18-3.74) K/mm3 Saline # (Auto) (0.24-0.36) K/mm3 Eos # (Auto) (0.04-0.36) K/mm3 Baso # (Auto) (0.01-0.08) K/mm3 Manual Slide Review Sodium (136-145) mEq/L Potassium (3.5-5.1) mEq/L Chloride (98-107) mEq/L Carbon Dioxide (21-32) mEq/L Anion Gap (5-15) BUN (7-18) mg/dL Creatinine (0.55-1.02) mg/dL Est Cr Clr Drug Dosing mL/min Estimated GFR (MDRD) (>60) mL/min BUN/Creatinine Ratio (14-18) Glucose (83-115) mg/dL Lactic Acid (0.4-2.0) mmol/L Calcium (8.5-10.1) mg/dL Magnesium (1.8-2.4) mg/dl C-Reactive Protein (<1.0) mg/dL Procalcitonin 8.03 H ng/mL Result Diagrams: 12/07/20 04:50 12/07/20 04:50 Hubert Results Last 24 hrs: Microbiology 12/06/20 15:54 Aerobic Blood Culture - Preliminary Blood - Venous - Lab Draw NO GROWTH AFTER 1 DAY Anaerobic Blood Culture - Final 12/06/20 15:42 Aerobic Blood Culture - Preliminary Blood - Venous NO GROWTH AFTER 1 DAY Anaerobic Blood Culture - Final Sepsis Event Note - Evaluation Sepsis Screening Result: No Definite Risk - Focused Exam Vital Signs: Vital Signs Temp Pulse Resp BP Pulse Ox 12/07/20 16:06 37.0 C 89 16 134/68 98 12/07/20 12:53 36.7 C 88 16 100/85 95 12/07/20 12:12 36.5 C 75 16 105/70 94 L 12/07/20 09:03 107 H 103/63 12/07/20 08:57 36.7 C 107 H 16 103/63 94 L - Problem List Review Problem List Initiated/Reviewed/Updated: Yes - My Orders Last 24 Hours: My Active Orders 12/07/20 Breakfast National Dysphagia Diet [DIET] 12/07/20 11:00 Potassium Chloride [Klor-Con M20] 40 meq PO BID 12/07/20 12:53 Antiembolic Devices [RC] 10,22 ETHEL Hose [Antiembolic Hose] [OM.PC] Routine 12/08/20 05:00 MYCOPLASMA PNEUMONIAE IGM AB [CHEM] Routine - Plan Plan:: Impression: * 80 yo female presents to ED via Ambulance due to concerns over CVA from [facility] * Stroke alert called in ED * 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 * EKG in ED shoed Sinus tachycardia at 109 BPM with no ischemic changes * Labs in ED: * WBC 12.99 * Hemoglobin 9.7 * Platelet 169 * Neutrophils 91% * Band neutrophils 5% * Sodium 140 * Potassium 3.9 * Anion gap 20.9 * BUN 26, creatinine 1.9, GFR 48 * Glucose 112 * Magnesium 1.6 (supplemented in ED with 2 gm) * Bilirubin 0.4 * AST 19, ALT 17, alkaline phosphatase 70 * Troponin less than 0.017 * Albumin 2.8 * UA negative however 2+ protein, 1+ ketones, 1+ bilirubin noted. * Chest x-ray obtained and shows nothing acute. * Leukocytosis, resolved * Confusion about admission status however patient admitted inpatient due to failure to thrive, generalized weakness, frequent falls PLAN Frequent falls Fall at home Generalized weakness Failure to thrive Left-sided weakness History of CVA with residual deficit Hypomagnesemia Hypoalbuminemia * PT/OT * CM/SW * Magnesium supplemented in ED * Religion Teacher consultation * Monitor labs * Check vitamin D, Folic acid, and B12 levels Anxiety Arthritis HLD (hyperlipidemia) HTN (hypertension) Osteoporosis * Review/reconcile home medications * Monitor vital signs History of breast cancer History of cerebral aneurysm repair History of mastectomy Lung cancer * No acute concerns * Continue home medications as ordered Code status: DNR/DNI PCP: Dr. Foley Oncologist: Dr. Simental DVT prophylaxis: Home Plavix and baby ASA; ETHEL hose Social: Patient resides at [facility]. Will likely require SNF at discharge. SW consulted Disposition: Patient admitted inpatient for frequent falls, generalized weakness, and failure to thrive. Prognosis: Overall poor prognosis due to severity of chronic conditions.
[2020-12-07] MEDS: Gabapentin 300 MG Cap PO SCH (20:44)
[2020-12-07] MEDS: Rosuvastatin 10 MG Tab PO SCH (20:44)
[2020-12-07] MEDS: Acetaminophen 325 MG Tab PO PRN (22:35)
[2020-12-08] MEDS: Metoprolol Succinate 25 MG Tab.ER PO SCH (08:12)
[2020-12-08] MEDS: Ferrous Sulfate 324 MG Tab.EC PO SCH ×2 (08:13→20:27)
[2020-12-08] MEDS: Sertraline 50 MG Tab PO SCH (08:14)
[2020-12-08] MEDS: Cholecalciferol (Vitamin D3) 5,000 UNIT Cap PO SCH (08:14)
[2020-12-08] MEDS: Multivitamins,Therapeutic Tab PO SCH (08:15)
[2020-12-08] MEDS: Potassium Chloride 20 MEQ Tab.ER PO SCH ×2 (08:15→20:27)
[2020-12-08] MEDS: Aspirin 81 MG Tab.Chew PO SCH (08:16)
[2020-12-08] MEDS: Clopidogrel 75 MG Tab PO SCH (08:16)
[2020-12-08] MEDS: Megestrol 40 MG Tab PO SCH (08:17)
[2020-12-08] MEDS: Anastrozole 1 MG Tab PO SCH (08:17)
[2020-12-08] MEDS: Calcium Polycarbophil 625 MG Tab PO SCH ×2 (08:17→20:27)
[2020-12-08] MEDS: Clotrimazole 1% Crm 30 GM Tube TOP SCH ×2 (08:28→20:30)
--- NOTE | 2020-12-08 09:46 | PCM.PN ---
- General Info Date of Service: 12/08/20 Functional Status: Reports: Tolerating Diet, Ambulating, Urinating - Review of Systems General: Reports: No Symptoms HEENT: Reports: No Symptoms Pulmonary: Reports: No Symptoms Cardiovascular: Reports: No Symptoms Gastrointestinal: Reports: No Symptoms Genitourinary: Reports: No Symptoms Musculoskeletal: Reports: No Symptoms Skin: Reports: No Symptoms Neurological: Reports: No Symptoms Psychiatric: Reports: No Symptoms - Patient Data Vitals - Most Recent: Last Vital Signs Temp 36.7 C 12/08/20 07:53 Pulse 87 12/08/20 08:12 Resp 14 12/08/20 07:53 BP 129/73 12/08/20 08:12 Pulse Ox 97 12/08/20 07:53 Weight - Most Recent: 49.85 kg I&O - Last 24 Hours: Intake & Output 12/07/20 12/08/20 12/08/20 22:59 06:59 14:59 Intake Total 710 800 Output Total 500 Balance 210 800 Lab Results Last 24 Hours: Laboratory Results - last 24 hr 12/08/20 12/08/20 12/08/20 Range/Units 06:05 06:05 06:05 WBC 3.95 L (3.98-10.04) K/mm3 RBC 4.06 (3.98-5.22) M/mm3 Hgb 9.7 L (11.2-15.7) gm/dl Hct 31.4 L (34.1-44.9) % MCV 77.3 L (79.4-94.8) fl MCH 23.9 L (25.6-32.2) pg MCHC 30.9 L (32.2-35.5) g/dl RDW Std Deviation 43.9 (36.4-46.3) fL Plt Count 155 L (182-369) K/mm3 MPV 10.6 (9.4-12.3) fl Neut % (Auto) 69.3 (34.0-71.1) % Lymph % (Auto) 19.7 (19.3-51.7) % [place] % (Auto) 8.4 (4.7-12.5) % Eos % (Auto) 2.0 (0.7-5.8) Baso % (Auto) 0.3 (0.1-1.2) % Neut # (Auto) 2.74 (1.56-6.13) K/mm3 Lymph # (Auto) 0.78 L (1.18-3.74) K/mm3 [place] # (Auto) 0.33 (0.24-0.36) K/mm3 Eos # (Auto) 0.08 (0.04-0.36) K/mm3 Baso # (Auto) 0.01 (0.01-0.08) K/mm3 Sodium 142 (136-145) mEq/L Potassium 3.8 (3.5-5.1) mEq/L Chloride 110 H (98-107) mEq/L Carbon Dioxide 20 L (21-32) mEq/L Anion Gap 15.8 H (5-15) BUN 15 (7-18) mg/dL Creatinine 0.7 (0.55-1.02) mg/dL Est Cr Clr Drug Dosing 51.28 mL/min Estimated GFR (MDRD) > 60 (>60) mL/min BUN/Creatinine Ratio 21.4 H (14-18) Glucose 87 (83-115) mg/dL Calcium 8.2 L (8.5-10.1) mg/dL Magnesium 2.1 (1.8-2.4) mg/dl C-Reactive Protein 11.7 H* (<1.0) mg/dL Mycoplasma pneumon IgM Negative (NEGATIVE) Hubert Results Last 24 Hours: Microbiology 12/06/20 15:54 Aerobic Blood Culture - Preliminary Blood - Venous - Lab Draw NO GROWTH AFTER 1 DAY Anaerobic Blood Culture - Final 12/06/20 15:42 Aerobic Blood Culture - Preliminary Blood - Venous NO GROWTH AFTER 1 DAY Anaerobic Blood Culture - Final Med Orders - Current: Current Medications Acetaminophen (Tylenol) 650 mg PO Q4H PRN PRN Reason: Pain (Mild 1-3)/fever Last Admin: 12/07/20 22:35 Dose: 650 mg Documented by: Anastrozole (Arimidex) 1 mg PO DAILY [facility] Last Admin: 12/08/20 08:17 Dose: 1 mg Documented by: Aspirin (Aspirin) 81 mg PO DAILY [facility] Last Admin: 12/08/20 08:16 Dose: 81 mg Documented by: Calcium Carbonate/Glycine (Tums) 500 mg PO Q4H PRN PRN Reason: upset stomach Calcium Polycarbophil (Fibercon) 1,250 mg PO BID [facility] Last Admin: 12/08/20 08:17 Dose: Not Given Documented by: Cholecalciferol (Vitamin D3) 5,000 unit PO DAILY [facility] Last Admin: 12/08/20 08:14 Dose: 5,000 unit Documented by: Clopidogrel Bisulfate (Plavix) 75 mg PO DAILY [facility] Last Admin: 12/08/20 08:16 Dose: 75 mg Documented by: Clotrimazole (Lotrimin Af 1% Crm) 0 gm TOP BID [facility] Last Admin: 12/08/20 08:28 Dose: 1 applic Documented by: Docusate Sodium (Colace) 100 mg PO BID PRN PRN Reason: Constipation Ferrous Sulfate (Ferrous Sulfate) 324 mg PO BID [facility] Last Admin: 12/08/20 08:13 Dose: 324 mg Documented by: Gabapentin (Neurontin) 300 mg PO BEDTIME [facility] Last Admin: 12/07/20 20:44 Dose: 300 mg Documented by: Imipramine HCl (Imipramine Hcl) 25 mg PO BEDTIME [facility] Last Admin: 12/07/20 20:44 Dose: 25 mg Documented by: Lidocaine (Aspercreme 4%) 0 each TOP DAILY PRN PRN Reason: Pain Megestrol Acetate (Megace) 20 mg PO DAILY [facility] Last Admin: 12/08/20 08:17 Dose: 20 mg Documented by: Metoprolol Succinate (Toprol Xl) 50 mg PO DAILY [facility] Last Admin: 12/08/20 08:12 Dose: 50 mg Documented by: Multivitamins (Thera) 1 each PO DAILY [facility] Last Admin: 12/08/20 08:15 Dose: 1 each Documented by: Potassium Chloride (Klor-Con M20) 40 meq PO BID [facility] Stop: 12/08/20 21:01 Last Admin: 12/08/20 08:15 Dose: 40 meq Documented by: Rosuvastatin Calcium (Crestor) 20 mg PO BEDTIME [facility] Last Admin: 12/07/20 20:44 Dose: 20 mg Documented by: Sertraline HCl (Zoloft) 100 mg PO DAILY [facility] Last Admin: 12/08/20 08:14 Dose: 100 mg Documented by: Discontinued Medications Acetaminophen (Tylenol) 650 mg PO NOW ONE Stop: 12/05/20 21:37 Last Admin: 12/05/20 21:45 Dose: 650 mg Documented by: Magnesium Sulfate (Magnesium Sulfate In Water 2 Gm/50 Ml) 2 gm in 50 mls @ 25 mls/hr IV ONETIME ONE Stop: 12/05/20 23:16 Last Admin: 12/05/20 21:30 Dose: 25 mls/hr Documented by: Lactated Ringer's (Ringers, Lactated) 1,000 mls @ 75 mls/hr IV ASDIRECTED [facility] Stop: 12/06/20 21:34 Last Admin: 12/06/20 09:25 Dose: 75 mls/hr Documented by: Non-Formulary Medication (Iron,Carbonyl/Ascorbic Acid [Vitron-C Tablet]) 1 tab PO DAILY [facility] Last Admin: 12/06/20 09:46 Dose: Not Given Documented by: Potassium Chloride (Klor-Con M20) 20 meq PO DAILY [facility] Last Admin: 12/07/20 09:04 Dose: 20 meq Documented by: - Exam Quality Assessment: DVT Prophylaxis General: Alert, Oriented, Cooperative, No Acute Distress HEENT: Pupils Equal, Pupils Reactive, EOMI Neck: Trachea Midline, No JVD Lungs: Normal Respiratory Effort Cardiovascular: Regular Rate, Regular Rhythm GI/Abdominal Exam: Normal Bowel Sounds, Soft, Non-Tender (Female) Exam: Deferred Back Exam: Normal Inspection Extremities: Normal Inspection, Normal Capillary Refill Skin: Warm Neurological: No New Focal Deficit Psy/Mental Status: Alert, Normal Affect, Normal Mood - Patient Data Lab Results Last 24 hrs: Laboratory Results - last 24 hr 12/08/20 12/08/20 12/08/20 Range/Units 06:05 06:05 06:05 WBC 3.95 L (3.98-10.04) K/mm3 RBC 4.06 (3.98-5.22) M/mm3 Hgb 9.7 L (11.2-15.7) gm/dl Hct 31.4 L (34.1-44.9) % MCV 77.3 L (79.4-94.8) fl MCH 23.9 L (25.6-32.2) pg MCHC 30.9 L (32.2-35.5) g/dl RDW Std Deviation 43.9 (36.4-46.3) fL Plt Count 155 L (182-369) K/mm3 MPV 10.6 (9.4-12.3) fl Neut % (Auto) 69.3 (34.0-71.1) % Lymph % (Auto) 19.7 (19.3-51.7) % [place] % (Auto) 8.4 (4.7-12.5) % Eos % (Auto) 2.0 (0.7-5.8) Baso % (Auto) 0.3 (0.1-1.2) % Neut # (Auto) 2.74 (1.56-6.13) K/mm3 Lymph # (Auto) 0.78 L (1.18-3.74) K/mm3 [place] # (Auto) 0.33 (0.24-0.36) K/mm3 Eos # (Auto) 0.08 (0.04-0.36) K/mm3 Baso # (Auto) 0.01 (0.01-0.08) K/mm3 Sodium 142 (136-145) mEq/L Potassium 3.8 (3.5-5.1) mEq/L Chloride 110 H (98-107) mEq/L Carbon Dioxide 20 L (21-32) mEq/L Anion Gap 15.8 H (5-15) BUN 15 (7-18) mg/dL Creatinine 0.7 (0.55-1.02) mg/dL Est Cr Clr Drug Dosing 51.28 mL/min Estimated GFR (MDRD) > 60 (>60) mL/min BUN/Creatinine Ratio 21.4 H (14-18) Glucose 87 (83-115) mg/dL Calcium 8.2 L (8.5-10.1) mg/dL Magnesium 2.1 (1.8-2.4) mg/dl C-Reactive Protein 11.7 H* (<1.0) mg/dL Mycoplasma pneumon IgM Negative (NEGATIVE) Result Diagrams: 12/08/20 06:05 12/08/20 06:05 Hubert Results Last 24 hrs: Microbiology 12/06/20 15:54 Aerobic Blood Culture - Preliminary Blood - Venous - Lab Draw NO GROWTH AFTER 1 DAY Anaerobic Blood Culture - Final 12/06/20 15:42 Aerobic Blood Culture - Preliminary Blood - Venous NO GROWTH AFTER 1 DAY Anaerobic Blood Culture - Final Sepsis Event Note - Evaluation Sepsis Screening Result: No Definite Risk - Focused Exam Vital Signs: Vital Signs Temp Pulse Resp BP Pulse Ox 12/08/20 08:12 87 129/73 12/08/20 07:53 36.7 C 87 14 129/73 97 12/08/20 03:28 36.8 C 95 18 108/66 98 12/08/20 00:42 37.0 C 91 20 116/74 93 L - Problem List Review Problem List Initiated/Reviewed/Updated: Yes - My Orders Last 24 Hours: My Active Orders 12/07/20 11:00 Potassium Chloride [Klor-Con M20] 40 meq PO BID 12/07/20 12:53 Antiembolic Devices [RC] 10,22 ETHEL Hose [Antiembolic Hose] [OM.PC] Routine - Plan Plan:: Impression: * 80 yo female presents to ED via Ambulance due to concerns over CVA from [facility] * Stroke alert called in ED * 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 * EKG in ED shoed Sinus tachycardia at 109 BPM with no ischemic changes * Labs in ED: * WBC 12.99--->decreased * Hemoglobin 9.7 * Platelet 169 * Neutrophils 91% * Band neutrophils 5% * Sodium 140 * Potassium 3.9 * Anion gap 20.9 * BUN 26, creatinine 1.9, GFR 48 * Glucose 112 * Magnesium 1.6 (supplemented in ED with 2 gm), corrected * Bilirubin 0.4 * AST 19, ALT 17, alkaline phosphatase 70 * Troponin less than 0.017 * Albumin 2.8 * UA negative however 2+ protein, 1+ ketones, 1+ bilirubin noted. * Chest x-ray obtained and shows nothing acute. * Leukocytosis, resolved * Confusion about admission status however patient admitted inpatient due to failure to thrive, generalized weakness, frequent falls PLAN Frequent falls Fall at home Generalized weakness Failure to thrive Left-sided weakness History of CVA with residual deficit Hypomagnesemia Hypoalbuminemia * PT/OT * CM/SW * Magnesium supplemented in ED * Personal Driver consultation * Monitor labs * Check vitamin D, Folic acid, and B12 levels Anxiety Arthritis HLD (hyperlipidemia) HTN (hypertension) Osteoporosis * Review/reconcile home medications * Monitor vital signs History of breast cancer History of cerebral aneurysm repair History of mastectomy Lung cancer * No acute concerns * Continue home medications as ordered Diarrhea, improved ELEVATED procalcitonin, NOS; will repeat CXR Code status: DNR/DNI PCP: Dr. Foley Oncologist: Dr. Simental DVT prophylaxis: Home Plavix and baby ASA; ETHEL felixe Social: Patient resides at [facility]. Will likely require SNF at discharge. SW consulted Disposition: Patient admitted inpatient for frequent falls, generalized weakness, and failure to thrive. Prognosis: Overall poor prognosis due to severity of chronic conditions.
[2020-12-08] MEDS ORDERED: Loperamide 2 MG Cap PO PRN (11:33)
[2020-12-08] MEDS: Rosuvastatin 10 MG Tab PO SCH (20:26)
[2020-12-08] MEDS: Gabapentin 300 MG Cap PO SCH (20:28)
[2020-12-08] MEDS: Acetaminophen 325 MG Tab PO PRN (20:28)
[2020-12-08] MEDS ORDERED: Trolamine Salicylate/Aloe Vera 10% Crm 85 GM Tube TOP PRN (22:20)
[2020-12-09] MEDS: Acetaminophen 325 MG Tab PO PRN (05:56)
--- NOTE | 2020-12-09 08:27 | PCM.PN ---
- General Info Date of Service: 12/09/20 Admission Dx/Problem (Free Text): Admission Diagnosis/Problem Admission Diagnosis/Problem Weakness Subjective Update: In to see Nany. She is sitting up in the chair. She reports she feels good. She is on board with our plan for SNF rehab stay. She denies any current infectious symptoms. WBC and CRP have been trending downward. We will recheck procalcitonin today and results should be in tomorrow. If this is trending downward she will be cleared for discharge to SNF. No antibiotics have been given. Functional Status: Reports: Pain Controlled, Tolerating Diet, Ambulating, Urinating. Denies: New Symptoms - Review of Systems General: Reports: Weakness (improving ). Denies: Fever, Fatigue, Malaise, Chills HEENT: Reports: No Symptoms. Denies: Headaches, Sore Throat Pulmonary: Reports: No Symptoms. Denies: Shortness of Breath, Cough, Sputum, Wheezing Cardiovascular: Reports: No Symptoms. Denies: Chest Pain, Palpitations, Dyspnea on Exertion Gastrointestinal: Reports: No Symptoms. Denies: Abdominal Pain, Constipation, Diarrhea, Nausea, Vomiting Genitourinary: Reports: No Symptoms. Denies: Pain Musculoskeletal: Reports: No Symptoms Skin: Reports: No Symptoms. Denies: Cyanosis Neurological: Reports: Pre-Existing Deficit (Left upper extremity hemiparesis with contracture), Difficulty Walking, Weakness, Gait Disturbance. Denies: Confusion Psychiatric: Reports: No Symptoms - Patient Data Vitals - Most Recent: Last Vital Signs Temp 97.3 F 12/09/20 07:33 Pulse 79 12/09/20 07:33 Resp 14 12/09/20 07:33 BP 124/66 12/09/20 07:33 Pulse Ox 95 12/09/20 07:33 Weight - Most Recent: 110 lb 1.6 oz I&O - Last 24 Hours: Intake & Output 12/08/20 12/09/20 12/09/20 22:59 06:59 14:59 Intake Total 480 400 Output Total 300 825 Balance 180 -425 Lab Results Last 24 Hours: Laboratory Results - last 24 hr 12/09/20 12/09/20 Range/Units 06:03 06:03 WBC 3.34 L (3.98-10.04) K/mm3 RBC 4.04 (3.98-5.22) M/mm3 Hgb 9.8 L (11.2-15.7) gm/dl Hct 31.3 L (34.1-44.9) % MCV 77.5 L (79.4-94.8) fl MCH 24.3 L (25.6-32.2) pg MCHC 31.3 L (32.2-35.5) g/dl RDW Std Deviation 43.7 (36.4-46.3) fL Plt Count 172 L (182-369) K/mm3 MPV 10.7 (9.4-12.3) fl Neut % (Auto) 60.2 (34.0-71.1) % Lymph % (Auto) 27.5 (19.3-51.7) % Cecil % (Auto) 8.4 (4.7-12.5) % Eos % (Auto) 3.3 (0.7-5.8) Baso % (Auto) 0.3 (0.1-1.2) % Neut # (Auto) 2.01 (1.56-6.13) K/mm3 Lymph # (Auto) 0.92 L (1.18-3.74) K/mm3 Cecil # (Auto) 0.28 (0.24-0.36) K/mm3 Eos # (Auto) 0.11 (0.04-0.36) K/mm3 Baso # (Auto) 0.01 (0.01-0.08) K/mm3 Sodium 141 (136-145) mEq/L Potassium 3.6 (3.5-5.1) mEq/L Chloride 109 H (98-107) mEq/L Carbon Dioxide 19 L (21-32) mEq/L Anion Gap 16.6 H (5-15) BUN 15 (7-18) mg/dL Creatinine 0.8 (0.55-1.02) mg/dL Est Cr Clr Drug Dosing 44.95 mL/min Estimated GFR (MDRD) > 60 (>60) mL/min BUN/Creatinine Ratio 18.8 H (14-18) Glucose 86 (83-115) mg/dL Calcium 8.3 L (8.5-10.1) mg/dL Magnesium 2.0 (1.8-2.4) mg/dl C-Reactive Protein 6.3 H* (<1.0) mg/dL Hubert Results Last 24 Hours: Microbiology 12/06/20 15:54 Aerobic Blood Culture - Preliminary Blood - Venous - Lab Draw NO GROWTH AFTER 2 DAYS Anaerobic Blood Culture - Final 12/06/20 15:42 Aerobic Blood Culture - Preliminary Blood - Venous NO GROWTH AFTER 2 DAYS Anaerobic Blood Culture - Final Med Orders - Current: Current Medications Acetaminophen (Tylenol) 650 mg PO Q4H PRN PRN Reason: Pain (Mild 1-3)/fever Last Admin: 12/09/20 05:56 Dose: 650 mg Documented by: Anastrozole (Arimidex) 1 mg PO DAILY [facility] Last Admin: 12/08/20 08:17 Dose: 1 mg Documented by: Aspirin (Aspirin) 81 mg PO DAILY [facility] Last Admin: 12/08/20 08:16 Dose: 81 mg Documented by: Calcium Carbonate/Glycine (Tums) 500 mg PO Q4H PRN PRN Reason: upset stomach Calcium Polycarbophil (Fibercon) 1,250 mg PO BID [facility] Last Admin: 12/08/20 20:27 Dose: Not Given Documented by: Cholecalciferol (Vitamin D3) 5,000 unit PO DAILY [facility] Last Admin: 12/08/20 08:14 Dose: 5,000 unit Documented by: Clopidogrel Bisulfate (Plavix) 75 mg PO DAILY [facility] Last Admin: 12/08/20 08:16 Dose: 75 mg Documented by: Clotrimazole (Lotrimin Af 1% Crm) 0 gm TOP BID [facility] Last Admin: 12/08/20 20:30 Dose: 1 applic Documented by: Docusate Sodium (Colace) 100 mg PO BID PRN PRN Reason: Constipation Ferrous Sulfate (Ferrous Sulfate) 324 mg PO BID [facility] Last Admin: 12/08/20 20:27 Dose: 324 mg Documented by: Gabapentin (Neurontin) 300 mg PO BEDTIME [facility] Last Admin: 12/08/20 20:28 Dose: 300 mg Documented by: Imipramine HCl (Imipramine Hcl) 25 mg PO BEDTIME [facility] Last Admin: 12/08/20 20:27 Dose: 25 mg Documented by: Lidocaine (Aspercreme 4%) 0 each TOP DAILY PRN PRN Reason: Pain Loperamide HCl (Imodium) 2 mg PO Q6H PRN PRN Reason: Diarrhea Last Admin: 12/08/20 12:08 Dose: 2 mg Documented by: Megestrol Acetate (Megace) 20 mg PO DAILY [facility] Last Admin: 12/08/20 08:17 Dose: 20 mg Documented by: Metoprolol Succinate (Toprol Xl) 50 mg PO DAILY [facility] Last Admin: 12/08/20 08:12 Dose: 50 mg Documented by: Multivitamins (Thera) 1 each PO DAILY [facility] Last Admin: 12/08/20 08:15 Dose: 1 each Documented by: Rosuvastatin Calcium (Crestor) 20 mg PO BEDTIME [facility] Last Admin: 12/08/20 20:26 Dose: 20 mg Documented by: Sertraline HCl (Zoloft) 100 mg PO DAILY [facility] Last Admin: 12/08/20 08:14 Dose: 100 mg Documented by: Trolamine Salicylate (Aspercreme 10%) 0 gm TOP QID PRN PRN Reason: Pain Last Admin: 12/08/20 22:35 Dose: 1 applic Documented by: Discontinued Medications Acetaminophen (Tylenol) 650 mg PO NOW ONE Stop: 12/05/20 21:37 Last Admin: 12/05/20 21:45 Dose: 650 mg Documented by: Magnesium Sulfate (Magnesium Sulfate In Water 2 Gm/50 Ml) 2 gm in 50 mls @ 25 mls/hr IV ONETIME ONE Stop: 12/05/20 23:16 Last Admin: 12/05/20 21:30 Dose: 25 mls/hr Documented by: Lactated Ringer's (Ringers, Lactated) 1,000 mls @ 75 mls/hr IV ASDIRECTED [facility] Stop: 12/06/20 21:34 Last Admin: 12/06/20 09:25 Dose: 75 mls/hr Documented by: Non-Formulary Medication (Iron,Carbonyl/Ascorbic Acid [Vitron-C Tablet]) 1 tab PO DAILY [facility] Last Admin: 12/06/20 09:46 Dose: Not Given Documented by: Potassium Chloride (Klor-Con M20) 20 meq PO DAILY [facility] Last Admin: 12/07/20 09:04 Dose: 20 meq Documented by: Potassium Chloride (Klor-Con M20) 40 meq PO BID [facility] Stop: 12/08/20 21:01 Last Admin: 12/08/20 20:27 Dose: 40 meq Documented by: - Exam Quality Assessment: DVT Prophylaxis. No: Supplemental Oxygen, Urine Catheter General: Alert, Oriented, Cooperative, No Acute Distress HEENT: Pupils Equal, Pupils Reactive, Mucous Membr. Moist/[place] Neck: Supple, Trachea Midline Lungs: Clear to Auscultation, Normal Respiratory Effort Cardiovascular: Regular Rate, Regular Rhythm GI/Abdominal Exam: Normal Bowel Sounds, Soft, Non-Tender, No Distention (Female) Exam: Deferred Back Exam: Normal Inspection, Decreased Range of Motion Extremities: Normal Inspection, Normal Range of Motion, Non-Tender, No Pedal Edema, Normal Capillary Refill, Other (Left upper extremity hemiparesis with contracture of left arm.) Skin: Warm, Dry, Intact Neurological: No New Focal Deficit Psy/Mental Status: Alert - Patient Data Lab Results Last 24 hrs: Laboratory Results - last 24 hr 12/09/20 12/09/20 Range/Units 06:03 06:03 WBC 3.34 L (3.98-10.04) K/mm3 RBC 4.04 (3.98-5.22) M/mm3 Hgb 9.8 L (11.2-15.7) gm/dl Hct 31.3 L (34.1-44.9) % MCV 77.5 L (79.4-94.8) fl MCH 24.3 L (25.6-32.2) pg MCHC 31.3 L (32.2-35.5) g/dl RDW Std Deviation 43.7 (36.4-46.3) fL Plt Count 172 L (182-369) K/mm3 MPV 10.7 (9.4-12.3) fl Neut % (Auto) 60.2 (34.0-71.1) % Lymph % (Auto) 27.5 (19.3-51.7) % Cecil % (Auto) 8.4 (4.7-12.5) % Eos % (Auto) 3.3 (0.7-5.8) Baso % (Auto) 0.3 (0.1-1.2) % Neut # (Auto) 2.01 (1.56-6.13) K/mm3 Lymph # (Auto) 0.92 L (1.18-3.74) K/mm3 Cecil # (Auto) 0.28 (0.24-0.36) K/mm3 Eos # (Auto) 0.11 (0.04-0.36) K/mm3 Baso # (Auto) 0.01 (0.01-0.08) K/mm3 Sodium 141 (136-145) mEq/L Potassium 3.6 (3.5-5.1) mEq/L Chloride 109 H (98-107) mEq/L Carbon Dioxide 19 L (21-32) mEq/L Anion Gap 16.6 H (5-15) BUN 15 (7-18) mg/dL Creatinine 0.8 (0.55-1.02) mg/dL Est Cr Clr Drug Dosing 44.95 mL/min Estimated GFR (MDRD) > 60 (>60) mL/min BUN/Creatinine Ratio 18.8 H (14-18) Glucose 86 (83-115) mg/dL Calcium 8.3 L (8.5-10.1) mg/dL Magnesium 2.0 (1.8-2.4) mg/dl C-Reactive Protein 6.3 H* (<1.0) mg/dL Result Diagrams: 12/09/20 06:03 12/09/20 06:03 Hubert Results Last 24 hrs: Microbiology 12/06/20 15:54 Aerobic Blood Culture - Preliminary Blood - Venous - Lab Draw NO GROWTH AFTER 2 DAYS Anaerobic Blood Culture - Final 12/06/20 15:42 Aerobic Blood Culture - Preliminary Blood - Venous NO GROWTH AFTER 2 DAYS Anaerobic Blood Culture - Final Sepsis Event Note - Evaluation Sepsis Screening Result: No Definite Risk - Focused Exam Vital Signs: Vital Signs Temp Pulse Resp BP Pulse Ox 12/09/20 07:33 97.3 F 79 14 124/66 95 12/09/20 04:38 99.1 F 88 20 141/78 H 94 L 12/09/20 00:17 98.2 F 90 18 124/72 96 - Problem List & Annotations (1) Frequent falls SNOMED Code(s): 072724724 Code(s): R29.6 - REPEATED FALLS Status: Acute Priority: High Current Visit: Yes (2) Fall at home SNOMED Code(s): 24656457 Code(s): W19.XXXA - UNSPECIFIED FALL, INITIAL ENCOUNTER; Y92.009 - UNSP PLACE IN UNSP NON-INSTITUT (PRIVATE) RESIDENCE PLACE Status: Acute Priority: High Current Visit: Yes Qualifiers: Encounter type: initial encounter Qualified Code(s): W19.XXXA - Unspecified fall, initial encounter; Y92.009 - Unspecified place in unspecified non- institutional (private) residence as the place of occurrence of the external cause (3) Generalized weakness SNOMED Code(s): 67360799 Code(s): R53.1 - WEAKNESS Status: Acute Priority: High Current Visit: Yes (4) Left-sided weakness SNOMED Code(s): 630700582 Code(s): R53.1 - WEAKNESS Status: Chronic Priority: High Current Visit: Yes (5) Anxiety SNOMED Code(s): 05463726 Code(s): F41.9 - ANXIETY DISORDER, UNSPECIFIED Status: Chronic Priority: Low Current Visit: No (6) Arthritis SNOMED Code(s): 5940428 Code(s): M19.90 - UNSPECIFIED OSTEOARTHRITIS, UNSPECIFIED SITE Status: Chronic Priority: Low Current Visit: No (7) HLD (hyperlipidemia) SNOMED Code(s): 30516259 Code(s): E78.5 - HYPERLIPIDEMIA, UNSPECIFIED Status: Chronic Priority: Low Current Visit: No Qualifiers: Hyperlipidemia type: unspecified Qualified Code(s): E78.5 - Hyperlipidemia, unspecified (8) HTN (hypertension) SNOMED Code(s): 44765543 Code(s): I10 - ESSENTIAL (PRIMARY) HYPERTENSION Status: Chronic Priority: Medium Current Visit: No Qualifiers: Hypertension type: unspecified Qualified Code(s): I10 - Essential (primary) hypertension (9) History of CVA with residual deficit SNOMED Code(s): 461952823 Code(s): I69.30 - UNSPECIFIED SEQUELAE OF CEREBRAL INFARCTION Status: Chronic Priority: Medium Current Visit: Yes (10) History of breast cancer SNOMED Code(s): 353536152 Code(s): Z85.3 - PERSONAL HISTORY OF MALIGNANT NEOPLASM OF BREAST Status: Chronic Priority: Low Current Visit: No (11) History of cerebral aneurysm repair SNOMED Code(s): 276717314 Code(s): Z98.890 - OTHER SPECIFIED POSTPROCEDURAL STATES; Z86.79 - PERSONAL HISTORY OF OTHER DISEASES OF THE CIRCULATORY SYSTEM Status: Chronic Priority: Low Current Visit: No (12) History of mastectomy SNOMED Code(s): 122373112, 839427283 Code(s): Z90.10 - ACQUIRED ABSENCE OF UNSPECIFIED BREAST AND NIPPLE Status: Chronic Priority: Low Current Visit: No Qualifiers: Laterality: left Qualified Code(s): Z90.12 - Acquired absence of left breast and nipple (13) Lung cancer SNOMED Code(s): 337163727 Code(s): C34.90 - MALIGNANT NEOPLASM OF UNSP PART OF UNSP BRONCHUS OR LUNG Status: Chronic Priority: High Current Visit: Yes Qualifiers: Laterality: unspecified laterality Lung location: unspecified part of lung Qualified Code(s): C34.90 - Malignant neoplasm of unspecified part of unspeci fied bronchus or lung (14) Osteoporosis SNOMED Code(s): 72130774 Code(s): M81.0 - AGE-RELATED OSTEOPOROSIS W/O CURRENT PATHOLOGICAL FRACTURE Status: Chronic Priority: Low Current Visit: No Qualifiers: Osteoporosis type: unspecified Presence of current pathological fracture: without current pathological fracture Qualified Code(s): M81.0 - Age-related osteoporosis without current pathological fracture (15) Failure to thrive SNOMED Code(s): 34691726 Code(s): JBL0620 - Status: Acute Priority: High Current Visit: Yes Qualifiers: Failure to thrive age range: in adult Qualified Code(s): R62.7 - Adult failure to thrive (16) Hypomagnesemia SNOMED Code(s): 662747046 Code(s): E83.42 - HYPOMAGNESEMIA Status: Resolved Priority: High Current Visit: Yes (17) Hypoalbuminemia SNOMED Code(s): 422952320 Code(s): E88.09 - OTH DISORDERS OF PLASMA-PROTEIN METABOLISM, NEC Status: Acute Priority: High Current Visit: Yes - Problem List Review Problem List Initiated/Reviewed/Updated: Yes - My Orders Last 24 Hours: My Active Orders 12/09/20 06:03 PROCALCITONIN [REF] Urgent 12/10/20 05:11 BASIC METABOLIC PANEL,BMP [CHEM] AM CBC WITH AUTO DIFF [HEME] AM CRP [C-REACTIVE PROTEIN] [CHEM] AM MAGNESIUM [CHEM] AM - Assessment Assessment:: Impression: * 80 yo female presents to ED via Ambulance due to concerns over CVA from [facility] * Stroke alert called in ED * 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 * EKG in ED shoed Sinus tachycardia at 109 BPM with no ischemic changes * Labs: * WBC 12.99--->decreased * Hemoglobin 9.7 * Platelet 169 * Neutrophils 91% * Band neutrophils 5% * Sodium 140 * Potassium 3.9 * Anion gap 20.9 * BUN 26, creatinine 1.9, GFR 48 * Glucose 112 * Magnesium 1.6 (supplemented in ED with 2 gm), corrected * Bilirubin 0.4 * AST 19, ALT 17, alkaline phosphatase 70 * Troponin less than 0.017 * Albumin 2.8 * UA negative however 2+ protein, 1+ ketones, 1+ bilirubin noted. * Chest x-ray obtained and shows nothing acute. * Leukocytosis, resolved * Confusion about admission status however patient admitted inpatient due to failure to thrive, generalized weakness, frequent falls 12/09/20 * PT/OT continue to recommend SNF placement * CRP and WBC trending downward * Will recheck procalcitonin today. * No signs of any infection or infectious source. Patient reports she feels good. * For discharge tomorrow to SNF for rehab stay pending repeat procalcitonin. - Plan Plan:: Frequent falls Fall at home Generalized weakness Failure to thrive Left-sided weakness History of CVA with residual deficit Hypoalbuminemia * PT/OT * CM/SW * Hardware Trainer consultation * Monitor labs * SNF rehab stay Anxiety Arthritis HLD (hyperlipidemia) HTN (hypertension) Osteoporosis * Review/reconcile home medications * Monitor vital signs History of breast cancer History of cerebral aneurysm repair History of mastectomy Lung cancer * No acute concerns * Continue home medications as ordered Leukocytosis - resolved Elevated CRP - improving Elevated procalcitonin * No infectious symptoms - continue to monitor * Blood cultures negative * CXR negative * UA negative * Repeat WBC, CRP, Procalcitonin tomorrow Code status: DNR/DNI PCP: Dr. Foley Oncologist: Dr. Simental DVT prophylaxis: Home Plavix and baby ASA; ETHEL hose Social: Patient resides at [facility]. Will likely require SNF at discharge. SW consulted Disposition: Patient admitted inpatient for frequent falls, generalized weakness, and failure to thrive. Prognosis: Overall poor prognosis due to severity of chronic conditions. LOS > 96 Hrs due to continued workup for leukocytosis. Hopeful for discharge in 24-48 hours pending procalcitonin repeat.
[2020-12-09] MEDS: Aspirin 81 MG Tab.Chew PO SCH (09:27)
[2020-12-09] MEDS: Metoprolol Succinate 25 MG Tab.ER PO SCH (09:27)
[2020-12-09] MEDS: Calcium Polycarbophil 625 MG Tab PO SCH ×2 (09:28→20:50)
[2020-12-09] MEDS: Clopidogrel 75 MG Tab PO SCH (09:28)
[2020-12-09] MEDS: Ferrous Sulfate 324 MG Tab.EC PO SCH ×2 (09:28→20:52)
[2020-12-09] MEDS: Multivitamins,Therapeutic Tab PO SCH (09:28)
[2020-12-09] MEDS: Cholecalciferol (Vitamin D3) 5,000 UNIT Cap PO SCH (09:28)
[2020-12-09] MEDS: Sertraline 50 MG Tab PO SCH (09:28)
[2020-12-09] MEDS: Clotrimazole 1% Crm 30 GM Tube TOP SCH ×2 (09:30→20:52)
[2020-12-09] MEDS: Megestrol 40 MG Tab PO SCH (09:31)
[2020-12-09] MEDS: Anastrozole 1 MG Tab PO SCH (09:31)
--- NOTE | 2020-12-09 09:41 | CR ---
Chest: AP and lateral views were obtained. Comparison: Prior chest x-ray of 12/05/20. Heart size is within normal limits. Tortuous thoracic aorta is noted. Previous left mastectomy is seen. Surgical clips are noted within the left axillary region. Plate and screws are seen within the proximal left humerus. Lungs are clear with no acute parenchymal change. Minimal degenerative change is noted within the spine. Impression: 1. Findings as noted above. 2. Nothing acute is appreciated on 2 view chest x-ray. Diagnostic code #2
[2020-12-09] MEDS: Gabapentin 300 MG Cap PO SCH (20:50)
[2020-12-09] MEDS: Rosuvastatin 10 MG Tab PO SCH (20:52)
[2020-12-10 07:44] VITALS: BP 122/73; PULSE 100
[2020-12-10] MEDS ORDERED: Potassium Chloride 20 MEQ Tab.ER PO ONE (08:00)
--- NOTE | 2020-12-10 08:14 | PCM.DCSUM1 ---
Discharge Summary - Hospital Course HPI Initial Comments: This is a 40-year-old female who was brought in via [facility] on 12/05/2020 after an unwitnessed fall. She was reportedly found by staff leaning on something. The patient denies having any pain however EMS found her to be somewhat confused and generally weak. 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 Patient states that she has been falling quite often, as much as once a week at this has been increasing. She has been seen in our ED for this before. She is initially found to be somewhat tachycardic at 106 bpm but is otherwise afebrile with saturations of 97% on room air. She denies any pain including headache, neck pain, wrist pain, buttock pain, or knee pain. She denies any recent fever, chills, sore throat, ear pain, nasal or sinus conges tion, cough, dyspnea, chest pain, palpitations, nausea, vomiting, constipation, diarrhea, abdominal pain, urinary symptoms, recent weight loss or weight gain, recent bloody bowel movements, recent black bowel movements, joint aches, headaches, or rashes. In the ED twelve-lead EKG is obtained showing sinus tachycardia at 9 bpm. There is no ST segment changes or signs of ischemia. Previous EKG on 11/15/2020 showed a supraventricular bigeminal pattern. Temp is 36.6. Pulse 93. Respirations 16. Blood pressure 191/50, pulse ox 93%. Labs are obtained showing a leukocytosis at 12.99. Hemoglobin 9.7. Platelets are low at 169,000. Neutrophils are elevated at 91%. There is 5% band neutrophils noted. Sodium is 140. Potassium 3.9. Chloride 103. Carbon dioxide 20. Anion gap is 20.9. BUN is 26. Creatinine 1.1. GFR is 48. Glucose is 112. Calcium 8.9. Magnesium 1.6. Bilirubin 0.4. AST is 19, ALT 17, alkaline phosphatase 70. Troponin is less than 0.017. Protein is 7.0. Albumin is low at 2.8. UA is obtained and is noted to be iron in color with 2+ protein, 1+ ketones, 1+ bilirubin, negative nitrate, negative leukocyte esterase, and few bacteria. CT of the head was obtained showing mild generalized atrophy as well as previous surgery but nothing acute. CXR is obtained showing nothing acute. She is given 2 g of IV magnesium. Per ED note daughter is concerned patient is too weak to safely ambulate. RN attempted to ambulate patient in the ED which was unsuccessful. Patient was therefore admitted to the floor at 00 44. There was some [id number] on admission orders as patient was initially ordered inpatient and then observation status. Patient should be admitted inpatient due to frequent falls, generalized weakness, failure to thrive, and need for SNF pl acement. 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 She is a former smoker. Her PCP is Dr. Foley. She does see neurology but is unsure of the name. She sees Dr. Simental for oncology. Diagnosis: Stroke: No - Discharge Data Discharge Date: 12/10/20 (Admit date: 12/06/20) Discharge Disposition: DC/Tfer to SNF 03 Condition: Good - Referral to Home Health Primary Care Physician: Eliot Samuels MD - Discharge Diagnosis/Problem(s) (1) Frequent falls SNOMED Code(s): 187480878 ICD Code: R29.6 - REPEATED FALLS Status: Acute Priority: High Current Visit: Yes (2) Fall at home SNOMED Code(s): 68238006 ICD Code: W19.XXXA - UNSPECIFIED FALL, INITIAL ENCOUNTER; Y92.009 - UNSP PLACE IN UNSP NON-INSTITUT (PRIVATE) RESIDENCE PLACE Status: Acute Priority: High Current Visit: Yes Qualifiers: Encounter type: initial encounter Qualified Code(s): W19.XXXA - Unspecified fall, initial encounter; Y92.009 - Unspecified place in unspecified non- institutional (private) residence as the place of occurrence of the external cause (3) Generalized weakness SNOMED Code(s): 25598878 ICD Code: R53.1 - WEAKNESS Status: Acute Priority: High Current Visit: Yes (4) Left-sided weakness SNOMED Code(s): 121287824 ICD Code: R53.1 - WEAKNESS Status: Chronic Priority: High Current Visit: Yes (5) Anxiety SNOMED Code(s): 48330013 ICD Code: F41.9 - ANXIETY DISORDER, UNSPECIFIED Status: Chronic Priority: Low Current Visit: No (6) Arthritis SNOMED Code(s): 1239290 ICD Code: M19.90 - UNSPECIFIED OSTEOARTHRITIS, UNSPECIFIED SITE Status: Chronic Priority: Low Current Visit: No (7) HLD (hyperlipidemia) SNOMED Code(s): 55560898 ICD Code: E78.5 - HYPERLIPIDEMIA, UNSPECIFIED Status: Chronic Priority: Low Current Visit: No Qualifiers: Hyperlipidemia type: unspecified Qualified Code(s): E78.5 - Hyperlipidemia, unspecified (8) HTN (hypertension) SNOMED Code(s): 96581102 ICD Code: I10 - ESSENTIAL (PRIMARY) HYPERTENSION Status: Chronic Priority: Medium Current Visit: No Qualifiers: Hypertension type: unspecified Qualified Code(s): I10 - Essential (primary) hypertension (9) History of CVA with residual deficit SNOMED Code(s): 451152181 ICD Code: I69.30 - UNSPECIFIED SEQUELAE OF CEREBRAL INFARCTION Status: Chronic Priority: Medium Current Visit: Yes (10) History of breast cancer SNOMED Code(s): 263907368 ICD Code: Z85.3 - PERSONAL HISTORY OF MALIGNANT NEOPLASM OF BREAST Status: Chronic Priority: Low Current Visit: No (11) History of cerebral aneurysm repair SNOMED Code(s): 680819814 ICD Code: Z98.890 - OTHER SPECIFIED POSTPROCEDURAL STATES; Z86.79 - PERSONAL HISTORY OF OTHER DISEASES OF THE CIRCULATORY SYSTEM Status: Chronic Priority: Low Current Visit: No (12) History of mastectomy SNOMED Code(s): 210864901, 255096786 ICD Code: Z90.10 - ACQUIRED ABSENCE OF UNSPECIFIED BREAST AND NIPPLE Status: Chronic Priority: Low Current Visit: No Qualifiers: Laterality: left Qualified Code(s): Z90.12 - Acquired absence of left breast and nipple (13) Lung cancer SNOMED Code(s): 511224680 ICD Code: C34.90 - MALIGNANT NEOPLASM OF UNSP PART OF UNSP BRONCHUS OR LUNG Status: Chronic Priority: High Current Visit: Yes Qualifiers: Laterality: unspecified laterality Lung location: unspecified part of lung Qualified Code(s): C34.90 - Malignant neoplasm of unspecified part of unspecified bronchus or lung (14) Osteoporosis SNOMED Code(s): 82220728 ICD Code: M81.0 - AGE-RELATED OSTEOPOROSIS W/O CURRENT PATHOLOGICAL FRACTURE Status: Chronic Priority: Low Current Visit: No Qualifiers: Osteoporosis type: unspecified Presence of current pathological fracture: without current pathological fracture Qualified Code(s): M81.0 - Age-related osteoporosis without current pathological fracture (15) Failure to thrive SNOMED Code(s): 07780773 ICD Code: PYD1395 - Status: Acute Priority: High Current Visit: Yes Qualifiers: Failure to thrive age range: in adult Qualified Code(s): R62.7 - Adult failure to thrive (16) Hypomagnesemia SNOMED Code(s): 299491493 ICD Code: E83.42 - HYPOMAGNESEMIA Status: Resolved Priority: High Current Visit: Yes (17) Hypoalbuminemia SNOMED Code(s): 683126317 ICD Code: E88.09 - OTH DISORDERS OF PLASMA-PROTEIN METABOLISM, NEC Status: Acute Priority: High Current Visit: Yes (18) Hypokalemia SNOMED Code(s): 97502281 ICD Code: E87.6 - HYPOKALEMIA Status: Chronic Priority: High Current Visit: Yes - Patient Summary/Data Consults: Consultations 12/06/20 07:57 Consult to Case Management/Kersey Department Supervisor [CONS] Routine Consult to Spiritual Care [CONS] Routine OT Evaluation and Treatment [CONS] Routine PT Evaluation and Treatment [CONS] Routine 12/06/20 11:52 Consult to Multimedia Instructional Designer [CONS] Routine Labs Pending at D/C: None Recommended Follow-up Testing/Procedures: Follow-up with primary care provider within 7-10 days of discharge, sooner if needed. -Recommend repeat CBC, CMP, and magnesium at that time Hospital Course: Nany is a 80-year-old female who was brought into the ED over concerns for CVA from [facility], where she resides. 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 CT scan was performed in the ED which showed mild generalized atrophy and previous surgery but nothing acute. Per patient and family she has been having multiple falls recently. Oddly her white count on admission was 12.99 and her CRP was 18.3. Procalcitonin was obtained and was 8.03. Chest x-ray, UA, and blood cultures were obtained with no signs of an infectious process. There were no areas of skin infection. Patient denied any recent infectious symptoms or fever. Because of this no antibiotics were given. She remained afebrile and all infectious markers trended downward. Recheck procalcitonin was greatly improved. She did work with PT and OT who recommended SNF placement. Electrolytes were supplemented. She will be discharged on home medications as ordered. She will be prescribed 3 days of 400 mg p.o. magnesium. She should continue PT and OT at SNF. She was ultimately accepted at [facility]. She discharged today. Recommend follow-up with primary care provider within 7 to 10 days. Recommend recheck CBC, CMP, and magnesium at that time. She was instructed to return the emergency room or contact her primary care provider should symptoms return or worsen. - Patient Instructions Diet: Pureed Diet, Other: NDD1 diet Activity: As Tolerated Driving: Do Not Drive Showering/Bathing: May Shower Notify Provider of: Fever, Increased Pain, Nausea and/or Vomiting Other/Special Instructions: Follow-up with primary care provider within 7-10 days of discharge, sooner if needed. Resume home medications as directed. Your magnesium was a bit low here and was supplemented. You will be prescribed 3 days of magnesium supplementation. Your primary care provider should re-check this in the future. Continue PT/OT at SNF. Should symptoms return or worsen contact primary care provider or return to the Emergency Department. - Discharge Plan *PRESCRIPTION DRUG MONITORING PROGRAM REVIEWED*: Not Applicable *COPY OF PRESCRIPTION DRUG MONITORING REPORT IN PATIENT FRANCISCA: Not Applicable Prescriptions/Med Rec: Magnesium Oxide 400 mg PO DAILY #3 tablet Home Medications: Home Meds Gabapentin 300 mg PO BEDTIME 06/01/16 [History] Clopidogrel Bisulfate [Clopidogrel] 75 mg PO DAILY 01/04/19 [History] Rosuvastatin [Crestor] 20 mg PO BEDTIME 01/04/19 [History] Sertraline [Zoloft] 100 mg PO DAILY 01/04/19 [History] Aspirin 81 mg PO DAILY 10/16/19 [History] Metoprolol Succinate [Toprol Xl] 50 mg PO DAILY 10/16/19 [History] Multivitamin [Multivitamins] 1 cap PO DAILY 10/16/19 [History] Potassium Chloride 20 meq PO DAILY #30 tablet.er 09/27/20 [Rx] Acetaminophen [Pain Relief] 650 mg PO ASDIRECTED PRN 10/14/20 [History] Clotrimazole [Clotrimazole 1%] 1 dose TOP BID 10/14/20 [History] Imipramine HCl [Imipramine] 25 mg PO QPM 10/14/20 [History] Anastrozole [Arimidex] 1 mg PO DAILY 10/15/20 [History] Calcium Carbonate [Tums] 400 mg PO 6XDAY PRN MDD 15 tabs 10/15/20 [History] calcium polycarbophiL [Fiber Tabs] 1,250 mg PO BID 10/15/20 [History] Cholecalciferol (Vitamin D3) [Vitamin D3] 4,000 unit PO DAILY 12/05/20 [History] Ferrous Sulfate 325 mg PO BID 12/05/20 [History] Fish Oil/Stanley-3 Fatty Acids [Fish Oil 1,000 MG] 1,000 mg PO DAILY 12/05/20 [History] Iron,Carbonyl/Ascorbic Acid [Vitron-C Tablet] 1 tab PO DAILY 12/05/20 [History] Megestrol [Megace] 20 mg PO DAILY 12/05/20 [History] lidocaine HCL [Aspercreme Lidocaine] 1 applic TOP DAILY PRN 12/09/20 [History] Magnesium Oxide 400 mg PO DAILY #3 tablet 12/10/20 [Rx] Oxygen Therapy Mode: Room Air Patient Handouts: Deconditioning, Understanding Your Risk for Falls, Weakness Referrals: Eliot Samuels MD [Primary Care Provider] - 12/16/20 9:30 am (Please arrive at 9:15 for check in and appt. is at 9:30) Domenico Simental MD [Ordering Only Provider] - (Follow up with Dr. Simental as needed) - Discharge Summary/Plan Comment DC Time >30 min.: Yes (45 mins ) - General Info Date of Service: 12/10/20 Admission Dx/Problem (Free Text: Admission Diagnosis/Problem Admission Diagnosis/Problem Weakness Functional Status: Reports: Pain Controlled, Tolerating Diet, Ambulating, Urinating. Denies: New Symptoms - Review of Systems General: Reports: Weakness (improving ). Denies: Fever, Fatigue, Malaise, Chills HEENT: Reports: No Symptoms. Denies: Headaches, Sore Throat Pulmonary: Reports: No Symptoms. Denies: Shortness of Breath, Cough, Sputum, Wheezing Cardiovascular: Reports: No Symptoms. Denies: Chest Pain, Palpitations, Dyspnea on Exertion Gastrointestinal: Reports: No Symptoms. Denies: Abdominal Pain, Constipation, Diarrhea, Nausea, Vomiting Genitourinary: Reports: No Symptoms. Denies: Pain Musculoskeletal: Reports: No Symptoms Skin: Reports: No Symptoms. Denies: Cyanosis Neurological: Reports: Pre-Existing Deficit (Left arm hemiparesis), Difficulty Walking, Weakness (Improving), Gait Disturbance. Denies: Confusion, Dizziness, Headache Psychiatric: Reports: No Symptoms - Patient Data Vitals - Most Recent: Last Vital Signs Temp 98.2 F 12/10/20 07:20 Pulse 100 12/10/20 07:20 Resp 14 12/10/20 07:20 BP 122/73 12/10/20 07:20 Pulse Ox 98 12/10/20 07:20 Weight - Most Recent: 110 lb 1.5 oz I&O - Last 24 hours: Intake & Output 12/09/20 12/10/20 12/10/20 22:59 06:59 14:59 Intake Total 920 100 Output Total 500 Balance 420 100 Lab Results - Last 24 hrs: Laboratory Results - last 24 hr 12/09/20 12/10/20 12/10/20 Range/Units 06:03 04:30 05:57 WBC 4.12 (3.98-10.04) K/mm3 RBC 4.10 (3.98-5.22) M/mm3 Hgb 10.0 L (11.2-15.7) gm/dl Hct 31.3 L (34.1-44.9) % MCV 76.3 L (79.4-94.8) fl MCH 24.4 L (25.6-32.2) pg MCHC 31.9 L (32.2-35.5) g/dl RDW Std Deviation 43.0 (36.4-46.3) fL Plt Count 184 (182-369) K/mm3 MPV 10.1 (9.4-12.3) fl Neut % (Auto) 72.9 H (34.0-71.1) % Lymph % (Auto) 16.5 L (19.3-51.7) % [place] % (Auto) 8.0 (4.7-12.5) % Eos % (Auto) 2.2 (0.7-5.8) Baso % (Auto) 0.2 (0.1-1.2) % Neut # (Auto) 3.00 (1.56-6.13) K/mm3 Lymph # (Auto) 0.68 L (1.18-3.74) K/mm3 [place] # (Auto) 0.33 (0.24-0.36) K/mm3 Eos # (Auto) 0.09 (0.04-0.36) K/mm3 Baso # (Auto) 0.01 (0.01-0.08) K/mm3 Sodium (136-145) mEq/L Potassium (3.5-5.1) mEq/L Chloride (98-107) mEq/L Carbon Dioxide (21-32) mEq/L Anion Gap (5-15) BUN (7-18) mg/dL Creatinine (0.55-1.02) mg/dL Est Cr Clr Drug Dosing mL/min Estimated GFR (MDRD) (>60) mL/min BUN/Creatinine Ratio (14-18) Glucose (83-115) mg/dL Calcium (8.5-10.1) mg/dL Magnesium (1.8-2.4) mg/dl C-Reactive Protein (<1.0) mg/dL Procalcitonin 2.18 H ng/mL SARS-CoV-2 RNA (DONNY) Negative (NEGATIVE) 12/10/20 Range/Units 05:57 WBC (3.98-10.04) K/mm3 RBC (3.98-5.22) M/mm3 Hgb (11.2-15.7) gm/dl Hct (34.1-44.9) % MCV (79.4-94.8) fl MCH (25.6-32.2) pg MCHC (32.2-35.5) g/dl RDW Std Deviation (36.4-46.3) fL Plt Count (182-369) K/mm3 MPV (9.4-12.3) fl Neut % (Auto) (34.0-71.1) % Lymph % (Auto) (19.3-51.7) % [place] % (Auto) (4.7-12.5) % Eos % (Auto) (0.7-5.8) Baso % (Auto) (0.1-1.2) % Neut # (Auto) (1.56-6.13) K/mm3 Lymph # (Auto) (1.18-3.74) K/mm3 [place] # (Auto) (0.24-0.36) K/mm3 Eos # (Auto) (0.04-0.36) K/mm3 Baso # (Auto) (0.01-0.08) K/mm3 Sodium 140 (136-145) mEq/L Potassium 3.4 L (3.5-5.1) mEq/L Chloride 104 (98-107) mEq/L Carbon Dioxide 21 (21-32) mEq/L Anion Gap 18.4 H (5-15) BUN 17 (7-18) mg/dL Creatinine 0.8 (0.55-1.02) mg/dL Est Cr Clr Drug Dosing 44.95 mL/min Estimated GFR (MDRD) > 60 (>60) mL/min BUN/Creatinine Ratio 21.3 H (14-18) Glucose 94 (83-115) mg/dL Calcium 8.8 (8.5-10.1) mg/dL Magnesium 1.9 (1.8-2.4) mg/dl C-Reactive Protein 3.4 H* (<1.0) mg/dL Procalcitonin ng/mL SARS-CoV-2 RNA (DONNY) (NEGATIVE) JEM Results - Last 24 hrs: Microbiology 12/06/20 15:54 Aerobic Blood Culture - Preliminary Blood - Venous - Lab Draw NO GROWTH AFTER 3 DAYS Anaerobic Blood Culture - Final 12/06/20 15:42 Aerobic Blood Culture - Preliminary Blood - Venous NO GROWTH AFTER 3 DAYS Anaerobic Blood Culture - Final Med Orders - Current: Current Medications Acetaminophen (Tylenol) 650 mg PO Q4H PRN PRN Reason: Pain (Mild 1-3)/fever Last Admin: 12/09/20 05:56 Dose: 650 mg Documented by: Anastrozole (Arimidex) 1 mg PO DAILY [facility] Last Admin: 12/09/20 09:31 Dose: 1 mg Documented by: Aspirin (Aspirin) 81 mg PO DAILY [facility] Last Admin: 12/09/20 09:27 Dose: 81 mg Documented by: Calcium Carbonate/Glycine (Tums) 500 mg PO Q4H PRN PRN Reason: upset stomach Calcium Polycarbophil (Fibercon) 1,250 mg PO BID [facility] Last Admin: 12/09/20 20:50 Dose: 1,250 mg Documented by: Cholecalciferol (Vitamin D3) 5,000 unit PO DAILY [facility] Last Admin: 12/09/20 09:28 Dose: 5,000 unit Documented by: Clopidogrel Bisulfate (Plavix) 75 mg PO DAILY [facility] Last Admin: 12/09/20 09:28 Dose: 75 mg Documented by: Clotrimazole (Lotrimin Af 1% Crm) 0 gm TOP BID [facility] Last Admin: 12/09/20 20:52 Dose: 1 applic Documented by: Docusate Sodium (Colace) 100 mg PO BID PRN PRN Reason: Constipation Ferrous Sulfate (Ferrous Sulfate) 324 mg PO BID [facility] Last Admin: 12/09/20 20:52 Dose: 324 mg Documented by: Gabapentin (Neurontin) 300 mg PO BEDTIME [facility] Last Admin: 12/09/20 20:50 Dose: 300 mg Documented by: Imipramine HCl (Imipramine Hcl) 25 mg PO BEDTIME [facility] Last Admin: 12/09/20 20:52 Dose: 25 mg Documented by: Lidocaine (Aspercreme 4%) 0 each TOP DAILY PRN PRN Reason: Pain Loperamide HCl (Imodium) 2 mg PO Q6H PRN PRN Reason: Diarrhea Last Admin: 12/08/20 12:08 Dose: 2 mg Documented by: Magnesium Oxide (Magnesium Oxide) 400 mg PO DAILY [facility] Megestrol Acetate (Megace) 20 mg PO DAILY [facility] Last Admin: 12/09/20 09:31 Dose: 20 mg Documented by: Metoprolol Succinate (Toprol Xl) 50 mg PO DAILY [facility] Last Admin: 12/09/20 09:27 Dose: 50 mg Documented by: Multivitamins (Thera) 1 each PO DAILY [facility] Last Admin: 12/09/20 09:28 Dose: 1 each Documented by: Rosuvastatin Calcium (Crestor) 20 mg PO BEDTIME [facility] Last Admin: 12/09/20 20:52 Dose: 20 mg Documented by: Sertraline HCl (Zoloft) 100 mg PO DAILY [facility] Last Admin: 12/09/20 09:28 Dose: 100 mg Documented by: Trolamine Salicylate (Aspercreme 10%) 0 gm TOP QID PRN PRN Reason: Pain Last Admin: 12/08/20 22:35 Dose: 1 applic Documented by: Discontinued Medications Acetaminophen (Tylenol) 650 mg PO NOW ONE Stop: 12/05/20 21:37 Last Admin: 12/05/20 21:45 Dose: 650 mg Documented by: Magnesium Sulfate (Magnesium Sulfate In Water 2 Gm/50 Ml) 2 gm in 50 mls @ 25 mls/hr IV ONETIME ONE Stop: 12/05/20 23:16 Last Admin: 12/05/20 21:30 Dose: 25 mls/hr Documented by: Lactated Ringer's (Ringers, Lactated) 1,000 mls @ 75 mls/hr IV ASDIRECTED [facility] Stop: 12/06/20 21:34 Last Admin: 12/06/20 09:25 Dose: 75 mls/hr Documented by: Non-Formulary Medication (Iron,Carbonyl/Ascorbic Acid [Vitron-C Tablet]) 1 tab PO DAILY [facility] Last Admin: 12/06/20 09:46 Dose: Not Given Documented by: Potassium Chloride (Klor-Con M20) 20 meq PO DAILY [facility] Last Admin: 12/07/20 09:04 Dose: 20 meq Documented by: Potassium Chloride (Klor-Con M20) 40 meq PO BID [facility] Stop: 12/08/20 21:01 Last Admin: 12/08/20 20:27 Dose: 40 meq Documented by: Potassium Chloride (Klor-Con M20) 40 meq PO ONETIME ONE Stop: 12/10/20 08:01 - Exam Quality Assessment: Reports: DVT Prophylaxis. Denies: Supplemental Oxygen, Urine Catheter General: Reports: Alert, Oriented, Cooperative, No Acute Distress HEENT: Reports: Pupils Equal, Pupils Reactive, Mucous Membr. Moist/[place] Neck: Reports: Supple, Trachea Midline Lungs: Reports: Clear to Auscultation, Normal Respiratory Effort Cardiovascular: Reports: Regular Rate, Regular Rhythm GI/Abdominal Exam: Normal Bowel Sounds, Soft, Non-Tender, No Distention (Female) Exam: Deferred Rectal (Female) Exam: Deferred Back Exam: Reports: Normal Inspection, Full Range of Motion Extremities: Normal Inspection, Normal Range of Motion, Non-Tender, No Pedal Edema, Normal Capillary Refill Skin: Reports: Warm, Dry, Intact Neurological: Reports: No New Focal Deficit Psy/Mental Status: Reports: Alert
[2020-12-10] MEDS ORDERED: Magnesium Oxide 400 MG Tab PO SCH (09:00)
[2020-12-10] MEDS: Multivitamins,Therapeutic Tab PO SCH (09:48)
[2020-12-10] MEDS: Sertraline 50 MG Tab PO SCH (09:48)
[2020-12-10] MEDS: Aspirin 81 MG Tab.Chew PO SCH (09:48)
[2020-12-10] MEDS: Calcium Polycarbophil 625 MG Tab PO SCH (09:48)
[2020-12-10] MEDS: Ferrous Sulfate 324 MG Tab.EC PO SCH (09:49)
[2020-12-10] MEDS: Clopidogrel 75 MG Tab PO SCH (09:49)
[2020-12-10] MEDS: Cholecalciferol (Vitamin D3) 5,000 UNIT Cap PO SCH (09:49)
[2020-12-10] MEDS: Acetaminophen 325 MG Tab PO PRN (09:49)
[2020-12-10] MEDS: Metoprolol Succinate 25 MG Tab.ER PO SCH (09:51)
[2020-12-10] MEDS: Clotrimazole 1% Crm 30 GM Tube TOP SCH (09:53)
[2020-12-10] MEDS: Anastrozole 1 MG Tab PO SCH (09:53)
[2020-12-10] MEDS: Megestrol 40 MG Tab PO SCH (09:54)
== END 2020-12-10 11:00 | DRG 948 ==
LOC: JD.ED 19:35 → JD.MS 12-06 01:05 → INTOOBSV 12-06 01:05 → OBSVTOIN 12-06 01:05
PROVIDERS: ADMIT Internal Medicine Cardiovascular Disease; ATTEND Internal Medicine Cardiovascular Disease
DX: R53.1 Weakness (principal); W19.XXXA Unspecified fall, initial encounter; I69.954 Hemiplegia and hemiparesis following unspecified cerebrovascular disease affecting left non-dominant side; H54.7 Unspecified visual loss; E78.00 Pure hypercholesterolemia, unspecified; R29.6 Repeated falls; E78.5 Hyperlipidemia, unspecified; Z66 Do not resuscitate; I10 Essential (primary) hypertension; R32 Unspecified urinary incontinence; M19.90 Unspecified osteoarthritis, unspecified site; M81.0 Age-related osteoporosis without current pathological fracture; F03.90 Unspecified dementia, unspecified severity, without behavioral disturbance, psychotic disturbance, mood disturbance, and anxiety; F41.9 Anxiety disorder, unspecified; R62.7 Adult failure to thrive; Z20.822 Contact with and (suspected) exposure to COVID-19; E83.42 Hypomagnesemia; E87.6 Hypokalemia; G31.89 Other specified degenerative diseases of nervous system; Z85.3 Personal history of malignant neoplasm of breast; Z79.02 Long term (current) use of antithrombotics/antiplatelets; Z87.891 Personal history of nicotine dependence; Y92.009 Unspecified place in unspecified non-institutional (private) residence as the place of occurrence of the external cause; Z98.890 Other specified postprocedural states; Z91.81 History of falling; Z90.12 Acquired absence of left breast and nipple; Z79.82 Long term (current) use of aspirin; Z79.899 Other long term (current) drug therapy; Z85.118 Personal history of other malignant neoplasm of bronchus and lung
CPT/HCPCS: 36415; 70450; 71045; 80053; 81001; 82962; 83735; 84484; 85007; 85027; 93005; 96365; 96366; 99285; A9270; J3475; 71046; 71046-26; 80048; 82306; 82607; 82746; 83605; 84145; 85025; 86140; 86738; 87040; 87641; 93010; 97110-GP; 97112-GP; 97116-GP; 97162-GP; 97165-GO; 97530-GO; 97535-GO; 99223; 99232; 99239; J7120; U0002